=== PATIENT | male | born 1965 | race Caucasian/White ===

== ENCOUNTER 2018-05-15 15:06 | Emergency (ER) | payer MEDICAID, SELFPAY ==
[2018-05-15 15:14] VITALS: BP 115/70; PULSE 68; RESP 16; TEMP 37; O2SAT 99
--- NOTE | 2018-05-15 15:18 | W.ED.GENAD ---
Discharge Plan Disposition Patient Disposition: HOME Condition: Good Discharge Details Chief Complaint: Sorethroat Clinical Impression: Acute sore throat, URI (upper respiratory infection) Primary Care Provider: Jos Nance ED Provider: Christiano Elliott Home Meds and New Rx's Prescriptions: No Action gabapentin 100 mg capsule 100 mg PO BID Qty: 60 RF: 5 ranitidine HCl 150 mg tablet 150 mg PO HS Qty: 90 RF: 3 metformin [Glucophage] 1,000 mg tablet 1,000 mg PO BID Qty: 180 RF: 4 isosorbide mononitrate 30 mg tablet extended release 24 hr 30 mg PO DAILY Qty: 90 RF: 3 aspirin [Aspirin Low-Strength] 81 MG tablet,chewable 81 mg PO DAILY RF: 0 lancets [[employer] AccessTouch Delica Lancets] 1 EACH misc 1 ea Miscellaneous TID Qty: 100 RF: 5 blood-glucose meter [[employer] AccessTouch Ultra2] 1 EACH kit 1 ea Miscellaneous DAILY Qty: 1 RF: 0 blood-glucose meter [[employer] AccessTouch UltraMini] 1 EACH kit 1 ea Miscellaneous QID Qty: 1 RF: 0 pantoprazole 40 MG tablet,delayed release (DR/EC) 40 mg PO DAILY Qty: 90 RF: 4 nitroglycerin [Nitrostat] 0.4 MG tablet, sublingual 0.4 mg Sublingual ONCE PRNQty: 30 RF: 0 rosuvastatin [Crestor] 40 MG tablet 40 mg PO DAILY Qty: 90 RF: 4 Spiriva with HandiHaler 18 MCG capsule, w/inhalation device 1 cap Inhalation DAILY Qty: 30 RF: 5 infoBizzTOUCH ULTRA TEST STRIPS 1 EACH strip 1 ea Miscellaneous QID Qty: 120 RF: 5 metoprolol succinate 100 MG tablet extended release 24 hr 1 tab PO DAILY Qty: 90 RF: 3 ProAir HFA 8.5 GM HFA aerosol inhaler 2 puff Inhalation Q4H PRN Qty: 3 RF: 4 Symbicort 10.2 GM HFA aerosol inhaler 2 puff Inhalation BID Qty: 1 RF: 3 Humulin R U-500 (Conc) Kwikpen 500 unit/mL (3 mL) insulin pen 20 - 50 unit subcut AC Qty: 6 RF: 3 pen needle, diabetic [Pen Needle] 31 gauge x 5/16 needle 1 ea Miscellaneous TID Qty: 100 RF: 11 clopidogrel [Plavix] 75 mg tablet 75 mg PO DAILY Qty: 90 RF: 4 Discharge Instructions Instructions: Upper Respiratory Infection (ED) Additional Instructions: If you notice any worsening of your symptoms, or any new symptoms such as vomiting, diarrhea, fever, chills, shortness of breath, chest pain, numbness, weakness, or fainting , please return immediately to the emergency department for reevaluation. Please follow up with your primary care provider as soon as possible for reassessment and reevaluation. As always, it was a pleasure participating in your medical care today. Referrals: Jos Nance [Primary Care Provider] - Medical Decision Making This is a 53-year-old male who presents with signs and symptoms of a sore throat. Strep is negative. I suspect adenovirus and rhinovirus as to the cause. Symptomatology shows no red flags of meningitis, fever, chills and reassuring vital signs. Patient will be discharged home with recommendations for continued Tylenol, Motrin, salt water gargles, and how to use. He does have follow-up with his family doctor in the next 3 days. I have extensively reviewed the treatment plan and discharge instructions with the patient and their family. I have addressed all patient concerns at this time. The patient and family was made aware of what symptoms to monitor for that would warrant a return to the emergency department. Discussed the plan with the patient and family, they demonstrate verbal understanding and agreement with our assessment and plan at this time. HPI General Date/Time Provider Initiated Documentation: 05/15/18 15:07. HPI Narrative: This is a 53-year-old male with past medical history of coronary artery disease, Plavix use, fibrillator, who presents for sore throat. It is been present for the last 5 days. Is slightly improved with Motrin salt water washes. Comes in today for evaluation of if it is strep. He denies any headache or neck pain. He denies any fever or chills. No other modifying factors. He has no difficulty swallowing or drinking. Related Data Home Medications Medication Instructions Recorded Confirmed aspirin [Aspirin Low-Strength] 81 mg PO DAILY tab-cap 03/27/13 02/11/18 lancets [One Touch Delica] #100 ea 03/26/14 02/11/18 blood-glucose meter [Onetouch #1 kit 01/22/16 02/11/18 Ultra2] blood-glucose meter [Onetouch #1 kit 05/29/16 02/11/18 Ultramini] pantoprazole 40 mg PO DAILY #90 tab-cap 08/10/17 02/11/18 nitroglycerin [Nitrostat] 0.4 mg SUBLINGUAL ONCE PRN #30 11/09/17 02/11/18 tab-cap rosuvastatin [Crestor] 40 mg PO DAILY #90 tab-cap 11/09/17 02/11/18 tiotropium bromide [Spiriva 1 cap INHALATION DAILY #30 tab-cap 11/09/17 02/11/18 Handihaler] albuterol sulfate [Proair Hfa] 2 puff INHALATION Q4H PRN #3 11/15/17 02/11/18 inhaler budesonide-formoterol [Symbicort 2 puff INHALATION BID #1 inhaler 11/15/17 02/11/18 160/4.5 Mcg Inhaler] metoprolol succinate 1 tab PO DAILY #90 tab 11/15/17 02/11/18 gabapentin 100 mg capsule 100 mg PO BID #60 tab-cap 02/11/18 02/11/18 isosorbide mononitrate ER 30 mg 30 mg PO DAILY #90 tab-cap 02/11/18 02/11/18 tablet,extended release 24 hr metformin 1,000 mg tablet 1,000 mg PO BID #180 tab-cap 02/11/18 02/11/18 ranitidine 150 mg tablet 150 mg PO HS #90 tab-cap 02/11/18 02/11/18 insulin regular human U-500 20 - 50 unit SUBCUT AC #6 pen 03/22/18 concentrate 500 unit/mL(3 mL) subcut pen pen needle, diabetic 31 gauge x #100 ea 03/28/1809/15 clopidogrel 75 mg tablet 75 mg PO DAILY #90 tab 05/13/18 Previous Rx's Medication Instructions Recorded pantoprazole 40 mg PO DAILY #90 tab-cap 08/10/17 rosuvastatin [Crestor] 40 mg PO DAILY #90 tab-cap 11/09/17 tiotropium bromide [Spiriva 1 cap INHALATION DAILY #30 tab-cap 11/09/17 Handihaler] albuterol sulfate [Proair Hfa] 2 puff INHALATION Q4H PRN #3 11/15/17 inhaler budesonide-formoterol [Symbicort 2 puff INHALATION BID #1 inhaler 11/15/17 160/4.5 Mcg Inhaler] metoprolol succinate 1 tab PO DAILY #90 tab 11/15/17 gabapentin 100 mg capsule 100 mg PO BID #60 tab-cap 02/11/18 isosorbide mononitrate ER 30 mg 30 mg PO DAILY #90 tab-cap 02/11/18 tablet,extended release 24 hr metformin 1,000 mg tablet 1,000 mg PO BID #180 tab-cap 02/11/18 ranitidine 150 mg tablet 150 mg PO HS #90 tab-cap 02/11/18 insulin regular human U-500 20 - 50 unit SUBCUT AC #6 pen 03/22/18 concentrate 500 unit/mL(3 mL) subcut pen pen needle, diabetic 31 gauge x #100 ea 03/28/1809/15 clopidogrel 75 mg tablet 75 mg PO DAILY #90 tab 05/13/18 Allergies Allergy/AdvReac Type Severity Reaction Status Date / Time No Known Allergies Allergy Unverified 05/15/18 15:20 Review of Systems Review of Systems All systems reviewed & are unremarkable except as noted in HPI and below PFSH Surgical History Stent placement Social History Smoking/Tobacco Use Status: Former Tobacco Use Exam Narrative Exam Narrative: 1.Const: Well-nourished, Well-developed, appearing stated age 2.Eyes: PERRL, no conjunctival injection, and symmetrical lids. 3.ENT: Atraumatic external nose and ears. Moist MM. Neck: Symmetric, trachea midline, No thyromegaly. Patient demonstrates good movement of cervical neck. There is no nuchal rigidity, no nuchal tenderness. Patient is able to flex the neck without any difficulty or significant pain. Negative Kernig's and Brudzinski sign. No significant erythema the posterior oropharynx. No tonsillar exudates 4.CVS: +S1/S2, No murmurs or gallops. Peripheral pulses 2+ and equal in all extremities. Brisk capillary refill in all extremities. 5.RESP: Unlabored respiratory effort. Clear to auscultation bilaterally. No wheezes rales or rhonchi 6.GI: Soft, Nontender/Nondistended, No hepatosplenomegaly. No guarding or rebound. 7.MSK: Normocephalic/Atraumatic, Extremities w/o deformity or ttp No cyanosis or clubbing, Normal movement of all extremities 8.Skin: Warm, Dry. No rashes or lesions. 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 Sensation grossly intact, no focal neurologic deficits. 10.Psych: (AAO) x3. Appropriate mood and affect
--- NOTE | 2018-05-15 15:37 | ED.GENADUL_ITS ---
Discharge Plan Disposition Patient Disposition: HOME Condition: Good Discharge Details Chief Complaint: Sorethroat Clinical Impression: Acute sore throat, URI (upper respiratory infection) Primary Care Provider: Jos Nance ED Provider: Christiano Elliott Home Meds and New Rx's Prescriptions: No Action gabapentin 100 mg capsule 100 mg PO BID Qty: 60 RF: 5 ranitidine HCl 150 mg tablet 150 mg PO HS Qty: 90 RF: 3 metformin [Glucophage] 1,000 mg tablet 1,000 mg PO BID Qty: 180 RF: 4 isosorbide mononitrate 30 mg tablet extended release 24 hr 30 mg PO DAILY Qty: 90 RF: 3 aspirin [Aspirin Low-Strength] 81 MG tablet,chewable 81 mg PO DAILY RF: 0 lancets [[employer]Touch Delica Lancets] 1 EACH misc 1 ea Miscellaneous TID Qty: 100 RF: 5 blood-glucose meter [[employer]Touch Ultra2] 1 EACH kit 1 ea Miscellaneous DAILY Qty: 1 RF: 0 blood-glucose meter [[employer]Touch UltraMini] 1 EACH kit 1 ea Miscellaneous QID Qty: 1 RF: 0 pantoprazole 40 MG tablet,delayed release (DR/EC) 40 mg PO DAILY Qty: 90 RF: 4 nitroglycerin [Nitrostat] 0.4 MG tablet, sublingual 0.4 mg Sublingual ONCE PRNQty: 30 RF: 0 rosuvastatin [Crestor] 40 MG tablet 40 mg PO DAILY Qty: 90 RF: 4 Spiriva with HandiHaler 18 MCG capsule, w/inhalation device 1 cap Inhalation DAILY Qty: 30 RF: 5 TagkastTOUCH ULTRA TEST STRIPS 1 EACH strip 1 ea Miscellaneous QID Qty: 120 RF: 5 metoprolol succinate 100 MG tablet extended release 24 hr 1 tab PO DAILY Qty: 90 RF: 3 ProAir HFA 8.5 GM HFA aerosol inhaler 2 puff Inhalation Q4H PRN Qty: 3 RF: 4 Symbicort 10.2 GM HFA aerosol inhaler 2 puff Inhalation BID Qty: 1 RF: 3 Humulin R U-500 (Conc) Kwikpen 500 unit/mL (3 mL) insulin pen 20 - 50 unit subcut AC Qty: 6 RF: 3 pen needle, diabetic [Pen Needle] 31 gauge x 5/16 needle 1 ea Miscellaneous TID Qty: 100 RF: 11 clopidogrel [Plavix] 75 mg tablet 75 mg PO DAILY Qty: 90 RF: 4 Discharge Instructions Instructions: Upper Respiratory Infection (ED) Additional Instructions: If you notice any worsening of your symptoms, or any new symptoms such as vomiting, diarrhea, fever, chills, shortness of breath, chest pain, numbness, weakness, or fainting , please return immediately to the emergency department for reevaluation. Please follow up with your primary care provider as soon as possible for reassessment and reevaluation. As always, it was a pleasure participating in your medical care today. Referrals: Jos Nance [Primary Care Provider] - Medical Decision Making This is a 53-year-old male who presents with signs and symptoms of a sore throat. Strep is negative. I suspect adenovirus and rhinovirus as to the cause. Symptomatology shows no red flags of meningitis, fever, chills and reassuring vital signs. Patient will be discharged home with recommendations for continued Tylenol, Motrin, salt water gargles, and how to use. He does have follow-up with his family doctor in the next 3 days. I have extensively reviewed the treatment plan and discharge instructions with the patient and the ir family. I have addressed all patient concerns at this time. The patient and family was made aware of what symptoms to monitor for that would warrant a return to the emergency department. Discussed the plan with the patient and family, they demonstrate verbal understanding and agreement with our assessment and plan at this time. HPI General Date/Time Provider Initiated Documentation: 05/15/18 15:07 . HPI Narrative: This is a 53-year-old male with past medical history of coronary artery disease, Plavix use, fibrillator, who presents for sore throat. It is been present for the last 5 days. Is slightly improved with Motrin salt water washes. Comes in today for evaluation of if it is strep. He denies any headache or neck pain. He denies any fever or chills. No other modifying factors. He has no difficulty swallowing or drinking. Related Data Home Medications Medication Instructions Recorded Confirmed aspirin [Aspirin Low-Strength] 81 mg PO DAILY tab-cap 03/27/13 02/11/18 lancets [One Touch Delica] #100 ea 03/26/14 02/11/18 blood-glucose meter [Onetouch #1 kit 01/22/16 02/11/18 Ultra2] blood-glucose meter [Onetouch #1 kit 05/29/16 02/11/18 Ultramini] pantoprazole 40 mg PO DAILY #90 tab-cap 08/10/17 02/11/18 nitroglycerin [Nitrostat] 0.4 mg SUBLINGUAL ONCE PRN #30 11/09/17 02/11/18 tab-cap rosuvastatin [Crestor] 40 mg PO DAILY #90 tab-cap 11/09/17 02/11/18 tiotropium bromide [Spiriva 1 cap INHALATION DAILY #30 tab-cap 11/09/17 02/11/18 Handihaler] albuterol sulfate [Proair Hfa] 2 puff INHALATION Q4H PRN #3 11/15/17 02/11/18 inhaler budesonide-formoterol [Symbicort 2 puff INHALATION BID #1 inhaler 11/15/17 02/11/18 160/4.5 Mcg Inhaler] metoprolol succinate 1 tab PO DAILY #90 tab 11/15/17 02/11/18 gabapentin 100 mg capsule 100 mg PO BID #60 tab-cap 02/11/18 02/11/18 isosorbide mononitrate ER 30 mg 30 mg PO DAILY #90 tab-cap 02/11/18 02/11/18 tablet,extended release 24 hr metformin 1,000 mg tablet 1,000 mg PO BID #180 tab-cap 02/11/18 02/11/18 ranitidine 150 mg tablet 150 mg PO HS #90 tab-cap 02/11/18 02/11/18 insulin regular human U-500 20 - 50 unit SUBCUT AC #6 pen 03/22/18 concentrate 500 unit/mL(3 mL) subcut pen pen needle, diabetic 31 gauge x #100 ea 03/28/1809/15 clopidogrel 75 mg tablet 75 mg PO DAILY #90 tab 05/13/18 Previous Rx's Medication Instructions Recorded pantoprazole 40 mg PO DAILY #90 tab-cap 08/10/17 rosuvastatin [Crestor] 40 mg PO DAILY #90 tab-cap 11/09/17 tiotropium bromide [Spiriva 1 cap INHALATION DAILY #30 tab-cap 11/09/17 Handihaler] albuterol sulfate [Proair Hfa] 2 puff INHALATION Q4H PRN #3 11/15/17 inhaler budesonide-formoterol [Symbicort 2 puff INHALATION BID #1 inhaler 11/15/17 160/4.5 Mcg Inhaler] metoprolol succinate 1 tab PO DAILY #90 tab 11/15/17 gabapentin 100 mg capsule 100 mg PO BID #60 tab-cap 02/11/18 isosorbide mononitrate ER 30 mg 30 mg PO DAILY #90 tab-cap 02/11/18 tablet,extended release 24 hr metformin 1,000 mg tablet 1,000 mg PO BID #180 tab-cap 02/11/18 ranitidine 150 mg tablet 150 mg PO HS #90 tab-cap 02/11/18 insulin regular human U-500 20 - 50 unit SUBCUT AC #6 pen 03/22/18 concentrate 500 unit/mL(3 mL) subcut pen pen needle, diabetic 31 gauge x #100 ea 03/28/1809/15 clopidogrel 75 mg tablet 75 mg PO DAILY #90 tab 05/13/18 Allergies Allergy/AdvReac Type Severity Reaction Status Date / Time No Known Allergies Allergy Unverified 05/15/18 15:20 Review of Systems Review of Systems All systems reviewed & are unremarkable except as noted in HPI and below PFSH Surgical History Stent placement Social History Smoking/Tobacco Use Status: Former Tobacco Use Exam Narrative Exam Narrative: 1.Const: Well-nourished, Well-developed, appearing stated age 2.Eyes: PERRL, no conjunctival injection, and symmetrical lids. 3.ENT: Atraumatic external nose and ears. Moist MM. Neck: Symmetric, trachea midline, No thyromegaly. Patient demonstrates good movement of cervical neck. There is no nuchal rigidity, no nuchal tenderness. Patient is able to flex the neck without any difficulty or significant pain. Negative Kernig's and Brudzinski sign. No significant erythema the posterior oropharynx. No tonsillar exudates 4.CVS: +S1/S2, No murmurs or gallops. Peripheral pulses 2+ and equal in all extremities. Brisk capillary refill in all extremities. 5.RESP: Unlabored respiratory effort. Clear to auscultation bilaterally. No wheezes rales or rhonchi 6.GI: Soft, Nontender/Nondistended, No hepatosplenomegaly. No guarding or rebound. 7.MSK: Normocephalic/Atraumatic, Extremities w/o deformity or ttp No cyanosis or clubbing, Normal movement of all extremities 8.Skin: Warm, Dry. No rashes or lesions. 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 Sensation grossly intact, no focal neurologic deficits. 10.Psych: (AAO) x3. Appropriate mood and affect
== END 2018-05-15 15:43 | disposition home or self-care (01) ==
LOC: ER 15:43
PROVIDERS: Emergency Provider Student in an Organized Health Care Education/Training Program; PCP Family Medicine
DX: J06.9 Acute upper respiratory infection, unspecified (principal)
CPT/HCPCS: 87880; 99282; 87081

== ENCOUNTER 2018-05-26 08:39 | Outpatient (CLI) | payer MEDICAID, SELFPAY ==
[2018-05-26 16:11] LABS: Hemoglobin A1C 8.4 % (4.5-6.2)
== END 2018-05-26 08:59 ==
PROVIDERS: PCP Family Medicine; Visit Provider Family Medicine
DX: E11.65 Type 2 diabetes mellitus with hyperglycemia (principal)
CPT/HCPCS: 36415; 83036

== ENCOUNTER 2018-12-26 14:16 | Outpatient (CLI) | payer MEDICAID, SELFPAY ==
[2018-12-26 16:16] LABS: Hemoglobin A1C 8.2 % (4.5-6.2)
== END 2018-12-26 14:36 ==
PROVIDERS: PCP Family Medicine; Visit Provider Family Medicine
DX: E11.9 Type 2 diabetes mellitus without complications (principal)
CPT/HCPCS: 36415; 83036

== ENCOUNTER 2019-04-04 08:22 | Outpatient (CLI) | payer MEDICAID, SELFPAY ==
[2019-04-04 16:42] LABS: Hemoglobin A1C 7.8 % (4.5-6.2)
== END 2019-04-04 08:42 ==
PROVIDERS: PCP Family Medicine; Visit Provider Family Medicine
DX: E11.9 Type 2 diabetes mellitus without complications (principal)
CPT/HCPCS: 36415; 83036

== ENCOUNTER 2019-06-23 15:50 | Emergency (ER) | payer MEDICAID, SELFPAY ==
[2019-06-23] VITALS (44 sets, daily range): BP systolic 100–116; BP diastolic 50–63; PULSE 55–67; RESP 13–22; TEMP 36.5; O2SAT 91–98
--- NOTE | 2019-06-23 16:00 | DI.RAD_ITS ---
EXAM: XR PORTABLE CHEST AP CLINICAL HISTORY: chest pain TECHNIQUE: COMPARISON: No exams were available for comparison FINDINGS: Two portable views were obtained. There are vascular clips overlying left hilum. There is a transve nous cardiac pacemaker in position. Lungs are clear and well expanded. No pleural effusion on this frontal film. Cardiac size within normal limits. IMPRESSION: No evidence of acute process.
[2019-06-23 16:18] LABS: Abs Immature Grans 0.02 k/cumm (0.0-0.09); Absolute Basophil Count 0.05 k/cumm (0.0-0.2); Absolute Eosinophil Count 0.16 k/cumm (0.0-0.7); Absolute Lymphocyte Count 2.15 k/cumm (1.2-3.4); Absolute Monocyte Count 0.67 k/cumm (0.11-0.7); Absolute Neutrophil Count 4.01 k/cumm (1.2-6.7); Basophils % 0.7; Eosinophils % 2.3; HCT 38.4 % (40.0-50.0); HGB 12.5 g/dL (13.5-17.5); Immature Grans % 0.3 %; Lymphocytes % 30.5; Mean Corp. HGB Concentration 32.6 g/dL (32.0-36.0); Mean Corpuscular Hemoglobin 27.4 pg (27.0-33.0); Mean Platelet Volume 11.7 fL (8.0-11.0); Monocytes % 9.5; Neutrophils % 56.7; Platelet Count 249 x1000/uL (130-400); RBC 4.57 m/cumm (4.50-6.00); RBC Distribution Width 14.6 % (11.8-14.1); White Blood Cell Count 7.06 k/cumm (4.4-10.8)
[2019-06-23] MEDS: Normal Saline Flush 10 ML SYR IVP (16:25)
[2019-06-23] MEDS: Normal Saline 250 ML IV (16:28)
--- NOTE | 2019-06-23 16:36 | DI.VRAD_ITS ---
PROCEDURE INFORMATION: Exam: XR Chest, 1 View Exam date and time: 06/23/2019 4:20 PM Age: 54 years old Clinical indication: Chest pain; Prior surgery TECHNIQUE: Imaging protocol: XR of the chest Views: 1 view. COMPARISON: CR CHEST 2 VIEWS PA,LAT 03/20/2013 12:17 PM FINDINGS: Tubes, catheters and devices: Transvenous pacemaker leads Lungs: Unremarkable. No consolidation. Pleural space: Unremarkable. No pleural effusion. No pneumothorax. Heart/Mediastinum: Stable cardiac silhouette Bones/joints: Median sternotomy IMPRESSION: No acute process Dictated and Authenticated by: Eliana Tipton MD. Ordering:JADEN Ivy MD
[2019-06-23 16:43] LABS: ALT 23 U/L (16-63); AST 13 U/L (15-37); Albumin 3.5 g/dL (3.4-5.0); Alkaline Phosphatase 80 U/L (46-116); Anion Gap 7.6 mmol/L (3-11); BUN 19 mg/dL (7-18); Bilirubin, Total 0.4 mg/dL (0.2-1.0); CO2 31.4 mmol/L (21.0-32.0); Calcium 8.7 mg/dL (8.5-10.1); Chloride 102 mmol/L (98-107); Estimated GFR 53.01 (mL/min/1.73m2); Glucose 142 mg/dL (74-106); Potassium 3.7 mmol/L (3.5-5.1); Sodium 141 mmol/L (136-145); Total Protein 6.9 g/dL (6.4-8.2)
[2019-06-23 16:50] LABS: Troponin I 0.07 ng/Ml (<0.06)
--- NOTE | 2019-06-23 17:21 | W.ED.GENAD ---
Discharge Plan Disposition Patient Disposition: [facility] Condition: Critical Discharge Details Chief Complaint: Chest Pain Clinical Impression: Chest pain, Acute non-ST elevation myocardial infarction (NSTEMI) Primary Care Provider: Jos Nance ED Provider: Biju Youssef Home Meds and New Rx's Prescriptions: No Action Humulin R U-500 (Conc) Kwikpen 500 unit/mL (3 mL) insulin pen 20 - 50 unit subcut AC Qty: 6 RF: 3 nitroglycerin [Nitrostat] 0.4 mg tablet, sublingual 0.4 mg Sublingual Q5-15M MDD 3 tabs PRN (Reason: chest pain) Qty: 25 RF: 0 (DME) pen needle, diabetic [Pen Needle] 31 gauge x 5/16 needle 1 ea Miscellaneous TID Qty: 100 RF: 11 (DME) blood sugar diagnostic [Goodie Goodie App Ultra Blue Test Strip] Strip See Dose Instructions .ROUTE .MEDSUPPLY Qty: 400 RF: 3 budesonide-formoterol [Symbicort] 160-4.5 mcg/actuation HFA aerosol inhaler 2 puff Inhalation BID Qty: 1 RF: 3 Jardiance 25 mg tablet 25 mg PO QAM Qty: 90 RF: 3 fluoxetine 20 mg tablet 20 mg PO DAILY Qty: 90 RF: 3 metformin [Glucophage] 1,000 mg tablet 1,000 mg PO BID Qty: 180 RF: 4 metoprolol succinate 100 mg tablet extended release 24 hr 150 mg PO DAILY Qty: 135 RF: 3 pantoprazole 40 mg tablet,delayed release (DR/EC) 40 mg PO DAILY Qty: 90 RF: 4 rosuvastatin [Crestor] 40 mg tablet 40 mg PO DAILY Qty: 90 RF: 4 famotidine [Pepcid] 20 mg tablet 20 mg PO DAILY Qty: 90 RF: 3 Spiriva Respimat 1.25 mcg/actuation mist 2 puff IH DAILY Qty: 4 RF: 11 albuterol sulfate [ProAir HFA] 90 mcg/actuation HFA aerosol inhaler 2 puff Inhalation Q4H PRN Qty: 3 RF: 4 aspirin [Aspirin Low-Strength] 81 MG tablet,chewable 81 mg PO DAILY RF: 0 (DME) lancets [BioVexTouch Delica Lancets] 1 EACH misc 1 ea Miscellaneous TID Qty: 100 RF: 5 (DME) blood-glucose meter [OneTouch Ultra2 Meter] 1 EACH kit 1 ea Miscellaneous DAILY Qty: 1 RF: 0 (DME) blood-glucose meter [OneTouch UltraMini] 1 EACH kit 1 ea Miscellaneous QID Qty: 1 RF: 0 gabapentin 100 mg capsule 100 mg PO BID Qty: 60 RF: 5 amlodipine 2.5 mg tablet 2.5 mg PO DAILY RF: 0 ranolazine [Ranexa] 500 mg tablet extended release 12 hr 500 mg PO BID RF: 0 isosorbide mononitrate 120 mg tablet extended release 24 hr 240 mg PO DAILY RF: 0 Discharge Data Discharge Date/Time-TO BE ENTERED AT DEPARTURE: 06/23/19 21:00 Medical Decision Making 17:35 -- 54-year-old male with history of COPD, diabetes, hypertension, hyperlipidemia, coronary artery disease status post CABG, here with chest pain, viselike pressure, now resolved after 1 sublingual nitro. He continues to have some mild left shoulder discomfort. Patient with low normal blood pressure. I will give IV fluid bolus 500 mL. Concern for ACS. Screening ECG was reviewed and interpreted by me: Sinus rhythm 82 bpm, normal axis, biphasic T waves are noted V2, V3, V4. In comparison to old ECG from 2016 findings look improved today. Chest x-ray was reviewed and interpreted by radiology: No acute process. Labs reviewed: Troponin in indeterminate range 0.07. I called and spoke with [facility] cardiology and requested transfer. I spoke with sc[place] Dr. Varma who notes Dr. Soni to accept patient in transfer. Currently awaiting bed availability. He agrees with starting a heparin bolus and infusion, Plavix and aspirin. He also recommends starting nitroglycerin drip and monitoring blood pressure closely. If nitroglycerin does not improve left shoulder discomfort or patient's blood pressure decreases he recommends stopping. --On reassessment, patient noted pain in his shoulder completely resolved spontaneously. Nitroglycerin drip was held. --Repeat ECG was reviewed and interpreted by me: Sinus bradycardia 56 bpm, persistent biphasic T waves, no significant change from prior. Repeat troponin elevated and now 0.10. Findings consistent with NSTEMI. Patient reassessed multiple times and remains pain-free. HPI General Mode of arrival: ambulatory. Date/Time Provider Initiated Documentation: 06/23/19 16:05. Limitations to Documentation: no limitations. Information obtained by: patient. HPI Narrative: 54-year-old male with history of COPD, diabetes, hypertension, hyperlipidemia, coronary artery disease status post CABG, here with chief complaint of chest pain. Patient notes pain started around 1230 today. Pain was severe and felt like a vice squeezing his chest. Patient took a sublingual nitro which resolved pain. He notes he has persistent discomfort in his left shoulder which he thinks may be musculoskeletal. No associated diaphoresis or nausea. He does note that prior to onset of chest discomfort today he was experiencing some mild headache and some dizziness. Patient has no headache at this time. Patient denies leg pain, swelling or shortness of breath. No recent long distance travel. Related Data Home Medications Medication Instructions Recorded Confirmed aspirin [Aspirin Low-Strength] 81 mg PO DAILY tab-cap 03/27/13 07/14/19 lancets [One Touch Delica] #100 ea 03/26/14 07/14/19 blood-glucose meter [Onetouch #1 kit 01/22/16 07/14/19 Ultra2] blood-glucose meter [Onetouch #1 kit 05/29/16 07/14/19 Ultramini] insulin regular hum U-500 conc 20 - 50 unit SUBCUT AC #6 pen 12/28/18 07/14/19 nitroglycerin 0.4 mg sublingual 0.4 mg SUBLINGUAL Q5-15M PRN #25 04/05/19 07/14/19 tablet tab-cap MDD 3 tabs blood sugar diagnostic #400 each 04/06/19 07/14/19 pen needle, diabetic 31 gauge x #100 ea 04/06/19 07/14/1909/15 gabapentin 100 mg capsule 100 mg PO BID #60 tab-cap 04/19/19 07/14/19 budesonide-formoterol HFA 160 2 puff INHALATION BID #1 inhaler 07/05/19 07/14/19 mcg-4.5 mcg/actuation aerosol inhaler empagliflozin 25 mg tablet 25 mg PO QAM #90 tab 07/05/19 07/14/19 famotidine 20 mg tablet 20 mg PO DAILY #90 tab 07/05/19 07/14/19 fluoxetine 20 mg tablet 20 mg PO DAILY #90 tab 07/05/19 07/14/19 metformin 1,000 mg tablet 1,000 mg PO BID #180 tab-cap 07/05/19 07/14/19 metoprolol succinate 100 mg 150 mg PO DAILY #135 tab 07/05/19 07/14/19 tablet,extended release 24 hr pantoprazole 40 mg tablet,delayed 40 mg PO DAILY #90 tab-cap 07/05/19 07/14/19 release rosuvastatin 40 mg tablet 40 mg PO DAILY #90 tab-cap 07/05/19 07/14/19 tiotropium bromide 1.25 2 puff IH DAILY #4 gm 07/05/19 07/14/19 mcg/actuation mist for inhalation albuterol sulfate 90 mcg/actuation 2 puff INHALATION Q4H PRN #3 07/14/19 07/14/19 aerosol inhaler inhaler amlodipine 2.5 mg tablet 2.5 mg PO DAILY 07/14/19 07/14/19 isosorbide mononitrate 120 mg 240 mg PO DAILY tab 07/14/19 07/14/19 tablet,extended release 24 hr ranolazine 500 mg tablet,extended 500 mg PO BID 07/14/19 07/14/19 release,12 hr Previous Rx's Medication Instructions Recorded insulin regular hum U-500 conc 20 - 50 unit SUBCUT AC #6 pen 12/28/18 nitroglycerin 0.4 mg sublingual 0.4 mg SUBLINGUAL Q5-15M PRN #25 04/05/19 tablet tab-cap MDD 3 tabs blood sugar diagnostic #400 each 04/06/19 pen needle, diabetic 31 gauge x #100 ea 04/06/1909/15 gabapentin 100 mg capsule 100 mg PO BID #60 tab-cap 04/19/19 budesonide-formoterol HFA 160 2 puff INHALATION BID #1 inhaler 07/05/19 mcg-4.5 mcg/actuation aerosol inhaler empagliflozin 25 mg tablet 25 mg PO QAM #90 tab 07/05/19 famotidine 20 mg tablet 20 mg PO DAILY #90 tab 07/05/19 fluoxetine 20 mg tablet 20 mg PO DAILY #90 tab 07/05/19 metformin 1,000 mg tablet 1,000 mg PO BID #180 tab-cap 07/05/19 metoprolol succinate 100 mg 150 mg PO DAILY #135 tab 07/05/19 tablet,extended release 24 hr pantoprazole 40 mg tablet,delayed 40 mg PO DAILY #90 tab-cap 07/05/19 release rosuvastatin 40 mg tablet 40 mg PO DAILY #90 tab-cap 07/05/19 tiotropium bromide 1.25 2 puff IH DAILY #4 gm 07/05/19 mcg/actuation mist for inhalation albuterol sulfate 90 mcg/actuation 2 puff INHALATION Q4H PRN #3 07/14/19 aerosol inhaler inhaler Allergies Allergy/AdvReac Type Severity Reaction Status Date / Time No Known Allergies Allergy Unverified 07/14/19 09:41 General Stated Complaint: Chest Pain CAMERON: 3 Review of Systems All systems reviewed & are unremarkable except as noted in HPI and below Constitutional Constitutional: Denies fever(s) Cardiovascular Cardiovascular: Reports as per HPI [facility] Social History Smoking/Tobacco Use Status: Former Tobacco Use Alcohol Intake: current Alcohol Intake frequency: holidays/special occasions only Drug use: Never Substance use type: does not use Do you feel safe at home: Yes Do you feel safe in your relationship?: Yes Exam Const General: cooperative and no acute distress HENMT Mouth: moist mucous membranes Eyes Conjunctivae: normal conjunctivae Sclera: normal sclerae Neck Neck: trachea midline and supple Resp Auscultation: clear to auscultation bilaterally, no rales, no rhonchi and no wheezes Cardio Jugular venous pressure: no JVD Rate: regular rate and not tachycardic Rhythm: regular rhythm GI Palpation: soft, not firm, no guarding, no masses, not rigid and nontender Skin General skin exam: no rashes or lesions noted Neuro General: patient alert, patient awake and tone normal Extrem General: no calf tenderness and no edema Psych Appearance: grossly normal Mental Status: mental status grossly normal Course Vital Signs Vital signs: Vital Signs Temperature 36.5 C 06/23/19 15:55 Pulse 66 06/23/19 15:55 Blood Pressure 109/60 06/23/19 15:55 Pulse Oximetry 98 06/23/19 15:55 Temperature 36.5 C 06/23/19 15:55 Temperature Source Temporal Artery Scan 06/23/19 15:55 Pulse 59 L 02/21/20 17:18 Pulse Rhythm Regular 06/23/19 17:18 Pulse Strength Normal 06/23/19 17:18 Pulse 58 L 06/23/19 17:17 Respiratory Rate 18 06/23/19 17:18 Respiratory Effort 06/23/19 17:18 Respiratory Depth Normal 06/23/19 17:18 Respiratory Pattern Normal 06/23/19 17:18 Blood Pressure 102/59 L 06/23/19 17:18 Blood Pressure Mean 73 06/23/19 17:18 Blood Pressure Position Sitting 06/23/19 15:55 Pulse Oximetry 94 L 06/23/19 17:18 Oxygen Delivery Method Room Air 06/23/19 17:18 Oxygen Flow Rate 0 06/23/19 17:18 Pain Level 1 06/23/19 15:55 Lab/Test Results Lab/Test Results: Laboratory Tests Range/Units 06/23/19 06/23/19 16:08 16:08 WBC (4.4-10.8) k/cumm 7.06 RBC (4.50-6.00) m/cumm 4.57 Hgb (13.5-17.5) g/dL 12.5 L Hct (40.0-50.0) % 38.4 L MCV (80-95) fL 84.0 MCH (27.0-33.0) pg 27.4 MCHC (32.0-36.0) g/dL 32.6 RDW (11.8-14.1) % 14.6 H Plt Count (130-400) x1000/uL 249 MPV (8.0-11.0) fL 11.7 H Immature Gran % % 0.3 Neutrophils % 56.7 Lymphocytes % 30.5 Monocytes % 9.5 Eosinophils % 2.3 Basophils % 0.7 Absolute Neutrophils (1.2-6.7) k/cumm 4.01 Absolute Lymphocytes (1.2-3.4) k/cumm 2.15 Absolute Monocytes (0.11-0.7) k/cumm 0.67 Absolute Eosinophils (0.0-0.7) k/cumm 0.16 Absolute Basophils (0.0-0.2) k/cumm 0.05 Sodium (136-145) mmol/L 141 Potassium (3.5-5.1) mmol/L 3.7 Chloride (98-107) mmol/L 102 Carbon Dioxide (21.0-32.0) mmol/L 31.4 Anion Gap (3-11) mmol/L 7.6 BUN (7-18) mg/dL 19 H Creatinine (0.70-1.30) mg/dL 1.40 H Estimated GFR/1.73 m2 (mL/min/1.73m2) 53.01 Glucose (74-106) mg/dL 142 H Calcium (8.5-10.1) mg/dL 8.7 Total Bilirubin (0.2-1.0) mg/dL 0.4 AST (15-37) U/L 13 L ALT (16-63) U/L 23 Alkaline Phosphatase (46-116) U/L 80 Troponin I (<0.06) ng/Ml 0.07 Total Protein (6.4-8.2) g/dL 6.9 Albumin (3.4-5.0) g/dL 3.5 Critical Care Time Critical Care Time Critical Care Time: Yes Total Critical Care Time: 80 Attestation: I spent greater than 80 minutes addressing this patient's immediate life threats and providing critical care
[2019-06-23] MEDS: Clopidogrel 300 MG TAB 600 MG PO (17:40)
[2019-06-23] MEDS: Aspirin 81 MG CHEW 243 MG PO ×2 (17:49→17:50)
== END 2019-06-23 21:00 | disposition short-term general hospital (02) ==
PROVIDERS: Emergency Provider Student in an Organized Health Care Education/Training Program; PCP Family Medicine
DX: I21.4 Non-ST elevation (NSTEMI) myocardial infarction (principal); M25.512 Pain in left shoulder; I25.10 Atherosclerotic heart disease of native coronary artery without angina pectoris; Z95.1 Presence of aortocoronary bypass graft; I10 Essential (primary) hypertension; J44.9 Chronic obstructive pulmonary disease, unspecified; Z87.891 Personal history of nicotine dependence; E11.9 Type 2 diabetes mellitus without complications; Z79.4 Long term (current) use of insulin; Z95.5 Presence of coronary angioplasty implant and graft
CPT/HCPCS: 36415; 36416; 80053; 82962; 93005; 96361; 96365; 96366; 96368; 96376; 99291; 99292; 71045; 84484; 85025; 93010

== ENCOUNTER 2019-07-11 12:06 | Inpatient (IN) | payer MEDICAID, SELFPAY ==
[2019-07-11] VITALS (84 sets, daily range): BP systolic 84–121; BP diastolic 29–86; PULSE 55–72; RESP 9–23; TEMP 36.5–36.6; O2SAT 92–100
--- NOTE | 2019-07-11 12:00 | DI.RAD_ITS ---
EXAM: XR PORTABLE CHEST AP CLINICAL HISTORY: chest pain TECHNIQUE: 2D digital imaging was performed. COMPARISON: XR PORTABLE CHEST AP from 06/23/2019 FINDINGS: MEDIASTINUM: Normal. HEART: Normal. PULMONARY VASCULATURE: Normal. LUNGS: Clear. PLEURAL SPACE: No pleural effusion or pneumothorax. BONE:Degenerative changes are seen in the spine. OTHER FINDINGS:Pacing wires stable in position. Sternal wires are in place. Clips are again seen in the mediastinum. IMPRESSION: No acute pulmonary findings. DATA REPOSITORY: RADIATION DOSE DELIVERED:
--- NOTE | 2019-07-11 12:17 | ED.GENADUL_ITS ---
Discharge Plan Disposition Patient Disposition: [facility] INPATIENT Condition: Stable Discharge Details Chief Complaint: Chest Pain Clinical Impression: Non-ST elevated myocardial infarction (non-STEMI), Chest pain Admit Date/Time: 07/11/19 14:02 Admit Provider: Caleb Maldonado Attending Provider: Caleb Maldonado Primary Care Provider: Jos Nance ED Provider: Christiano Elliott Medical Decision Making Upon my evaluation, this patient had a high probability of imminent or life- threatening deterioration, which required my direct attention, intervention, and personal management. I have personally provided 45 minutes of critical care time exclusive of time spent on separately billable procedures. Time includes review of laboratory data, radiology results, discussion with consultants, and monitoring for potential decompensation. Interventions were performed as documented. This is a 54-year-old male with a past medical history of cardiac disease, double vessel bypass, implanted defibrillator, cardiac stents x5 and restenosis, who presents today for evaluation of chest pain. 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 Took 3 nitroglycerin, this slightly improved his symptoms from an 8 to a 5 out of 10, EMS got there, EKG was unremarkable, they gave 2 additional nitroglycerin, brought his pain down to a 2 which is where he is currently. Pain began at 11 AM, which is 1 hour and 20 minutes ago prior to now. Patient states that this feels identical to previous episodes of cardiac disease that he has had. Of note the patient was recently at [facility] with an elevated troponin and end STEMI discharged 2 weeks ago. At that time he had a repeat cardiac catheterization secondary to his previous 5 stents, bypass and restenosis. At that time of discharge the patient's catheterization showed no acute change from prior study, patient was discharged with an increase of his Imdur, continuation of aspirin. Currently the patient's pain is 2 out of 10, he states it feels identical to previous cardiac episodes. He denies any tearing or ripping sensation. He has no other complaints at this time. He denies any vomiting, diarrhea, syncope, numbness tingling or weakness. No other complaints, no fever or chills. Physical exam demonstrates no significant a bnormalities. EKG shows no evidence of STEMI. Patient's symptoms appear inconsistent with dissection. Will hold off on nitro drip unless his pain does not improve. I feel his symptoms are likely cardiac in nature, especially in conjunction with his known disease. We will reach out to cardiology, monitor closely. 1:35 PM Patient's laboratory work-up has returned, patient demonstrates an elevated troponin at 0.09, patient currently has essentially no chest pain, and is feeling much better. He has had 5 nitroglycerin. EKG shows no evidence of STEMI. proBNP normal. Bedside limited cardiac echo shows no severe wall motion abnormality. I did contact [facility] discussed the case with Jodi the midlevel provider, she does recommend admission to [facility], however no beds are currently available. As the patient is hemodynamically stable, chest pain is resolved, do feel that he is stable at this time. We will keep the patient here admitted until a bed opens up tomorrow expectedly. Jodi does recommend heparinization at this time, but also recommends holding off on Plavix loading currently. We will contact the hospitalist for admission. 3 PM Discussed the case with the hospitalist Dr Maldonado, he agrees with the assessment and plan. Patient will be admitted on heparin for further management until a bed at [facility] opens expectedly tomorrow morning. Patient remains chest pain-free, feels well, and has no other complaints at this time. I have extensively reviewed the treatment plan with the patient. I have addressed all patient concerns at this time. I have also discussed the plan with the admitting physician and they agree with the current assessment and plan and have agreed to assume responsibility for the patient. All parties demonstrate verbal understand ing and agreement with our assessment and plan at this time. At time of transfer to the floor the patient was reassessed and continued to demonstrate current medical stability. No signs of acute respiratory distress requiring intubation, hemodynamic instability requiring pressor support, or rapidly declining mental status. The patient is stable for transport. EKG 12: 09 Rate 61, intervals normal, sinus rhythm, no significant ST elevations or depressions, no evidence of STEMI. No significant changes from 06/23/2019 FINDINGS: MEDIASTINUM: Normal. HEART: Normal. PULMONARY VASCULATURE: Normal. LUNGS: Clear. PLEURAL SPACE: No pleural effusion or pneumothorax. BONE:Degenerative changes are seen in the spine. OTHER FINDINGS:Pacing wires stable in position. Sternal wires are in place. Clips are again seen in the mediastinum. IMPRESSION: No acute pulmonary findings. HPI General Date/Time Provider Initiated Documentation: 07/11/19 12:09 . HPI Narrative: This is a 54-year-old male with a past medical history of cardiac disease, double vessel bypass, implanted defibrillator, cardiac stents x5 and restenosis, who presents today for evaluation of chest pain. 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 Took 3 nitroglycerin, this slightly improved his symptoms from an 8 to a 5 out of 10, EMS got there, EKG was unremarkable, they gave 2 additional nitroglycerin, brought his pain down to a 2 which is where he is currently. Pain began at 11 AM, which is 1 hour and 20 minutes ago prior to now. Patient states that this feels identical to previous episodes of cardiac disease that he has had. Of note the patient was recently at [facility] with an elevated troponin and end STEMI discharged 2 weeks ago. At that time he had a repeat cardiac catheterization secondary to his previous 5 stents, bypass and restenosis. At that time of discharge the patient's catheterization showed no acute change from prior study, patient was discharged with an increase of his Imdur, continuation of aspirin. Currently the patient's pain is 2 out of 10, he states it feels identical to previous cardiac episodes. He denies any tearing or ripping sensation. He has no other complaints at this time. He denies any vomiting, diarrhea, syncope, numbness tingling or weakness. No other complaints, no fever or chills. Related Data Home Medications Medication Instructions Recorded Confirmed aspirin [Aspirin Low-Strength] 81 mg PO DAILY tab-cap 03/27/13 07/11/19 lancets [One Touch Delica] #100 ea 03/26/14 07/05/19 blood-glucose meter [Onetouch #1 kit 01/22/16 07/05/19 Ultra2] blood-glucose meter [Onetouch #1 kit 05/29/16 07/05/19 Ultramini] albuterol sulfate [Proair Hfa] 2 puff INHALATION Q4H PRN #3 11/15/17 07/05/19 inhaler insulin regular hum U-500 conc 20 - 50 unit SUBCUT AC #6 pen 12/28/18 07/05/19 nitroglycerin 0.4 mg sublingual 0.4 mg SUBLINGUAL Q5-15M PRN #25 04/05/19 07/05/19 tablet tab-cap MDD 3 tabs blood sugar diagnostic #400 each 04/06/19 07/05/19 pen needle, diabetic 31 gauge x #100 ea 04/06/19 07/05/1909/15 gabapentin 100 mg capsule 100 mg PO BID #60 tab-cap 04/19/19 07/11/19 budesonide-formoterol HFA 160 2 puff INHALATION BID #1 inhaler 07/05/19 07/05/19 mcg-4.5 mcg/actuation aerosol inhaler empagliflozin 25 mg tablet 25 mg PO QAM #90 tab 07/05/19 07/05/19 famotidine 20 mg tablet 20 mg PO DAILY #90 tab 07/05/19 07/11/19 fluoxetine 20 mg tablet 20 mg PO DAILY #90 tab 07/05/19 07/11/19 isosorbide mononitrate 120 mg 120 mg PO DAILY 07/05/19 07/05/19 tablet,extended release 24 hr metformin 1,000 mg tablet 1,000 mg PO BID #180 tab-cap 07/05/19 07/11/19 metoprolol succinate 100 mg 150 mg PO DAILY #135 tab 07/05/19 07/05/19 tablet,extended release 24 hr pantoprazole 40 mg tablet,delayed 40 mg PO DAILY #90 tab-cap 07/05/19 07/11/19 release rosuvastatin 40 mg tablet 40 mg PO DAILY #90 tab-cap 07/05/19 07/05/19 tiotropium bromide 1.25 2 puff IH DAILY #4 gm 07/05/19 07/05/19 mcg/actuation mist for inhalation Previous Rx's Medication Instructions Recorded albuterol sulfate [Proair Hfa] 2 puff INHALATION Q4H PRN #3 11/15/17 inhaler insulin regular hum U-500 conc 20 - 50 unit SUBCUT AC #6 pen 12/28/18 nitroglycerin 0.4 mg sublingual 0.4 mg SUBLINGUAL Q5-15M PRN #25 04/05/19 tablet tab-cap MDD 3 tabs blood sugar diagnostic #400 each 04/06/19 pen needle, diabetic 31 gauge x #100 ea 04/06/19 5/16 gabapentin 100 mg capsule 100 mg PO BID #60 tab-cap 04/19/19 budesonide-formoterol HFA 160 2 puff INHALATION BID #1 inhaler 07/05/19 mcg-4.5 mcg/actuation aerosol inhaler empagliflozin 25 mg tablet 25 mg PO QAM #90 tab 07/05/19 famotidine 20 mg tablet 20 mg PO DAILY #90 tab 07/05/19 fluoxetine 20 mg tablet 20 mg PO DAILY #90 tab 07/05/19 metformin 1,000 mg tablet 1,000 mg PO BID #180 tab-cap 07/05/19 metoprolol succinate 100 mg 150 mg PO DAILY #135 tab 07/05/19 tablet,extended release 24 hr pantoprazole 40 mg tablet,delayed 40 mg PO DAILY #90 tab-cap 07/05/19 release rosuvastatin 40 mg tablet 40 mg PO DAILY #90 tab-cap 07/05/19 tiotropium bromide 1.25 2 puff IH DAILY #4 gm 07/05/19 mcg/actuation mist for inhalation Allergies Allergy/AdvReac Type Severity Reaction Status Date / Time No Known Allergies Allergy Unverified 07/11/19 12:12 General Stated Complaint: Chest Pain CAMERON: 2 Review of Systems All systems reviewed & are unremarkable except as noted in HPI and below PFSH Medical History (Updated 07/11/19 @ 17:07 by Christiano Elliott DO) COPD (chronic obstructive pulmonary disease) (Chronic) Coronary artery disease involving [employer] [place] [employer] [place] heart with angina pectoris (Acute 02/08/15) Diabetes mellitus (Chronic) better Surgical History Stent placement x 2 Social History Smoking/Tobacco Use Status: Former Tobacco Use Alcohol Intake: current Alcohol Intake frequency: holidays/special occasions only Drug use: Never Substance use type: does not use Do you feel safe at home: Yes Do you feel safe in your relationship?: Yes Exam Narrative Exam Narrative: 1.Const: Well-nourished, Well-developed, appearing stated age 2.Eyes: PERRL, no conjunctival injection, and symmetrical lids. 3.ENT: Atraumatic external nose and ears. Moist MM. Neck: Symmetric, trachea midline, No thyromegaly. 4.CVS: +S1/S2, No murmurs or gallops. Peripheral pulses 2+ and equal in all extremities. Brisk capillary refill in all extremities. Radial pulses +2 bilaterally. 5.RESP: Unlabored respiratory effort. Clear to auscultation bilaterally. No wheezes rales or rhonchi 6.GI: Soft, Nontender/Nondistended, No hepatosplenomegaly. No guarding or rebound. 7.MSK: Normocephalic/Atraumatic, Extremities w/o deformity or ttp No cyanosis or clubbing, Normal movement of all extremities, no pitting edema in the lower extremities. 8.Skin: Warm, Dry. No rashes or lesions. 9.Neuro: [employer] II-XII grossly intact. Sensation grossly intact, no focal neurologic deficits. 10.Psych: (AAO) x3. Appropriate mood and affect Course Vital Signs Vital signs: Vital Signs Temperature 36.5 C 07/11/19 12:03 Pulse 66 07/11/19 12:03 Respiratory Rate 18 07/11/19 12:03 Blood Pressure 110/79 07/11/19 12:03 Temperature 36.5 C 07/11/19 12:03 Temperature Source Temporal Artery Scan 07/11/19 12:03 Pulse 66 07/11/19 12:03 Respiratory Rate 18 07/11/19 12:03 Respiratory Effort Non-Labored 07/11/19 12:10 Blood Pressure 110/79 07/11/19 12:03 Blood Pressure Position Sitting 07/11/19 12:03 Oxygen Delivery Method Room Air 07/11/19 12:03 Oxygen Flow Rate 0 07/11/19 12:03 Pain Level 2 07/11/19 12:03
--- NOTE | 2019-07-11 12:18 | NUR.NOTE ---
Nursing Note: EMS en route initiated IV access, administered 324mg ASA PO, and two SL nitro tablets. Pt reports taking three nitro tablets at home prior to EMS arrival.
[2019-07-11 12:22] LABS: BE (Venous) 3.8 mmol/L (-3-3); HCO3 (Venous) 28 mmol/L (22-28); O2 Sat (Venous) 43 % (70-80); TCO2 (Venous) 26 mmol/L (22-29); pCO2 (Venous) 45 mm/Hg (34-47); pH (Venous) 7.41 (7.35-7.45); pO2 (Venous) 24 mm/Hg (28-44)
[2019-07-11 12:24] LABS: Abs Immature Grans 0.01 k/cumm (0.0-0.09); Absolute Basophil Count 0.05 k/cumm (0.0-0.2); Absolute Eosinophil Count 0.14 k/cumm (0.0-0.7); Absolute Lymphocyte Count 1.93 k/cumm (1.2-3.4); Absolute Neutrophil Count 3.44 k/cumm (1.2-6.7); Basophils % 0.8; Eosinophils % 2.2; HCT 37.6 % (40.0-50.0); Immature Grans % 0.2 %; Lymphocytes % 30.8; Mean Corp. HGB Concentration 31.9 g/dL (32.0-36.0); Mean Corpuscular Hemoglobin 26.7 pg (27.0-33.0); Mean Corpuscular Volume 83.6 fL (80-95); Mean Platelet Volume 11.3 fL (8.0-11.0); Monocytes % 11.2; Neutrophils % 54.8; Platelet Count 278 x1000/uL (130-400); RBC Distribution Width 14.2 % (11.8-14.1); White Blood Cell Count 6.27 k/cumm (4.4-10.8)
[2019-07-11 12:41] LABS: PTT Activated 22.4 sec (21.0-31.4); Prothrombin Time 9.9 sec (9.3-11.0)
[2019-07-11 12:49] LABS: ALT 28 U/L (16-63); AST 18 U/L (15-37); Albumin 3.3 g/dL (3.4-5.0); Alkaline Phosphatase 69 U/L (46-116); Anion Gap 8.7 mmol/L (3-11); BUN 15 mg/dL (7-18); Bilirubin, Total 0.5 mg/dL (0.2-1.0); CO2 28.3 mmol/L (21.0-32.0); CREATININE 1.38 mg/dL (0.70-1.30); Calcium 8.1 mg/dL (8.5-10.1); Chloride 102 mmol/L (98-107); Glucose 165 mg/dL (74-106); Lipase 154 U/L (73-393); NT-proBNP 158 pg/mL (<300); Sodium 139 mmol/L (136-145); Total Protein 6.7 g/dL (6.4-8.2)
[2019-07-11 12:51] LABS: Troponin I 0.09 ng/Ml (<0.06)
--- NOTE | 2019-07-11 13:17 | NUR.NOTE ---
Nursing Note: MD Elliott made aware of hypotension (89 systolic). PT denied symptoms such as dizziness or feeling light headed. Verbal orders recieved to initiate 1,000 ml NS IV bolus.
--- NOTE | 2019-07-11 14:42 | NUR.NOTE ---
Nursing Note: Heparin infusion currently running at 1000 units/HR (10ml/HR).
--- NOTE | 2019-07-11 15:17 | NUR.NOTE ---
Nursing Note: PT care report transferred to ICU at this time. At the time of transfer the PT is alert and oriented, vitals stable. Heparin infusion running at 100 units hour.
[2019-07-11 15:29] LABS: Troponin I 0.07 ng/Ml (<0.06)
--- NOTE | 2019-07-11 16:57 | W.PM.HP.N ---
Date of service: 07/11/19 Time of Service: 16:57 Assessment and Plan Assessment and plan (1) Non-ST elevated myocardial infarction (non-STEMI): Status: Acute Assessment and plan: Patient is currently pain-free will remain on heparin drip. He will remain on aspirin and Crestor. I put him on short acting Lopressor rather than giving him his Toprol-XL. He appears to be adequately beta blocked at present time with heart rates in the 50s and 60s. I did not start a nitroglycerin drip as he is currently pain-free. If he gets further chest pain we will continue monitoring EKGs and troponin levels as well as start him on nitro drip if he gets further pain. If he shows any ST elevation he will be emergently transferred to [facility]. Otherwise as long as he remained stable he will be transferred tomorrow. (2) Diabetes mellitus: Status: Chronic Assessment and plan: I am going to withhold his oral diabetic agents for the present time in anticipation of a cardiac catheterization. 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 His last echocardiogram performed at [facility] dated June 24, 2019 showed moderately dilated left ventricle with mildly reduced global left ventricular systolic function with an ejection fraction of 50%. No thrombus was seen. He has regional wall motion abnormalities. Right ventricular size was normal with normal global RV systolic function. He has mild to moderate aortic valve regurgitation mild mitral regurgitation with a mildly dilated aortic root. Compared to his prior echocardiogram dated 04/09/2016 global LV function has improved Present time patient does not appear to be in any acute CHF. proBNP is normal at 158. I will give the patient gentle IV fluid hydration overnight in preparation for repeat cardiac catheterization. History of Present Illness History of Present Illness Chief Complaint: Chest pain Narrative: 54-year-old male former smoker with history of hypertension, diabetes mellitus type 2 requiring insulin, coronary artery disease status post 3 previous coronary stents and subsequent two-vessel coronary artery bypass grafting in March 2014 who had a recent non-ST elevation myocardial infarction for which he was evaluated at [facility] couple weeks ago and had a cardiac catheterization and was discharged home without any further stents but was being medically managed by increasing his dose of his Imdur. 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 He was not lifting any heavy equipment or doing anything especially strenuous. There was no's associated neck or jaw or arm discomfort. He had a total of 3 sublingual nitroglycerin over the course of about 30 minutes and his chest discomfort subsided by the time he arrived in the emergency department. Work-up in the emergency department included EKG on admission demonstrated sinus rhythm with evidence of an old anteroseptal infarct and low voltage but no acute ST elevation. Initial labs showed a CBC that showed a mild anemia with a hemoglobin of 12 g no leukocytosis. CMP showed elevated creatinine 1.38 and glucose 165 otherwise normal electrolytes and his initial troponin I was 0.09 and has since dropped to 0.07. Chest x-ray showed no acute pulmonary findings. Treatment emergency department included initiation of a heparin drip. Dr. Christiano Elliott, emergency room physician evaluated the patient and spoke with the gusset edger on-call at [facility] about transferring the patient. They indicated that they would accept the patient but had no beds available at the present time. They specifically asked that the patient not be started on Plavix. They did agree with heparinization and aspirin. Patient is now admitted to the intensive care unit for treatment of a non-ST elevation myocardial infarction. He has remained pain-free since then Review of Systems All systems reviewed & are unremarkable except as noted in HPI and below PFSH Medical History COPD (chronic obstructive pulmonary disease) (Chronic) Coronary artery disease involving [place] heart with angina pectoris (Acute 02/08/15) Diabetes mellitus (Chronic) better Surgical History Stent placement x 2 Social History Smoking/Tobacco Use Status: Former Tobacco Use Alcohol Intake: current Alcohol Intake frequency: holidays/special occasions only Drug use: Never Substance use type: does not use Do you feel safe at home: Yes Do you feel safe in your relationship?: Yes Meds Home Medications and Allergies Home Medications Medication Instructions Recorded Confirmed Type aspirin [Aspirin Low-Strength] 81 mg PO DAILY tab-cap 03/27/13 07/11/19 History lancets [One Touch Delica] #100 ea 03/26/14 07/05/19 History blood-glucose meter [Onetouch #1 kit 01/22/16 07/05/19 History Ultra2] blood-glucose meter [Onetouch #1 kit 05/29/16 07/05/19 History Ultramini] albuterol sulfate [Proair Hfa] 2 puff INHALATION Q4H PRN #3 11/15/17 07/05/19 Rx inhaler insulin regular hum U-500 conc 20 - 50 unit SUBCUT AC #6 pen 12/28/18 07/05/19 Rx nitroglycerin 0.4 mg sublingual 0.4 mg SUBLINGUAL Q5-15M PRN #25 04/05/19 07/05/19 Rx tablet tab-cap MDD 3 tabs blood sugar diagnostic #400 each 04/06/19 07/05/19 Rx pen needle, diabetic 31 gauge x #100 ea 04/06/19 07/05/19 Rx 5/16 gabapentin 100 mg capsule 100 mg PO BID #60 tab-cap 04/19/19 07/11/19 Rx budesonide-formoterol HFA 160 2 puff INHALATION BID #1 inhaler 07/05/19 07/05/19 Rx mcg-4.5 mcg/actuation aerosol inhaler empagliflozin 25 mg tablet 25 mg PO QAM #90 tab 07/05/19 07/05/19 Rx famotidine 20 mg tablet 20 mg PO DAILY #90 tab 07/05/19 07/11/19 Rx fluoxetine 20 mg tablet 20 mg PO DAILY #90 tab 07/05/19 07/11/19 Rx isosorbide mononitrate 120 mg 120 mg PO DAILY 07/05/19 07/05/19 History tablet,extended release 24 hr metformin 1,000 mg tablet 1,000 mg PO BID #180 tab-cap 07/05/19 07/11/19 Rx metoprolol succinate 100 mg 150 mg PO DAILY #135 tab 07/05/19 07/05/19 Rx tablet,extended release 24 hr pantoprazole 40 mg tablet,delayed 40 mg PO DAILY #90 tab-cap 07/05/19 07/11/19 Rx release rosuvastatin 40 mg tablet 40 mg PO DAILY #90 tab-cap 07/05/19 07/05/19 Rx tiotropium bromide 1.25 2 puff IH DAILY #4 gm 07/05/19 07/05/19 Rx mcg/actuation mist for inhalation Allergies Allergy/AdvReac Type Severity Reaction Status Date / Time No Known Allergies Allergy Unverified 07/11/19 12:12 Exam Narrative Exam Narrative: Morbidly obese male in no acute distress lying in bed in semi-mora position sitting up talking with his . HEENT unremarkable. Neck supple without JVD normal carotid pulses no bruits no thyromegaly no cervical lymphadenopathy. Lungs are clear to auscultation. Heart is regular rate and rhythm without gallop murmur or rub. Chest wall is nontender. He has a palpable AICD device in the left infraclavicular space. Skin is not indurated and there is no erythema. Abdomen is obese soft and nontender normal active bowel sounds. No bruits. Extremities without peripheral cyanosis or edema. Pedal pulses are normal. Neurologic exam is grossly intact.. Results Labs Result diagrams: 07/11/19 12:10 07/11/19 12:10 Labs: Laboratory Results - last 24 hr 07/11/19 07/11/19 07/11/19 12:10 12:10 12:10 WBC 6.27 RBC 4.50 Hgb 12.0 L Hct 37.6 L MCV 83.6 MCH 26.7 L MCHC 31.9 L RDW 14.2 H Plt Count 278 MPV 11.3 H Immature Gran % 0.2 Neutrophils % 54.8 Lymphocytes % 30.8 Monocytes % 11.2 Eosinophils % 2.2 Basophils % 0.8 Absolute Neutrophils 3.44 Absolute Lymphocytes 1.93 Absolute Monocytes 0.70 Absolute Eosinophils 0.14 Absolute Basophils 0.05 PT INR APTT VBG pH 7.41 VBG pCO2 45 VBG pO2 24 L VBG HCO3 28 VBG Total CO2 26 VBG O2 Saturation 43 L VBG Base Excess 3.8 H Sodium 139 Potassium 4.0 Chloride 102 Carbon Dioxide 28.3 Anion Gap 8.7 BUN 15 Creatinine 1.38 H Estimated GFR/1.73 m2 53.90 Glucose 165 H Calcium 8.1 L Total Bilirubin 0.5 AST 18 ALT 28 Alkaline Phosphatase 69 Troponin I 0.09 H* NT-Pro-B Natriuret Pep 158 Total Protein 6.7 Albumin 3.3 L Lipase 154 07/11/19 07/11/19 12:10 14:59 WBC RBC Hgb Hct MCV MCH MCHC RDW Plt Count MPV Immature Gran % Neutrophils % Lymphocytes % Monocytes % Eosinophils % Basophils % Absolute Neutrophils Absolute Lymphocytes Absolute Monocytes Absolute Eosinophils Absolute Basophils PT 9.9 INR 1.0 APTT 22.4 VBG pH VBG pCO2 VBG pO2 VBG HCO3 VBG Total CO2 VBG O2 Saturation VBG Base Excess Sodium Potassium Chloride Carbon Dioxide Anion Gap BUN Creatinine Estimated GFR/1.73 m2 Glucose Calcium Total Bilirubin AST ALT Alkaline Phosphatase Troponin I 0.07 NT-Pro-B Natriuret Pep Total Protein Albumin Lipase Last Vital Signs Temp 36.6 C 07/11/19 15:55 Pulse 70 07/11/19 16:31 Resp 16 07/11/19 16:31 BP 118/86 07/11/19 16:31 Pulse Ox 98 07/11/19 16:31
[2019-07-11] MEDS: Famotidine 20 MG TAB PO (17:47)
[2019-07-11] MEDS: Normal Saline 1,000 ML 75 ML IV (17:50)
[2019-07-11 17:59] LABS: Troponin I 0.07 ng/Ml (<0.06)
[2019-07-11] MEDS: Insulin Aspart 300 UNITS/3 ML PEN SC (18:19)
[2019-07-11] MEDS: Metoprolol 12.5 MG TAB 37.5 MG PO (18:19)
[2019-07-11] MEDS: Gabapentin 100 MG CAP PO (19:33)
[2019-07-11] MEDS: Budesonide/Formoterol 160/4.5 6 GM 60 PUFF INH IH (19:34)
--- NOTE | 2019-07-11 21:12 | W.PM.DS.N ---
Date of service: 07/11/19 Time of Service: 21:12 DS: Diagnosis Discharge Diagnosis (1) Non-ST elevated myocardial infarction (non-STEMI): Start date: 07/11/19 Status: Acute Asessment and Plan: Patient was pain-free on heparin infusion after nitroglycerin sublingually given in the field and in the hospital. Patient was not loaded with Plavix and will continue aspirin and Crestor and transfer to [facility] for reevaluation and cardiac catheterization having failed medical management of his CAD. His troponins were trending down. (2) Diabetes mellitus: Status: Chronic Asessment and Plan: Continue holding metformin with insulin coverage pending cardiac catheterization. (3) Ischemic cardiomyopathy: Status: Chronic Asessment and Plan: Slight improvement in global LV function with recent echocardiogram. Patient will be followed up at [facility] with cardiology. Revascularization would likely continue to improve function but prognosis is poor with patient having repeated interventions and exacerbation of his CAD. Discharge Plan Disposition Patient Disposition: [facility] Condition: Stable Discharge Details Chief Complaint: Chest Pain Clinical Impression: Non-ST elevated myocardial infarction (non-STEMI), Chest pain Reason For Visit: Non-STEMI Admit Date/Time: 07/11/19 14:02 Admit Provider: Caleb Maldonado Attending Provider: Caleb Maldonado Primary Care Provider: Jos Nance ED Provider: Christiano Elliott Hospital Course Hospital Course: This is a 54-year-old gentleman with significant CAD having failed medical therapy for his disease process. He recently had a hospitalization and transferred to [facility] for non-STEMI with cardiac catheterization resulting in no interventions. He was readmitted this admission for non-STEMI with troponins trending down and is being transferred for reevaluation for intervention. He is medically stable on heparin infusion with aspirin and statin. See H&P for details on admission prior to transfer same day. Home Meds and New Rx's Prescriptions: No Action Humulin R U-500 (Conc) Kwikpen 500 unit/mL (3 mL) insulin pen 20 - 50 unit subcut AC Qty: 6 RF: 3 nitroglycerin [Nitrostat] 0.4 mg tablet, sublingual 0.4 mg Sublingual Q5-15M MDD 3 tabs PRN (Reason: chest pain) Qty: 25 RF: 0 (DME) pen needle, diabetic [Pen Needle] 31 gauge x 5/16 needle 1 ea Miscellaneous TID Qty: 100 RF: 11 (DME) OneTouch Ultra Blue Test Strip Strip See Dose Instructions .ROUTE .MEDSUPPLY Qty: 400 RF: 3 isosorbide mononitrate 120 mg tablet extended release 24 hr 120 mg PO DAILY RF: 0 budesonide-formoterol [Symbicort] 160-4.5 mcg/actuation HFA aerosol inhaler 2 puff Inhalation BID Qty: 1 RF: 3 Jardiance 25 mg tablet 25 mg PO QAM Qty: 90 RF: 3 fluoxetine 20 mg tablet 20 mg PO DAILY Qty: 90 RF: 3 metformin [Glucophage] 1,000 mg tablet 1,000 mg PO BID Qty: 180 RF: 4 metoprolol succinate 100 mg tablet extended release 24 hr 150 mg PO DAILY Qty: 135 RF: 3 pantoprazole 40 mg tablet,delayed release (DR/EC) 40 mg PO DAILY Qty: 90 RF: 4 rosuvastatin [Crestor] 40 mg tablet 40 mg PO DAILY Qty: 90 RF: 4 famotidine [Pepcid] 20 mg tablet 20 mg PO DAILY Qty: 90 RF: 3 Spiriva Respimat 1.25 mcg/actuation mist 2 puff IH DAILY Qty: 4 RF: 11 aspirin [Aspirin Low-Strength] 81 MG tablet,chewable 81 mg PO DAILY RF: 0 (DME) lancets [OneTouch Delica Lancets] 1 EACH misc 1 ea Miscellaneous TID Qty: 100 RF: 5 (DME) blood-glucose meter [OneTouch Ultra2 Meter] 1 EACH kit 1 ea Miscellaneous DAILY Qty: 1 RF: 0 (DME) blood-glucose meter [OneTouch UltraMini] 1 EACH kit 1 ea Miscellaneous QID Qty: 1 RF: 0 albuterol sulfate [ProAir HFA] 8.5 GM HFA aerosol inhaler 2 puff Inhalation Q4H PRN Qty: 3 RF: 4 gabapentin 100 mg capsule 100 mg PO BID Qty: 60 RF: 5 clopidogrel 75 mg Tablet 75 mg PO DAILY RF: 0 Discharge Instructions Activity:: Ambulance transfer Diet:: Ambulance transfer Discharge Orders Discharge Orders: Discharge Order (Routine); Ordered 07/11/19 Ordered By: Steve Sequeira Discharge Data Discharge Date/Time-TO BE ENTERED AT DEPARTURE: 07/11/19 21:49 DS: Summary Status at Discharge Functional status at discharge: independent ambulation Overall status at discharge: patient is progressing back to baseline Mental Status: mental status grossly normal Speech and Movement: speech and movement normal Mood: congruent mood Affect: normal affect Time Spent with Patient providing and/or coordinating discharge services: Greater than 30 minutes Specific discharge activities: Reviewing H&P and data with transfer orders reviewed and signed and patient examined and interviewed. Communication with accepting finger grip machine operator at institution previously performed by admitting physician. Quality: AMI Clinical Trial Participant: No Quality: VTE Deep Vein Thrombosis/Pulmonary Embolism Present on Admission: No Exam Narrative Exam Narrative: General: Obese gentleman who appears older than stated age in no acute distress. He is alert and oriented x3. HEENT: Normocephalic, eyes with pupils equal and reactive to light symmetrically, extra ocular movement intact and sclera anicteric. Oropharynx with moist mucosa and poor dentition. Neck: Supple without JVD. Lungs: Fair aeration and clear to auscultation percussion. Chest: Palpable subcutaneous AICD left upper chest. Heart: 2/6 to 3/6 holosystolic murmur left sternal border with variability with inspiration. Regular rhythm and rate. No gallops. Abdomen: Obese, soft and nontender to palpation with no palpable hepatosplenomegaly. Genitalia/rectal: Exam deferred. Extremities: Without pitting edema, cyanosis or clubbing. Peripheral pulses are intact. Cap refill fair. Skin: Pale, warm and dry. Actinic changes over sun exposed areas. Neuro: Cranial nerves II through XII grossly intact, motor and sensory grossly intact. Psych: Poor insight into disease processes, normal mood and affect with good eye contact and normal variation of affect. No abnormal thought processes. Psych Mental Status: mental status grossly normal Speech and Movement: speech and movement normal Mood: congruent mood Affect: normal affect DS: Data Vitals/I&O Vitals and I&O: Vital Signs Temperature 36.6 C 07/11/19 15:55 Temperature Source Temporal Artery Scan 07/11/19 15:55 Pulse 64 07/11/19 19:31 Pulse 66 07/11/19 19:31 Respiratory Rate 20 07/11/19 19:31 Respiratory Effort 07/11/19 15:55 Respiratory Depth Normal 07/11/19 15:55 Respiratory Pattern Normal 07/11/19 15:55 Blood Pressure 102/51 L 07/11/19 19:31 Blood Pressure Mean 63 07/11/19 19:31 Blood Pressure Position Supine 07/11/19 15:55 Pulse Oximetry 95 07/11/19 19:31 Oxygen Delivery Method Room Air 07/11/19 15:55 Oxygen Flow Rate 0 07/11/19 15:55 Pain Level 0 07/11/19 15:55 Intake & Output 07/10/19 07/11/19 07/11/19 23:59 11:59 23:59 Intake Total 82 / 82 Output Total 1400 / 1400 Balance -1318 / -1318 Weight 111 kg Intake: IV 82 Output: Urine 1400 / 1400 Other: Urine Color Yellow Urine Appearance Clear Voiding Methods Urinal Data Completed and Pending Labs on day of discharge: Labs from last 24 hours 07/11/19 07/11/19 07/11/19 20:00 20:00 17:10 WBC RBC Hgb Hct MCV MCH MCHC RDW Plt Count MPV Immature Gran % Neutrophils % Lymphocytes % Monocytes % Eosinophils % Basophils % Absolute Neutrophils Absolute Lymphocytes Absolute Monocytes Absolute Eosinophils Absolute Basophils PT INR APTT 41.0 H D VBG pH VBG pCO2 VBG pO2 VBG HCO3 VBG Total CO2 VBG O2 Saturation VBG Base Excess Sodium Potassium Chloride Carbon Dioxide Anion Gap BUN Creatinine Estimated GFR/1.73 m2 Glucose Calcium Total Bilirubin AST ALT Alkaline Phosphatase Troponin I Pending 0.07 NT-Pro-B Natriuret Pep Total Protein Albumin Lipase 07/11/19 07/11/19 07/11/19 14:59 12:10 12:10 WBC 6.27 RBC 4.50 Hgb 12.0 L Hct 37.6 L MCV 83.6 MCH 26.7 L MCHC 31.9 L RDW 14.2 H Plt Count 278 MPV 11.3 H Immature Gran % 0.2 Neutrophils % 54.8 Lymphocytes % 30.8 Monocytes % 11.2 Eosinophils % 2.2 Basophils % 0.8 Absolute Neutrophils 3.44 Absolute Lymphocytes 1.93 Absolute Monocytes 0.70 Absolute Eosinophils 0.14 Absolute Basophils 0.05 PT 9.9 INR 1.0 APTT 22.4 VBG pH VBG pCO2 VBG pO2 VBG HCO3 VBG Total CO2 VBG O2 Saturation VBG Base Excess Sodium Potassium Chloride Carbon Dioxide Anion Gap BUN Creatinine Estimated GFR/1.73 m2 Glucose Calcium Total Bilirubin AST ALT Alkaline Phosphatase Troponin I 0.07 NT-Pro-B Natriuret Pep Total Protein Albumin Lipase 07/11/19 07/11/19 12:10 12:10 WBC RBC Hgb Hct MCV MCH MCHC RDW Plt Count MPV Immature Gran % Neutrophils % Lymphocytes % Monocytes % Eosinophils % Basophils % Absolute Neutrophils Absolute Lymphocytes Absolute Monocytes Absolute Eosinophils Absolute Basophils PT INR APTT VBG pH 7.41 VBG pCO2 45 VBG pO2 24 L VBG HCO3 28 VBG Total CO2 26 VBG O2 Saturation 43 L VBG Base Excess 3.8 H Sodium 139 Potassium 4.0 Chloride 102 Carbon Dioxide 28.3 Anion Gap 8.7 BUN 15 Creatinine 1.38 H Estimated GFR/1.73 m2 53.90 Glucose 165 H Calcium 8.1 L Total Bilirubin 0.5 AST 18 ALT 28 Alkaline Phosphatase 69 Troponin I 0.09 H* NT-Pro-B Natriuret Pep 158 Total Protein 6.7 Albumin 3.3 L Lipase 154 Imaging Chest x-ray: Radiologist's impression: a RAD:XR portable chest AP EXAM: XR PORTABLE CHEST AP CLINICAL HISTORY: chest pain TECHNIQUE: 2D digital imaging was performed. COMPARISON: XR PORTABLE CHEST AP from 06/23/2019 FINDINGS: MEDIASTINUM: Normal. HEART: Normal. PULMONARY VASCULATURE: Normal. LUNGS: Clear. PLEURAL SPACE: No pleural effusion or pneumothorax. BONE:Degenerative changes are seen in the spine. OTHER FINDINGS:Pacing wires stable in position. Sternal wires are in place. Clips are again seen in the mediastinum. IMPRESSION: No acute pulmonary findings. PFSH Medical History COPD (chronic obstructive pulmonary disease) (Chronic) Coronary artery disease involving [place] heart with angina pectoris (Acute 02/08/15) Diabetes mellitus (Chronic) better Ischemic cardiomyopathy (Acute) Surgical History Stent placement x 2 Social History Smoking/Tobacco Use Status: Former Tobacco Use Alcohol Intake: current Alcohol Intake frequency: holidays/special occasions only Drug use: Never Substance use type: does not use Do you feel safe at home: Yes Do you feel safe in your relationship?: Yes
[2019-07-11] MEDS: Normal Saline Flush 10 ML SYR IVP ×2 (21:26→21:37)
== END 2019-07-11 21:49 | disposition short-term general hospital (02) | DRG 282 ==
LOC: ER 14:40 → ICU 15:23
PROVIDERS: Admitting Provider Internal Medicine; Emergency Provider Student in an Organized Health Care Education/Training Program; PCP Family Medicine; Visit Provider Internal Medicine
DX: I22.2 Subsequent non-ST elevation (NSTEMI) myocardial infarction (principal); I21.4 Non-ST elevation (NSTEMI) myocardial infarction; Z79.4 Long term (current) use of insulin; E11.29 Type 2 diabetes mellitus with other diabetic kidney complication; R80.9 Proteinuria, unspecified; I25.5 Ischemic cardiomyopathy; I25.119 Atherosclerotic heart disease of native coronary artery with unspecified angina pectoris; Z95.810 Presence of automatic (implantable) cardiac defibrillator; I10 Essential (primary) hypertension; Z95.5 Presence of coronary angioplasty implant and graft; Z95.1 Presence of aortocoronary bypass graft; D64.9 Anemia, unspecified; I25.2 Old myocardial infarction; J44.9 Chronic obstructive pulmonary disease, unspecified; E66.01 Morbid (severe) obesity due to excess calories
CPT/HCPCS: 36415; 80053; 82805; 83690; 93005; 96365; 96366; 96376; 99223; 99239; 99291; 71045; 83880; 84484; 85025; 85610; 85730; 93010; J3490

== ENCOUNTER 2020-02-21 15:41 | Outpatient (CLI) | payer MEDICAID, SELFPAY | END 2020-02-21 16:01 | PROVIDERS: PCP Family Medicine; Visit Provider Internal Medicine Cardiovascular Disease | DX: I25.5 Ischemic cardiomyopathy (principal); R07.89 Other chest pain; R42 Dizziness and giddiness | CPT/HCPCS: 93225 ==

== ENCOUNTER 2020-02-26 10:35 | Outpatient (CLI) | payer MEDICAID, SELFPAY ==
--- NOTE | 2020-02-26 12:40 | W.HOLTRPT ---
Date of service: 02/26/20 Time of Service: 12:41 Holter Monitor Report Referring Provider:: Alberto Raymond MD Indications:: Ischemic cardiomyopathy Holter Monitor Note: This is a 48-hour Holter monitor. Predominant rhythm was sinus. Average heart rate was 66, minimum 55 and maximum 95 There were rare atrial and ventricular ectopic beats There was no ventricular tachycardia There was 1 atrial run that lasted approximately 20 beats in duration, rate 130 There was no atrial fibrillation There were no pauses greater than 3 seconds. There was no high-grade AV block Patient reported symptoms did not correspond to any dysrhythmia
== END 2020-02-26 10:55 ==
PROVIDERS: PCP Family Medicine; Visit Provider Internal Medicine Cardiovascular Disease
DX: I25.5 Ischemic cardiomyopathy (principal); I49.1 Atrial premature depolarization; I49.3 Ventricular premature depolarization
CPT/HCPCS: 93226

== ENCOUNTER 2020-09-03 13:51 | Outpatient (CLI) | payer MEDICAID, SELFPAY ==
--- NOTE | 2020-09-03 09:00 | RT.EKG_ITS ---
APPROVED REPORT Exam: Resting ECG Patient Location: O HR:62 bpm ECG Measurements Heart Rate 62 AXIS NC 151 P 42 QRSd 84 QRS 57 QT 389 T 96 QTc 396 Conclusion Sinus rhythm...normal P axis, V-rate 60- 99 Poor R wave progression
== END 2020-09-03 13:52 | disposition home or self-care (01) ==
LOC: RT 09-04 13:51
PROVIDERS: PCP Family Medicine; Visit Provider Nurse Practitioner
DX: R94.31 Abnormal electrocardiogram [ECG] [EKG] (principal); I25.2 Old myocardial infarction; Z95.5 Presence of coronary angioplasty implant and graft
CPT/HCPCS: 93005; 93010

== ENCOUNTER 2020-10-31 13:04 | Inpatient (IN) | payer MEDICAID, SELFPAY ==
[2020-10-31] VITALS (49 sets, daily range): BP systolic 98–123; BP diastolic 54–80; PULSE 53–73; RESP 10–22; TEMP 36.5–36.7; O2SAT 95–99
--- NOTE | 2020-10-31 13:06 | ED.GENADUL_ITS ---
Discharge Plan Disposition Patient Disposition: [facility] INPATIENT Condition: Stable Discharge Details Clinical Impression: Rectal bleeding Admit Date/Time: 10/31/20 15:39 Admit Provider: Zohra Zuleta Attending Provider: Zohra Zuleta Primary Care Provider: Jos Nance. ED Provider: Lida Briscoe Medical Decision Making 55-year-old male with a history of ischemic cardiomyopathy, NSTEMI, diabetes, COPD presents for rectal bleeding that started after a bowel movement approximately 10 minutes ago. States he thinks it is a bleeding hemorrhoid. Patient does not know his medications. Review of recent medication note that he is on 81 mg aspirin but he is unsure if he is taking any other anticoagulation. He denies any known injury or foreign body. He is hemodynamically stable. He appears comfortable and nontoxic. No obvious external hemorrhoids noted. There appears to be a potential external fissure versus laceration on gross examination. With holding pressure, bleeding seems to be controlled, but with removal of gauze there appears to be continual oozing of blood. Case discussed with Dr. Zuleta who evaluated patient with scope at bedside and there appears to be significant oozing of bright red blood. Recommend obtaining screening labs and consider admission. Hemoglobin 10. Normal coags. Patient has remained hemodynamically stable. He has not gotten up from the stretcher and denies any acute complaints. Discussed with Dr. Zuleta and she would recommend admission overnight for continued observation and likely plan for scope. Patient states he has an appointment with cardiology scheduled tomorrow morning at [facility] which has been a long time coming and does not want to reschedule this. He states it has been for his chronic chest pain. He currently denies any chest pain. Patient is stating he wants to leave the hospital. Risks of and disability including continued or worsening bleeding explained and patient understands but still like to leave. Dr. Zuleta discussed with over the phone in the room and then discussed with [facility] who told that he could and recommended that patient stay for admission and now they are agreeable. Considering patient's history of cardiac disease and coronary stents, call was placed to [facility] transfer center whether patient could be transferred there but there are no beds available. Dr. Kearney agrees to keep patient here if unable to transfer to [facility]. Will discuss with [facility] cardiology if they have any recommendations as patient is on aspirin and plavix. Discussed with [facility] cardiology who noted that patient had a cath in March 2020 with balloon and recommended continued medical management. They had advised that he continue Plavix for 6 months which would mean he should have stopped last month. Cardiology does not see any contraindications for scope as he demonstrates no signs of heart failure and has no complaint of chest pain. Plan is for Dr. Raymond to call patient here in the hospital tomorrow morning at 9 AM for a telephone encounter. They recommend that we can stop Plavix at this time. stated that patient had been continued on the Plavix due to his continued chest pain. Dr. Zuleta was informed of recommendations. She will keep patient here with plan for scope likely in the a.m. Patient and agreeable with plan. Dr. Zuleta requested a CT abdomen and pelvis with IV and oral contrast. Medical Records Medical records reviewed: Yes I reviewed the patient's medical records. Lab Data Lab results reviewed: Yes I reviewed the patient's lab results. Labs: Laboratory Tests Range/Units 10/31/20 10/31/20 10/31/20 13:55 13:55 13:55 WBC (4.4-10.8) 10^3/uL 5.76 RBC (4.36-5.78) 10^6/uL 4.73 Hgb (13.5-17.5) g/dL 10.9 L Hct (40.0-50.0) % 35.1 L MCV (80-95) fL 74.2 L MCH (27.0-33.0) pg 23.0 L MCHC (32.0-36.0) % 31.1 L RDW (11.8-14.1) % 16.8 H Plt Count (130-400) 10^3/uL 272 MPV (8.0-11.0) fL 11.9 H Immature Gran % 0.3 Neutrophils % 58.4 Lymphocytes % 28.1 Monocytes % 10.8 Eosinophils % 1.7 Basophils % 0.7 Nucleated RBC % % 0 Absolute Neutrophils (1.2-6.7) 10^3/uL 3.36 Absolute Lymphocytes (1.2-3.4) 10^3/uL 1.62 Absolute Monocytes (0.1-0.8) 10^3/uL 0.62 Absolute Eosinophils (0.0-0.7) 10^3/uL 0.10 Absolute Basophils (0.0-0.2) 10^3/uL 0.04 RBC Morphology See Below Polychromasia Present Hypochromasia 1+ Poikilocytosis 1+ Anisocytosis 1+ Microcytosis 2+ PT (9.3-11.0) sec 9.8 INR (0.9-1.1) 1.0 APTT (21.0-27.5) sec 21.6 Sodium (136-145) mmol/L 140 Potassium (3.5-5.1) mmol/L 4.0 Chloride (98-107) mmol/L 105 Carbon Dioxide (21.0-32.0) mmol/L 25.5 Anion Gap (3-11) mmol/L 9.5 BUN (7-18) mg/dL 19 H Creatinine (0.70-1.30) mg/dL 1.5 H Estimated GFR/1.73 m2 (mL/min/1.73m2) 48.77 Glucose (74-106) mg/dL 230 H Calcium (8.5-10.1) mg/dL 8.9 Total Bilirubin (0.2-1.0) mg/dL 0.4 AST (15-37) U/L 12 L ALT (16-63) U/L 21 Alkaline Phosphatase (46-116) U/L 73 Total Protein (6.4-8.2) g/dL 6.9 Albumin (3.4-5.0) g/dL 3.5 HPI General Mode of arrival: ambulatory . Date/Time Provider Initiated Documentation: 10/31/20 13:06 . Limitations to Documentation: no limitations . Information obtained by: patient . HPI Narrative: Patient is a 55-year-old male with a history of coronary artery disease, NSTEMI, coronary stents, diabetes, hypertension, hyperlipidemia presents for concern for a bleeding hemorrhoid that started 10 minutes prior to arrival. Patient states he had a bowel movement at work and afterwards noted continued bleeding in his underwear. He states the bleeding eventually soaked through his shorts. He denies any fever, nausea, vomiting, abdominal pain or rectal pain. He denies any injury to his rectum or foreign body placement. Related Data Home Medications Medication Instructions Recorded Confirmed aspirin [Aspirin Low-Strength] 81 mg PO DAILY tab-cap 11/25/13 07/01/21 lancets [One Touch Delica] #100 ea 03/26/14 03/12/20 blood-glucose meter [Onetouch #1 kit 01/22/16 03/12/20 Ultra2] blood-glucose meter [Onetouch #1 kit 05/29/16 03/12/20 Ultramini] budesonide-formoterol HFA 160 2 puff INHALATION BID #1 inhaler 07/05/19 10/31/20 mcg-4.5 mcg/actuation aerosol inhaler albuterol sulfate 90 mcg/actuation 2 puff INHALATION Q4H PRN #3 07/14/19 10/31/20 aerosol inhaler inhaler amlodipine 2.5 mg tablet 2.5 mg PO DAILY 07/14/19 10/31/20 nitroglycerin 0.4 mg sublingual 0.4 mg SUBLINGUAL Q5-15M PRN #25 12/15/19 10/31/20 tablet tab-cap MDD 3 tabs ranolazine 500 mg tablet,extended 500 mg PO BID #60 tab 12/15/19 10/31/20 release,12 hr pen needle, diabetic 31 gauge x #100 ea 04/29/2009/15 isosorbide mononitrate 120 mg 240 mg PO DAILY #180 tab 05/13/20 10/31/20 tablet,extended release 24 hr blood sugar diagnostic #400 each 07/29/20 fluoxetine 20 mg capsule 20 mg PO DAILY #90 cap 07/30/20 10/31/20 gabapentin 100 mg capsule 100 mg PO BID #180 tab-cap 09/10/20 10/31/20 metformin 1,000 mg tablet 1,000 mg PO BID #180 tab-cap 09/10/20 10/31/20 metoprolol succinate 100 mg 150 mg PO DAILY #135 tab 09/10/20 10/31/20 tablet,extended release 24 hr pantoprazole 40 mg tablet,delayed 40 mg PO DAILY #90 tab-cap 09/10/20 10/31/20 release rosuvastatin 40 mg tablet 40 mg PO DAILY #90 tab-cap 09/10/20 10/31/20 tiotropium bromide 1.25 2 puff IH DAILY #12 g 09/10/20 10/31/20 mcg/actuation mist for inhalation empagliflozin [Jardiance] 25 mg PO DAILY 10/31/20 10/31/20 famotidine 20 mg PO HS 10/31/20 10/31/20 insulin regular hum U-500 conc 500 unit SUBCUT TID 10/31/20 10/31/20 [Humulin R U-500 (Conc) Analisapen] ranolazine 500 mg PO BID 10/31/20 10/31/20 Previous Rx's Medication Instructions Recorded budesonide-formoterol HFA 160 2 puff INHALATION BID #1 inhaler 07/05/19 mcg-4.5 mcg/actuation aerosol inhaler albuterol sulfate 90 mcg/actuation 2 puff INHALATION Q4H PRN #3 07/14/19 aerosol inhaler inhaler nitroglycerin 0.4 mg sublingual 0.4 mg SUBLINGUAL Q5-15M PRN #25 12/15/19 tablet tab-cap MDD 3 tabs ranolazine 500 mg tablet,extended 500 mg PO BID #60 tab 12/15/19 release,12 hr pen needle, diabetic 31 gauge x #100 ea 04/29/20 5/16 isosorbide mononitrate 120 mg 240 mg PO DAILY #180 tab 05/13/20 tablet,extended release 24 hr blood sugar diagnostic #400 each 07/29/20 fluoxetine 20 mg capsule 20 mg PO DAILY #90 cap 07/30/20 gabapentin 100 mg capsule 100 mg PO BID #180 tab-cap 09/10/20 metformin 1,000 mg tablet 1,000 mg PO BID #180 tab-cap 09/10/20 metoprolol succinate 100 mg 150 mg PO DAILY #135 tab 09/10/20 tablet,extended release 24 hr pantoprazole 40 mg tablet,delayed 40 mg PO DAILY #90 tab-cap 09/10/20 release rosuvastatin 40 mg tablet 40 mg PO DAILY #90 tab-cap 09/10/20 tiotropium bromide 1.25 2 puff IH DAILY #12 g 09/10/20 mcg/actuation mist for inhalation Allergies Allergy/AdvReac Type Severity Reaction Status Date / Time No Known Allergies Allergy Verified 10/31/20 13:10 General [place]ER[place]: 2 Review of Systems All systems reviewed & are unremarkable except as noted in HPI and below Constitutional Constitutional: Reports as per HPI, Denies chills and Denies fever(s) Eyes Eyes: Denies blurry vision ENT Ears, Nose, Mouth, and Throat: Denies dizziness, Denies sore throat and Denies throat swelling Cardiovascular Cardiovascular: Denies chest pain and Denies dyspnea Respiratory Respiratory: Denies cough and Denies dyspnea Gastrointestinal Gastrointestinal: Denies abdominal pain, Denies diarrhea, Denies vomiting and Reports other (Rectal bleeding) Genitourinary Genitourinary: Denies hematuria and Denies dysuria Musculoskeletal Musculoskeletal: Denies back pain and Denies numbness Integumentary/Breasts Skin/Breast: Denies lesions and Denies rash Neurologic Neurologic: Denies dizziness, Denies localized weakness and Denies numbness Allergic/Immunologic Allergic/Immunologic: Denies throat swelling [facility] Medical History (Updated 10/31/20 @ 16:06 by Lida Briscoe DO) COPD (chronic obstructive pulmonary disease) Coronary artery disease involving [place] heart with angina pectoris (02/08/15) Diabetes mellitus better Ischemic cardiomyopathy Surgical History Stent placement x 2 Social History Smoking/Tobacco Use Status: Former Tobacco Use Smoking risk assessment performed?: Yes Alcohol Intake: current Alcohol Intake frequency: holidays/special occasions o nly Drug use: Never Substance use type: does not use Do you feel safe at home: Yes Do you feel safe in your relationship?: Yes Exam Const General: cooperative and no acute distress HENMT Head: normal to inspection Face and sinus: normal facial exam Eyes General: appearance normal, both eyes and all related structures EOM: EOM intact bilaterally Neck Neck: normal visual inspection and No submandibular swelling Lymphatic: no lymphadenopathy noted Chest Chest: normal inspection of the chest and no tenderness Resp Effort & Inspection: normal respiratory effort and able to speak in complete sentences Auscultation: clear to auscultation bilaterally Cardio Rate: regular rate Rhythm: regular rhythm GI Inspection: normal to inspection Palpation: soft, not firm, not rigid and nontender Auscultation: normal bowel sounds Rectal Exam: No hemorrhoids and visual inspection abnormal laceration (questionable 3mm x 1cm laceration noted at anus. Oozing blood. ) Skin General skin exam: no rashes or lesions noted Neuro General: patient alert, patient awake and patient oriented x3 Cognition: normal cognition Speech: speech normal Motor: muscle tone normal throughout Sensory Exam: no sensory deficits noted Extrem General: normal to inspection, full ROM, capillary refill normal, no calf tenderness bilaterally and no edema Psych Appearance: grossly normal Mental Status: mental status grossly normal Speech and Movement: speech and movement normal Affect: normal affect
[2020-10-31 14:10] LABS: Abs Immature Grans 0.02 10^3/uL (0.0-0.06); Absolute Basophil Count 0.04 10^3/uL (0.0-0.2); Absolute Lymphocyte Count 1.62 10^3/uL (1.2-3.4); Absolute Monocyte Count 0.62 10^3/uL (0.1-0.8); Absolute Neutrophil Count 3.36 10^3/uL (1.2-6.7); Basophils % 0.7; Eosinophils % 1.7; HCT 35.1 % (40.0-50.0); HGB 10.9 g/dL (13.5-17.5); Immature Grans % 0.3; Lymphocytes % 28.1; MCHC 31.1 % (32.0-36.0); MCV 74.2 fL (80-95); MPV 11.9 fL (8.0-11.0); Monocytes % 10.8; Neutrophils % 58.4; Nucleated RBC 0 %; RBC 4.73 10^6/uL (4.36-5.78); RDW 16.8 % (11.8-14.1); RDW-SD 44.7 fL; WBC 5.76 10^3/uL (4.4-10.8)
[2020-10-31 14:19] LABS: ALT 21 U/L (16-63); AST 12 U/L (15-37); Albumin 3.5 g/dL (3.4-5.0); Alkaline Phosphatase 73 U/L (46-116); Anion Gap 9.5 mmol/L (3-11); BUN 19 mg/dL (7-18); Bilirubin, Total 0.4 mg/dL (0.2-1.0); CO2 25.5 mmol/L (21.0-32.0); CREATININE 1.5 mg/dL (0.70-1.30); Calcium 8.9 mg/dL (8.5-10.1); Chloride 105 mmol/L (98-107); Estimated GFR 48.77 (mL/min/1.73m2); Glucose 230 mg/dL (74-106); Sodium 140 mmol/L (136-145); Total Protein 6.9 g/dL (6.4-8.2)
[2020-10-31 14:25] LABS: Anisocytosis 1+; Diff Comment Diff Reviewed; Microcytosis 2+; Polychromasia Present
[2020-10-31 14:26] LABS: Poikilocytes 1+
[2020-10-31 14:27] LABS: Platelet Count 272 10^3/uL (130-400)
[2020-10-31 14:30] LABS: PTT Activated 21.6 sec (21.0-27.5); Prothrombin Time 9.8 sec (9.3-11.0)
[2020-10-31 14:39] LABS: Hypochromasia 1+
--- NOTE | 2020-10-31 15:30 | W.SURGCON ---
Date of service: 10/31/20 Time of Service: 15:30 [facility] Medical History (Updated 09/22/19 @ 17:11 by Jos Nance) COPD (chronic obstructive pulmonary disease) Coronary artery disease involving [place] heart with angina pectoris (02/08/15) Diabetes mellitus better Ischemic cardiomyopathy Surgical History Stent placement x 2 Social History Smoking/Tobacco Use Status: Former Tobacco Use Smoking risk assessment performed?: Yes Alcohol Intake: current Alcohol Intake frequency: holidays/special occasions only Drug use: Never Substance use type: does not use Do you feel safe at home: Yes Do you feel safe in your relationship?: Yes Results Last Vital Signs Temp 36.7 C 10/31/20 13:07 Pulse 73 10/31/20 15:26 Resp 18 10/31/20 13:07 BP 120/80 10/31/20 15:26 Pulse Ox 97 10/31/20 13:07 Labs Result diagrams: 10/31/20 13:55 10/31/20 13:55 Labs: Laboratory Results - last 24 hr 10/31/20 10/31/20 10/31/20 13:55 13:55 13:55 WBC 5.76 RBC 4.73 Hgb 10.9 L Hct 35.1 L MCV 74.2 L MCH 23.0 L MCHC 31.1 L RDW 16.8 H Plt Count 272 MPV 11.9 H Immature Gran % 0.3 Neutrophils % 58.4 Lymphocytes % 28.1 Monocytes % 10.8 Eosinophils % 1.7 Basophils % 0.7 Nucleated RBC % 0 Absolute Neutrophils 3.36 Absolute Lymphocytes 1.62 Absolute Monocytes 0.62 Absolute Eosinophils 0.10 Absolute Basophils 0.04 RBC Morphology See Below Polychromasia Present Hypochromasia 1+ Poikilocytosis 1+ Anisocytosis 1+ Microcytosis 2+ PT 9.8 INR 1.0 APTT 21.6 Sodium 140 Potassium 4.0 Chloride 105 Carbon Dioxide 25.5 Anion Gap 9.5 BUN 19 H Creatinine 1.5 H Estimated GFR/1.73 m2 48.77 Glucose 230 H Calcium 8.9 Total Bilirubin 0.4 AST 12 L ALT 21 Alkaline Phosphatase 73 Total Protein 6.9 Albumin 3.5
--- NOTE | 2020-10-31 16:00 | DI.CT_ITS ---
Exam(s) CT ABDOMEN PELVIS CTA EXAM: CT ABDOMEN PELVIS CTA CLINICAL HISTORY: rectal bleeding, r/o arterial bleeding TECHNIQUE: COMPARISON: CR XR PORTABLE CHEST AP from 07/11/2019 CR XR PORTABLE CHEST AP from 07/11/2019 FINDINGS: CT angiography of the abdomen and pelvis was performed with bolus infusion of 100 cc of Omnipaque 350 . Note is made of a cardiac pacemaker in position. Images obtained through the lung bases are unrem arkable. Liver and spleen appear normal. Gallbladder and bile ducts are CT normal. Pancreas appears intact. Adrenals and kidneys are unremarkable with symmetrical cortical enhancement the kidneys. No hydrone phrosis or nephrolithiasis. No abdominal or pelvic adenopathy. No focal bowel pathology. No eviden ce of acute intraluminal extravasation but arterial phase imaging is not ideal for detection of acute hemorrhage. Abdominal aorta is of normal diameter and major visceral branches appear normal. Adrenals are normal. Urinary bladder is normal and moderately distended. IMPRESSION: Negative CT angiogram abdomen and pelvis. Please note that venous phase imaging would be superior for detecting acute arterial bleeding. RADIATION DOSE DELIVERED: 871.6mGy.cm Total DLP RADIATION OPTIMIZATION: All CT scans at this facility use at least one of these dose optimization te chniques: automated exposure control; mA and/or kV adjustment per patient size (includes targeted exa ms where dose is matched to clinical indication); or iterative reconstruction.
[2020-10-31] MEDS: Breeza Beverage 473 ML BTL PO ×2 (16:16→16:17)
[2020-10-31 16:30] LABS: Source Nasal/Nares
[2020-10-31] MEDS: Normal Saline - Diluent 50 ML VIAL IV (17:29)
[2020-10-31] MEDS: Omnipaque 350 MG/ML 100 ML BTL IJ (17:30)
[2020-10-31 18:09] LABS: COVID-19 PCR Negative (Negative)
--- NOTE | 2020-10-31 18:13 | DI.VRAD_ITS ---
PROCEDURE INFORMATION: Exam: CT Angiography Abdomen and Pelvis With Contrast, GI Bleeding Exam date and time: 10/31/2020 4:10 PM Age: 55 years old Clinical indication: Other: Rectal bleeding, R/O arterial bleeding TECHNIQUE: Imaging protocol: Computed tomographic angiography of the abdomen and pelvis with contrast. 3D rendering (Not supervised by radiologist): MIP and/or 3D reconstructed images were created by the technologist. Contrast material: OMNIPAQUE 350; Contrast volume: 100 ml; Contrast route: INTRAVENOUS (IV); COMPARISON: CR XR PORTABLE CHEST AP 07/11/2019 12:20 PM FINDINGS: Aorta: There is no evidence of dissection or traumatic injury of the abdominal aortic, visceral branches and iliac vessels. Celiac trunk and mesenteric arteries: No occlusion or significant stenosis. Renal arteries: No occlusion or significant stenosis. Right iliac arteries: No occlusion or significant stenosis. Left iliac arteries: No occlusion or significant stenosis. Other arteries: No evidence of active contrast extravasation within the hollow viscus in this arterial phase study. However, sensitivity to detect lower gastrointestinal hemorrhage is decreased due to the lack of a venous phase CT. Liver: No mass. Gallbladder and bile ducts: Unremarkable. No calcified stones. No ductal dilation. Pancreas: Unremarkable. No mass. No ductal dilation. Spleen: Unremarkable. No splenomegaly. Adrenal glands: The adrenal glands are mildly enlarged and somewhat nodular in appearance. Kidneys and ureters: Unremarkable. No solid mass. No hydronephrosis. Stomach and bowel: Unremarkable. Appendix: No evidence of appendicitis. Intraperitoneal space: Unremarkable. No free air. No significant fluid collection. Lymph nodes: Unremarkable. No enlarged lymph nodes. Urinary bladder: The urinary bladder is markedly distended. Reproductive: The prostate is heterogeneous but within normal limits in size. Bones/joints: No acute fracture. No dislocation. Soft tissues: Unremarkable. IMPRESSION: 1. Findings suspicious for bilateral adrenal hyperplasia. 2. Markedly distended urinary bladder raises suspicion for bladder outlet obstruction. 3. No evidence of dissection or arterial injury of the abdominal aorta are, visceral branches and iliac arteries. 4. No evidence of active contrast extravasation within the hollow viscus in this arterial phase study. However, sensitivity to the tech lower gastrointestinal hemorrhage is decreased due to the lack of a delayed venous phase CT. If there is suspicion of lower GI bleed, recommend further evaluation with a tagged red blood cell scan. Dictated and Authenticated by: Terry Milligan MD. Ordering:AFUA Hilton MD
--- NOTE | 2020-10-31 18:15 | RT.EKG_ITS ---
APPROVED REPORT Exam: Resting ECG Reason for Exam: hx of CAD/preOp Patient Location: I HR:55 bpm ECG Measurements Heart Rate 55 AXIS GA 166 P 59 QRSd 92 QRS 52 QT 443 T 72 QTc 423 Conclusion Sinus bradycardia...rate< 60
[2020-10-31 18:39] LABS: HCT 34.4 % (40.0-50.0); HGB 10.6 g/dL (13.5-17.5)
[2020-10-31 19:01] LABS: Anion Gap 7.2 mmol/L (3-11); BUN 19 mg/dL (7-18); CO2 26.8 mmol/L (21.0-32.0); CREATININE 1.2 mg/dL (0.70-1.30); Calcium 8.8 mg/dL (8.5-10.1); Chloride 105 mmol/L (98-107); Glucose 90 mg/dL (74-106); Magnesium 1.9 mg/dL (1.8-2.4); NT-proBNP 237 pg/mL (<300); Potassium 3.4 mmol/L (3.5-5.1); Sodium 139 mmol/L (136-145)
[2020-10-31 19:07] LABS: Troponin I 0.08 ng/mL (<0.06)
[2020-10-31] MEDS: Gabapentin 100 MG CAP PO (19:16)
[2020-10-31] MEDS: Rosuvastatin 10 MG TAB 40 MG PO (19:16)
[2020-10-31] MEDS: Tamsulosin 0.4 MG CAPCR PO (19:18)
[2020-10-31] MEDS: Bisacodyl 5 MG TABEC 10 MG PO (19:18)
[2020-10-31] MEDS: Normal Saline Flush 10 ML SYR IVP ×2 (19:19→21:05)
--- NOTE | 2020-10-31 20:22 | HPE_ITS ---
Date of service: 10/31/20 Time of Service: 12:30 Assessment and Plan Assessment and plan (1) Rectal bleeding: Status: Acute Assessment and plan: -monitor HGB -Dr. Briscoe did discuss the case with cardiology today. They declined admission. Patient does not need to be on any further Plavix from their standpoint the Plavix can be stopped. From cardiology standpoint there were no contraindications for the patient having a colonoscopy.. -Patient did have a SHINGLES ROOFER HELPER in [facility] 03/22/2020. At that time he did have significant narrowing of the LAD. They were able to perform angioplasty. But they could not get a stent in because of the configuration of the vessel. He angioplasty did help improve his chest pain. -Patient did have a low potassium on his lab work today. He is in the middle of doing a bowel prep and this will ameliorate low potassium. -Routine troponin was drawn because of his cardiac history. He is not having any chest pain. It did come back mildly elevated. The hospitalist service is consulted because of this. We dcannot get an echo on Wednesday. -He is placed on IV Protonix -Aspirin and Lovenox are stopped -We will continue to follow his hemoglobins -We will discuss the case with anesthesia in the morning. labs in am 90 minutes is spent in consultation (2) COPD (chronic obstructive pulmonary disease): Status: Chronic (3) Diabetes mellitus: Status: Chronic Qualifiers: Diabetes mellitus complication detail: with microalbuminuria Diabetes mellitus complication status: with kidney complications Diabetes mellitus penitentiary insulin use: with penitentiary use Diabetes mellitus type: type 2 Qualified Code(s): E11.29 - Type 2 diabetes mellitus with other diabetic kidney complication; R80.9 - Proteinuria, unspecified; Z79.4 - intermediate (current) use of insulin (4) Coronary artery disease involving [place] heart with angina pectoris: Status: Acute (5) History of intravascular stent placement: Status: Acute (6) Anxiety: Status: Chronic (7) Type II diabetes mellitus, uncontrolled: Status: Acute (8) Systolic dysfunction: Status: Acute (9) Hyperlipidemia: Status: Acute (10) Coronary artery disease: Status: Acute (11) Hyperlipidemia: Status: Chronic (12) Anemia due to blood loss, acute: Status: Acute (13) Elevated troponin: Status: Acute (14) Ischemic cardiomyopathy: Status: Chronic (15) Cardiac defibrillator in place: Status: Acute History of Present Illness Narrative: pt presented to the ED w/ BRBPR that started today after a BM. Pt denies straining to move his bowels. He has never had anything like this before. He is on olavix adn ASA. He has a significant CAD dx hx. he denies any trauma. He denies any rectal instrumentation. His bowels are regular and he is not having any diarrhea. He has had no fever or chills. No nausea and vomiting. He has no abdominal pain. He has no rectal pain. He is not had any weight loss. He has never had a colonoscopy. He has no upper GI signs and symptoms. He not aware that he has diverticular disease. He was transferred down to [facility] in March 2020. He was having chest pain and had a stress test which is positive was positive. They did a SHINGLES ROOFER HELPER. He did have a lesion in the LAD that they were able to angioplasty but they could not place a stent. Cardiology was contacted today and his chart reviewed. They refused to take as an admission. Cardiology stated that he only needed to be on Plavix for 6 months and he could come off of the Plavix. (He did miss his follow-up appointment). His cardiology notes clearly state he was not a candidate for any further angio plasties or stents. He was not a candidate for CABG. And that any further cardiac problems would be managed medically. He is on ranolazine For chronic chest pain. Prior to the angioplasty in 03/2020 he was having chest pain 10-20 times a day. Now he says his chest pain is random it depends on what he is doing. He may have days with no chest pain or he may have chest pain for 3-4 times a day. Nitrates do not help. He has a defibrillator in place. His last EF was 45%. MPRESSION: 1. Findings suspicious for bilateral adrenal hyperplasia. 2. Markedly distended urinary bladder raises suspicion for bladder outlet obstruction. 3. No evidence of dissection or arterial injury of the abdominal aorta are, visceral branches and iliac arteries. 4. No evidence of active contrast extravasation within the hollow viscus in this arterial phase study. However, sensitivity to the tech lower gastrointestinal hemorrhage is decreased due to the lack of a delayed venous phase CT. If there is suspicion of lower GI bleed, recommend further evaluation with a tagged red blood cell scan. Review of Systems All systems reviewed & are unremarkable except as noted in HPI and below PFSH Medical History COPD (chronic obstructive pulmonary disease) Coronary artery disease involving [place] heart with angina pectoris (02/08/15) Diabetes mellitus better Ischemic cardiomyopathy Surgical History Stent placement x 2 Social History Smoking/Tobacco Use Status: Former Tobacco Use Smoking risk assessment performed?: Yes Alcohol Intake: current Alcohol Intake frequency: holidays/special occasions only Drug use: Never Substance use type: does not use Do you feel safe at home: Yes Do you feel safe in your relationship?: Yes Meds Allergies and Home Medications Allergies Allergy/AdvReac Type Severity Reaction Status Date / Time No Known Allergies Allergy Verified 10/31/20 13:10 Home Medications Medication Instructions Recorded Confirmed Type aspirin [Aspirin Low-Strength] 81 mg PO DAILY tab-cap 03/27/13 10/31/20 History lancets [One Touch Delica] #100 ea 03/26/14 03/12/20 History blood-glucose meter [Onetouch #1 kit 01/22/16 03/12/20 History Ultra2] blood-glucose meter [Onetouch #1 kit 05/29/16 03/12/20 History Ultramini] budesonide-formoterol HFA 160 2 puff INHALATION BID #1 inhaler 07/05/19 10/31/20 Rx mcg-4.5 mcg/actuation aerosol inhaler albuterol sulfate 90 mcg/actuation 2 puff INHALATION Q4H PRN #3 07/14/19 10/31/20 Rx aerosol inhaler inhaler amlodipine 2.5 mg tablet 2.5 mg PO DAILY 07/14/19 10/31/20 History nitroglycerin 0.4 mg sublingual 0.4 mg SUBLINGUAL Q5-15M PRN #25 12/15/19 10/31/20 Rx tablet tab-cap MDD 3 tabs ranolazine 500 mg tablet,extended 500 mg PO BID #60 tab 12/15/19 10/31/20 Rx release,12 hr pen needle, diabetic 31 gauge x #100 ea 04/29/20 Rx 09/15 isosorbide mononitrate 120 mg 240 mg PO DAILY #180 tab 05/13/20 10/31/20 Rx tablet,extended release 24 hr blood sugar diagnostic #400 each 07/29/20 Rx fluoxetine 20 mg capsule 20 mg PO DAILY #90 cap 07/30/20 10/31/20 Rx gabapentin 100 mg capsule 100 mg PO BID #180 tab-cap 09/10/20 10/31/20 Rx metformin 1,000 mg tablet 1,000 mg PO BID #180 tab-cap 09/10/20 10/31/20 Rx metoprolol succinate 100 mg 150 mg PO DAILY #135 tab 09/10/20 10/31/20 Rx tablet,extended release 24 hr pantoprazole 40 mg tablet,delayed 40 mg PO DAILY #90 tab-cap 09/10/20 10/31/20 Rx release rosuvastatin 40 mg tablet 40 mg PO DAILY #90 tab-cap 09/10/20 10/31/20 Rx tiotropium bromide 1.25 2 puff IH DAILY #12 g 09/10/20 10/31/20 Rx mcg/actuation mist for inhalation empagliflozin [Jardiance] 25 mg PO DAILY 10/31/20 10/31/20 History famotidine 20 mg PO HS 10/31/20 10/31/20 History insulin regular hum U-500 conc 500 unit SUBCUT TID 10/31/20 10/31/20 History [Humulin R U-500 (Conc) Kwikpen] ranolazine 500 mg PO BID 10/31/20 10/31/20 History Exam Const General: cooperative and comfortable Orientation: alert, awake and oriented x3 Other: no CP tody. He has been feeling more SOB. Hgb today is 10. Resp Effort & Inspection: normal respiratory effort and able to speak in complete sentences Auscultation: clear to auscultation bilaterally Cardio Rate: regular rate Rhythm: regular rhythm GI Other: abdom is soft adn non tender. rectal exam: excoriation- mild. Speculum exam was done. There was a significant quantity of bright red blood. But it seemed to be coming up from higher than what my speculum could show. He did not have any significant hemorrhoidal disease or a fissure. he did have a significant amount of blood. Results Labs Result diagrams: 10/31/20 18:25 10/31/20 18:25 Labs: Laboratory Results - last 24 hr 10/31/20 10/31/20 10/31/20 13:55 13:55 13:55 WBC 5.76 RBC 4.73 Hgb 10.9 L Hct 35.1 L MCV 74.2 L MCH 23.0 L MCHC 31.1 L RDW 16.8 H Plt Count 272 MPV 11.9 H Immature Gran % 0.3 Neutrophils % 58.4 Lymphocytes % 28.1 Monocytes % 10.8 Eosinophils % 1.7 Basophils % 0.7 Nucleated RBC % 0 Absolute Neutrophils 3.36 Absolute Lymphocytes 1.62 Absolute Monocytes 0.62 Absolute Eosinophils 0.10 Absolute Basophils 0.04 RBC Morphology See Below Polychromasia Present Hypochromasia 1+ Poikilocytosis 1+ Anisocytosis 1+ Microcytosis 2+ PT 9.8 INR 1.0 APTT 21.6 Sodium 140 Potassium 4.0 Chloride 105 Carbon Dioxide 25.5 Anion Gap 9.5 BUN 19 H Creatinine 1.5 H Estimated GFR/1.73 m2 48.77 Glucose 230 H Calcium 8.9 Magnesium Total Bilirubin 0.4 AST 12 L ALT 21 Alkaline Phosphatase 73 Troponin I NT-Pro-B Natriuret Pep Total Protein 6.9 Albumin 3.5 COVID-19 Source SARS-CoV-2 (PCR) Patient ABO/Rh Antibody Screen 10/31/20 10/31/20 10/31/20 16:25 18:25 18:25 WBC RBC Hgb Hct MCV MCH MCHC RDW Plt Count MPV Immature Gran % Neutrophils % Lymphocytes % Monocytes % Eosinophils % Basophils % Nucleated RBC % Absolute Neutrophils Absolute Lymphocytes Absolute Monocytes Absolute Eosinophils Absolute Basophils RBC Morphology Polychromasia Hypochromasia Poikilocytosis Anisocytosis Microcytosis PT INR APTT Sodium 139 Potassium 3.4 L Chloride 105 Carbon Dioxide 26.8 Anion Gap 7.2 BUN 19 H Creatinine 1.2 Estimated GFR/1.73 m2 >= 60.00 Glucose 90 D Calcium 8.8 Magnesium 1.9 Total Bilirubin AST ALT Alkaline Phosphatase Troponin I 0.08 H* NT-Pro-B Natriuret Pep 237 Total Protein Albumin COVID-19 Source Nasal/Nares SARS-CoV-2 (PCR) Negative Patient ABO/Rh A Positive Antibody Screen NEGATIVE 10/31/20 18:25 WBC RBC Hgb 10.6 L Hct 34.4 L MCV MCH MCHC RDW Plt Count MPV Immature Gran % Neutrophils % Lymphocytes % Monocytes % Eosinophils % Basophils % Nucleated RBC % Absolute Neutrophils Absolute Lymphocytes Absolute Monocytes Absolute Eosinophils Absolute Basophils RBC Morphology Polychromasia Hypochromasia Poikilocytosis Anisocytosis Microcytosis PT INR APTT Sodium Potassium Chloride Carbon Dioxide Anion Gap BUN Creatinine Estimated GFR/1.73 m2 Glucose Calcium Magnesium Total Bilirubin AST ALT Alkaline Phosphatase Troponin I NT-Pro-B Natriuret Pep Total Protein Albumin COVID-19 Source SARS-CoV-2 (PCR) Patient ABO/Rh Antibody Screen Last Vital Signs Temp 36.7 C 10/31/20 13:07 Pulse 62 10/31/20 16:30 Resp 16 10/31/20 16:05 BP 117/59 L 10/31/20 16:30 Pulse Ox 96 10/31/20 16:30
[2020-10-31] MEDS: Famotidine 20 MG TAB PO (21:01)
[2020-10-31] MEDS: Budesonide/Formoterol 160/4.5 6 GM 60 PUFF INH IH (21:01)
[2020-10-31] MEDS: Pantoprazole 40 MG VIAL IVP (21:05)
--- NOTE | 2020-10-31 21:52 | MCONE_ITS ---
Date of service: 10/31/20 Time of Service: 21:52 Assessment and Plan Assessment and plan (1) Elevated troponin: Status: Acute Assessment and plan: This does not clearly meet criteria at this point for NSTEMI as he is not having any chest pain or EKG changes. Also, his troponin is within 0.02 of levels he has had for the past year, so there is not dynamic change to troponin that we need to diagnose ACS. Will repeat troponin to try to establish presence of dynamic cardiac process. Even if troponin trending up, this would be type 2 ACS related to blood loss and I would hesitate to re-initiate antiplatelet agents or treat with heparin with his active GI (2) Anemia due to blood loss, acute: Status: Acute Assessment and plan: Hgb was stable after intial 4.5hr repeat, which is good news and suggest lack of ongoing significant blood loss. Continue to monitor. (3) Rectal bleeding: Status: Acute Assessment and plan: Mangement per Dr. Zuleta, patient NPO at [place] for possible colonoscopy tomorrow as likelyu lowe GI bleed. holding DAPT (per cardiology can continue off clopidogrel indefinitely) (4) COPD (chronic obstructive pulmonary disease): Status: Chronic Assessment and plan: STable, continue chronic LAMA. (5) Diabetes mellitus: Status: Chronic Assessment and plan: A1c was adequately controlled in August 2020 at 7.7%. I agree with use of basal/bolus insulin and holding metformin given contrast CT and Jardiance given volume loss. 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 Conitnue to monitor (7) Urinary retention: Status: Acute Assessment and plan: Voiding well but post-voids are elevated. Not severe enough to affect kidney function so will simply monitor for now. (8) DVT prophylaxis: Status: Acute Assessment and plan: TEDS/SCDs given acitve GI bleed. History of Present Illness History of Present Illness Chief Complaint: bloody stools, positive troponin Narrative: 55 yo M with extensive cardiac history including s/p CABG and known LAD s/p angioplasty 03/22 who is currently being medically managed for chronic angina by cardiology at [facility], admitted to the [facility] surgical service with acute BRBPR secondary to a presumed lower GI bleed. Medicine consult requested by Dr. Zuleta from surgery service after positive troponin of 0.08. Bleeding occurred his regular bowel movement on morning of admission (about 12 hour ago) and continued after. Red blood. He has not had GI bleed previously. No abdominal pain or pain with BM. He has not seen other sources of bleeding. The patient has not had chest pain since he has been in the hospital, though he chronically has frequent angina pain for the past year and more. He does not feel lightheaded, tachycardia, or increased shortness of breath. Consults Consult date: 10/31/20 Requesting physician: Zohra Zuleta Review of Systems Constitutional Constitutional: Denies anorexia, Denies chills, Denies fever(s), Denies poor a ppetite and Denies weakness Eyes Eyes: Denies change in vision and Denies irritation ENT Ears, Nose, Mouth, and Throat: Denies dizziness, Denies nasal congestion, Denies nasal discharge and Denies sore throat Cardiovascular Cardiovascular: Denies chest pain, Denies syncope, Denies rapid heart rate, D enies palpitations and Denies orthopnea Respiratory Respiratory: Denies cough, Denies excessive phlegm production and Denies wheezing Comments: using chronic inhalers Gastrointestinal Gastrointestinal: Denies abdominal pain, Denies melena, Denies heartburn, Denies diarrhea and Denies vomiting Genitourinary Genitourinary: Denies hematuria, Denies dysuria and Denies urinary incontinence Musculoskeletal Comments: has chronic joint pain Integumentary/Breasts Skin/Breast: Denies rash and Denies skin ulcer Neurologic Neurologic: Denies dizziness, Denies syncope, Denies sensory deficit and Denies weakness Psychiatric Psychiatric: Denies mood swings and Denies panic attacks Endocrine Endocrine: Denies palpitations Hematologic/Lymphatic Hematologic/Lymphatic: Denies easy bleeding, Denies easy bruising and Denies lymphadenopathy Allergic/Immunologic Allergic/Immunologic: Denies wheezing [facility] Medical History COPD (chronic obstructive pulmonary disease) Coronary artery disease involving [place] heart with angina pectoris (02/08/15) Diabetes mellitus better Ischemic cardiomyopathy Surgical History S/P CABG (coronary artery bypass graft) Stent placement x 2 Social History (Updated 10/31/20 @ 22:54 by Barrett Wylie) Smoking/Tobacco Use Status: Former Tobacco Use Smoking risk assessment performed?: Yes Alcohol Intake: current Alcohol Intake frequency: holidays/special occasions only Drug use: Never Substance use type: does not use Do you feel safe at home: Yes Do you feel safe in your relationship?: Yes Additional Social history: Lives with . Works at [employer] Exam Narrative Exam Narrative: GEN: Alert and oriented, pleasent and cooperative, gives linear history. No acute distress at rest. HEENT: Head atraumatic. Conjunctiva clear, no icterus, not markedly pale. PEERL, EOMI. no rhinorrhea. MMM, OP benign. Neck is supple with no masses or lymphadenopathy, trachea midline LUNGS: CTAB with normal effort CV: RRR with no murmurs, gallops, or rubs. ABD: +BS, soft, NT/ND EXT: no cyanosis, clubbing, or edema MSK: No joint redness or swelling NEURO: CN 2-12 grossly intact. Normal movement of 4 extremities. Normal speech and coordination. no tremor SKIN: No rashs or open wounds. PSYCH: normal mood and affect Results Last Vital Signs Temp 36.7 C 10/31/20 13:07 Pulse 53 L 10/31/20 21:30 Resp 18 10/31/20 21:31 BP 108/61 10/31/20 21:30 Pulse Ox 97 10/31/20 19:20 Labs Result diagrams: 10/31/20 18:25 10/31/20 18:25 Labs: Laboratory Results - last 24 hr 10/31/20 10/31/20 10/31/20 13:55 13:55 13:55 WBC 5.76 RBC 4.73 Hgb 10.9 L Hct 35.1 L MCV 74.2 L MCH 23.0 L MCHC 31.1 L RDW 16.8 H Plt Count 272 MPV 11.9 H Immature Gran % 0.3 Neutrophils % 58.4 Lymphocytes % 28.1 Monocytes % 10.8 Eosinophils % 1.7 Basophils % 0.7 Nucleated RBC % 0 Absolute Neutrophils 3.36 Absolute Lymphocytes 1.62 Absolute Monocytes 0.62 Absolute Eosinophils 0.10 Absolute Basophils 0.04 RBC Morphology See Below Polychromasia Present Hypochromasia 1+ Poikilocytosis 1+ Anisocytosis 1+ Microcytosis 2+ PT 9.8 INR 1.0 APTT 21.6 Sodium 140 Potassium 4.0 Chloride 105 Carbon Dioxide 25.5 Anion Gap 9.5 BUN 19 H Creatinine 1.5 H Estimated GFR/1.73 m2 48.77 Glucose 230 H Calcium 8.9 Magnesium Total Bilirubin 0.4 AST 12 L ALT 21 Alkaline Phosphatase 73 Troponin I NT-Pro-B Natriuret Pep Total Protein 6.9 Albumin 3.5 COVID-19 Source SARS-CoV-2 (PCR) Patient ABO/Rh Antibody Screen 10/31/20 10/31/20 10/31/20 16:25 18:25 18:25 WBC RBC Hgb Hct MCV MCH MCHC RDW Plt Count MPV Immature Gran % Neutrophils % Lymphocytes % Monocytes % Eosinophils % Basophils % Nucleated RBC % Absolute Neutrophils Absolute Lymphocytes Absolute Monocytes Absolute Eosinophils Absolute Basophils RBC Morphology Polychromasia Hypochromasia Poikilocytosis Anisocytosis Microcytosis PT INR APTT Sodium 139 Potassium 3.4 L Chloride 105 Carbon Dioxide 26.8 Anion Gap 7.2 BUN 19 H Creatinine 1.2 Estimated GFR/1.73 m2 >= 60.00 Glucose 90 D Calcium 8.8 Magnesium 1.9 Total Bilirubin AST ALT Alkaline Phosphatase Troponin I 0.08 H* NT-Pro-B Natriuret Pep 237 Total Protein Albumin COVID-19 Source Nasal/Nares SARS-CoV-2 (PCR) Negative Patient ABO/Rh A Positive Antibody Screen NEGATIVE 10/31/20 18:25 WBC RBC Hgb 10.6 L Hct 34.4 L MCV MCH MCHC RDW Plt Count MPV Immature Gran % Neutrophils % Lymphocytes % Monocytes % Eosinophils % Basophils % Nucleated RBC % Absolute Neutrophils Absolute Lymphocytes Absolute Monocytes Absolute Eosinophils Absolute Basophils RBC Morphology Polychromasia Hypochromasia Poikilocytosis Anisocytosis Microcytosis PT INR APTT Sodium Potassium Chloride Carbon Dioxide Anion Gap BUN Creatinine Estimated GFR/1.73 m2 Glucose Calcium Magnesium Total Bilirubin AST ALT Alkaline Phosphatase Troponin I NT-Pro-B Natriuret Pep Total Protein Albumin COVID-19 Source SARS-CoV-2 (PCR) Patient ABO/Rh Antibody Screen Imaging Abdomen CT scan report/results: report reviewed (IMPRESSION: 1. Findings suspicious for bilateral adrenal hyperplasia. 2. Markedly distended urinary bladder raises suspicion for bladder outlet obstruction. 3. No evidence of dissection or arterial injury of the abdominal aorta are, visceral branches and iliac arteries. 4. No evidence of active cont) EKG: report reviewed (Sinus rizwan, no ST-T abnormalities c/w ischemia. Q waves V1-V2) and image reviewed
[2020-10-31 21:56] LABS: Iron 34 ug/dL (65-175); Total Iron Binding Capacity 380 ug/dL (250-450); Transferrin Sat 9 % (20-55)
[2020-10-31 22:10] LABS: Ferritin 6 ng/mL (26-388)
[2020-11-01] VITALS (9 sets, daily range): BP systolic 106–131; BP diastolic 55–67; PULSE 51–64; RESP 17–22; TEMP 36–36.5; TEMPC 36; O2SAT 94–97; BMI 32.8
[2020-11-01] MEDS: Lactated Ringers 1,000 ML 75 ML IV (06:29)
[2020-11-01] MEDS: Insulin Aspart 300 UNITS/3 ML PEN SC ×2 (06:34→11:35)
[2020-11-01 06:41] LABS: HCT 36.4 % (40.0-50.0)
[2020-11-01 06:53] LABS: Magnesium 1.6 mg/dL (1.8-2.4); NT-proBNP 165 pg/mL (<300)
[2020-11-01 07:00] LABS: Troponin I 0.08 ng/mL (<0.06)
[2020-11-01] MEDS: Metoprolol CR 100 MG TABCR 150 MG PO (08:22)
[2020-11-01] MEDS: IRON SUCROSE COMPLEX 200 MG in Normal Saline 100 ML 400 MG IVPB (08:25)
[2020-11-01] MEDS: Budesonide/Formoterol 160/4.5 6 GM 60 PUFF INH IH (08:33)
[2020-11-01] MEDS: Tiotropium Bromide-Respimat 10 PUFF INH 2 PUFF IH (08:34)
--- NOTE | 2020-11-01 09:38 | PDOC.CMIN ---
- If Service Date Differs Date of service: 11/01/20 Time of Service: 09:38 Care Management Initial Assess REASON FOR HOSPITALIZATION:: Rectal bleeding, on blood thinners, CHF&CAD PAST MEDICAL HISTORY/PAST SURGICAL HISTORY:: COPD, CAD involving [place] with angina pectoris, DM, ischemic cardiomyopathy, CABG, stent x2 PREVIOUS FUNCTIONAL STATUS/SOCIAL/FAMILY SUPPORTS:: Resides in [place] with , Madelyn. Sister Tonja resides in [place] and is also supportive. Extensive cardiac hx otherwise, independent at baseline with ADLs, with SOB on exertion. CURRENT FUNCTIONAL STATUS:: Prepared for discharge; no concerns expressed. Has patient been provided with info about the portal/API?: Yes Did the patient sign up for the portal?: Yes (Previously) CODE STATUS:: Full Code INSURANCE COVERAGE / FINANCIAL ISSUES:: [facility] PRIMARY CARE PHYSICIAN:: Jos Nance POTENTIAL DISCHARGE NEEDS:: Follow up appointments. PATIENT/FAMILY EDUCATION NEEDS:: Review discharge instructions, discuss Ask Me Three. ANTICIPATED BARRIERS TO DISCHARGE:: None identified. TRANSPORTATION:: Via private vehicle with family. PLAN:: Rajendra remains in the ICU and is participating in a work up for rectal bleeding. Rajendra will return home with no new services and follow up with his community providers. .
--- NOTE | 2020-11-01 09:59 | ANES.PREOP_ITS ---
General Info Date of Service Date Performed: 11/01/20 Height: 5 ft 10 in Weight: 104 kg Body Mass Index (BMI): 32.8 Surgical Procedure: Operation Date: 11/01/20 11:50 Proposed Procedures Side Surgeon gonzalo Zuleta, Meds Allergies and Home Medications Allergies Allergy/AdvReac Type Severity Reaction Status Date / Time No Known Allergies Allergy Verified 10/31/20 13:10 Home Medication Medication Instructions Recorded aspirin [Aspirin Low-Strength] 81 mg PO DAILY tab-cap 03/27/13 lancets [One Touch Delica] #100 ea 03/26/14 blood-glucose meter [Onetouch #1 kit 01/22/16 Ultra2] blood-glucose meter [Onetouch #1 kit 05/29/16 Ultramini] budesonide-formoterol HFA 160 2 puff INHALATION BID #1 inhaler 07/05/19 mcg-4.5 mcg/actuation aerosol inhaler albuterol sulfate 90 mcg/actuation 2 puff INHALATION Q4H PRN #3 07/14/19 aerosol inhaler inhaler amlodipine 2.5 mg tablet 2.5 mg PO DAILY 07/14/19 nitroglycerin 0.4 mg sublingual 0.4 mg SUBLINGUAL Q5-15M PRN #25 12/15/19 tablet tab-cap MDD 3 tabs ranolazine 500 mg tablet,extended 500 mg PO BID #60 tab 12/15/19 release,12 hr pen needle, diabetic 31 gauge x #100 ea 04/29/20 5/16 isosorbide mononitrate 120 mg 240 mg PO DAILY #180 tab 05/13/20 tablet,extended release 24 hr blood sugar diagnostic #400 each 07/29/20 fluoxetine 20 mg capsule 20 mg PO DAILY #90 cap 07/30/20 gabapentin 100 mg capsule 100 mg PO BID #180 tab-cap 09/10/20 metformin 1,000 mg tablet 1,000 mg PO BID #180 tab-cap 09/10/20 metoprolol succinate 100 mg 150 mg PO DAILY #135 tab 09/10/20 tablet,extended release 24 hr pantoprazole 40 mg tablet,delayed 40 mg PO DAILY #90 tab-cap 09/10/20 release rosuvastatin 40 mg tablet 40 mg PO DAILY #90 tab-cap 09/10/20 tiotropium bromide 1.25 2 puff IH DAILY #12 g 09/10/20 mcg/actuation mist for inhalation empagliflozin [Jardiance] 25 mg PO DAILY 10/31/20 famotidine 20 mg PO HS 10/31/20 insulin regular hum U-500 conc 500 unit SUBCUT TID 10/31/20 [Humulin R U-500 (Conc) Abigailikpen] ranolazine 500 mg PO BID 10/31/20 Current Visit Medications: Current Medications Generic Name Dose Route Start Last Admin Trade Name Freq PRN Reason Stop Dose Admin Albuterol Sulfate 2 puff 10/31/20 18:30 Albuterol Hfa 8 Gm 60 Puff Inh IH Q4H PRN FERNANDO Amlodipine Besylate 2.5 mg 11/01/20 08:30 Amlodipine 2.5 Mg Tab PO DAILY FERNANDO Budesonide/Formoterol Fumarate 2 puff 10/31/20 20:00 11/01/20 08:33 Budesonide/Formoterol 160/4.5 6 Gm 60 Puff Inh IH 2 puff BID FERNANDO Administration Dextrose 0 gm 10/31/20 18:26 Glucose 40% Oral Solution 15 Gm/37.5 Gm Tube PO DIRECTED PRN Dextrose/Water 0 gm 10/31/20 18:26 Dextrose 50%-Water 25 Gm/50 Ml Syr IVP DIRECTED PRN Famotidine 20 mg 10/31/20 22:00 10/31/20 21:01 Famotidine 20 Mg Tab PO 20 mg HS FERNANDO Administration Fluoxetine HCl 20 mg 11/01/20 08:30 Fluoxetine 20 Mg Cap PO DAILY FERNANDO Gabapentin 100 mg 10/31/20 20:00 10/31/20 19:16 Gabapentin 100 Mg Cap PO 100 mg BID FERNANDO Administration Sodium Chloride 500 mls @ 0 mls/hr 10/31/20 15:38 Saline 500ml Bag IV PRN PRN As Directed Ringer's Solution 1,000 mls @ 75 mls/hr 10/31/20 15:45 11/01/20 08:46 IV 75 mls/hr INFUSION FERNANDO Infusion Iron Sucrose 200 mg/ Sodium 110 mls @ 400 mls/hr 11/01/20 08:00 11/01/20 08:46 Chloride IVPB Infused TODAY@0800 FERNANDO Infusion IV Miscellaneous Supplies 1 each 10/31/20 15:45 Iv Access IV DIRECTED [facility] Insulin Aspart 0 units 11/01/20 06:00 11/01/20 06:34 Insulin Aspart 300 Units/3 Ml Pen SC 1 unit Q6H [facility] Administration Protocol Isosorbide Mononitrate 240 mg 11/01/20 08:30 Isosorbide Mononitrate 60 Mg Tabcr PO DAILY [facility] Metoprolol Succinate 150 mg 11/01/20 08:30 11/01/20 08:22 Metoprolol Cr 100 Mg Tabcr PO 150 mg DAILY [facility] Administration Nitroglycerin 0.4 mg 10/31/20 18:27 Nitroglycerin 0.4 Mg Tab SL Q5 MIN PRN X3 PRN chest pain Pantoprazole Sodium 40 mg 11/01/20 20:00 Pantoprazole 40 Mg Vial IVP Q24H [facility] Pt's Own Ranolazine 1 each 11/01/20 08:30 Er 500mg (Ranexa Er) PO BID [facility] Rosuvastatin Calcium 40 mg 11/01/20 20:00 Rosuvastatin 20 Mg Tab PO QPM [facility] Sodium Chloride 0 ml 10/31/20 15:38 Normal Saline Flush 10 Ml Syr IVP PRN PRN Sodium Cl/Sod Bicarb/Potass Cl/PEG 4,000 ml 10/31/20 19:00 Golytely 4000 Ml Btl PO DIRECTED [facility] Tamsulosin HCl 0.4 mg 11/01/20 08:30 Tamsulosin 0.4 Mg Capcr PO DAILY [facility] Tiotropium [place] 2 puff 11/01/20 08:30 11/01/20 08:34 Tiotropium [place]-Respimat 10 Puff Inh IH 2 puff DAILY [facility] Administration PFSH Active Problems Active Problems: Problem Status Onset Code DVT prophylaxis Z29.9 Urinary retention R33.[address] Z95.810 Elevated troponin R77.8 Anemia due to blood loss, acute D62 Rectal bleeding K62.5 Ischemic cardiomyopathy I25.5 Non-ST elevated myocardial infarction (non-STEMI) I21.4 Chest pain R07.9 Chest pain R07.9 Acute non-ST elevation myocardial infarction (NSTEMI) I21.4 COPD (chronic obstructive pulmonary disease) J44.9 Diabetes mellitus E11.9 Coronary artery disease involving [place] heart with angina pectoris 02/08/15 I25.119 Acute bilateral low back pain with right-sided sciatica M54.41 Sinus headache R51 Low blood sugar E16.2 History of intravascular stent placement Z95.828 Anxiety F41.9 Type II diabetes mellitus, uncontrolled E11.65 Systolic dysfunction 04/09/16 I51.9 Panlobular emphysema 06/19/15 J43.1 Old myocardial infarction I25.2 Hyperlipidemia 07/12/12 E78.5 History of tobacco use Z87.891 Chest pain 03/20/13 R07.9 Unstable angina 03/20/13 I20.0 Coronary artery disease 03/20/13 I25.10 Hyperlipidemia E78.5 Medical History Medical History COPD (chronic obstructive pulmonary disease) Coronary artery disease involving [place] heart with angina pectoris (02/08/15) Diabetes mellitus better Ischemic cardiomyopathy Medical History Comments:: 10/31/20 (1) Elevated troponin: Status: Acute Assessment and plan: This does not clearly meet criteria at this point for NSTEMI as he is not having any chest pain or EKG changes. Also, his troponin is within 0.02 of levels he has had for the past year, so there is not dynamic change to troponin that we need to diagnose ACS. Will repeat troponin to try to establish presence of dynamic cardiac process. Even if troponin trending up, this would be type 2 ACS related to blood loss and I would hesitate to re-initiate antiplatelet agents or treat with heparin with his active GI (2) Anemia due to blood loss, acute: Status: Acute Assessment and plan: Hgb was stable after intial 4.5hr repeat, which is good news and suggest lack of ongoing significant blood loss. Continue to monitor. (3) Rectal bleeding: Status: Acute Assessment and plan: Mangement per Dr. Zuleta, patient NPO at [place] for possible colonoscopy tomorrow as likelyu lowe GI bleed. holding DAPT (per cardiology can continue off clopidogrel indefinitely) (4) COPD (chronic obstructive pulmonary disease): Status: Chronic Assessment and plan: STable, continue chronic LAMA. (5) Diabetes mellitus: Status: Chronic Assessment and plan: A1c was adequately controlled in August 2020 at 7.7%. I agree with use of basal/bolus insulin and holding metformin given contrast CT and Jardiance given volume loss. SEE [facility] Cardiology note 08/09/20 Surgical History Surgical History S/P CABG (coronary artery bypass graft) Stent placement x 2 Tobacco Smoking/Tobacco Use Status: Former Tobacco Use Alcohol Alcohol Intake: current Alcohol intake frequency: holidays/special occasions on ly Substance Use Substance use: Never Substance use type: does not use Vital Signs and Lab Results Vital Signs Most Recent Vital Signs in EMR: Most Recent Vital Signs Temp Pulse Resp BP Pulse Ox 36.5 C 61 17 106/55 L 97 11/01/20 00:06 11/01/20 07:00 11/01/20 02:00 11/01/20 00:06 11/01/20 00:06 Point of Care Results Point of Care Results: Finger Stick Blood Glucose 148 11/01/20 08:15 Lab Results Result Diagrams: 11/01/20 06:10 10/31/20 18:25 Blood Type / Crossmatch: Patient ABO/Rh A Positive 10/31/20 18:25 10/31/20 Antibody Screen NEGATIVE 10/31/20 18:25 10/31/20 Complete Blood Count: White Blood Count 5.76 10^3/uL (4.4-10.8) 10/31/20 13:55 10/31/20 Red Blood Count 4.73 10^6/uL (4.36-5.78) 10/31/20 13:55 10/31/20 Hemoglobin 11.0 g/dL (13.5-17.5) L 11/01/20 06:10 11/01/20 Hematocrit 36.4 % (40.0-50.0) L 11/01/20 06:10 11/01/20 Platelet Count 272 10^3/uL (130-400) 10/31/20 13:55 10/31/20 Complete Metabolic Panel: Sodium Level 139 mmol/L (136-145) 10/31/20 18:25 10/31/20 Potassium Level 3.4 mmol/L (3.5-5.1) L 10/31/20 18:25 10/31/20 Chloride Level 105 mmol/L (98-107) 10/31/20 18:25 10/31/20 Carbon Dioxide Level 26.8 mmol/L (21.0-32.0) 10/31/20 18:25 10/31/20 Blood Urea Nitrogen 19 mg/dL (7-18) H 10/31/20 18:25 10/31/20 Creatinine 1.2 mg/dL (0.70-1.30) 10/31/20 18:25 10/31/20 Estimated GFR/1.73 m2 >= 60.00 (mL/min/1.73m2) 10/31/20 18:25 10/31/20 Magnesium Level 1.6 mg/dL (1.8-2.4) L 11/01/20 06:10 11/01/20 Calcium Level 8.8 mg/dL (8.5-10.1) 10/31/20 18:25 10/31/20 Albumin 3.5 g/dL (3.4-5.0) 10/31/20 13:55 10/31/20 Glucose Level 90 mg/dL (74-106) 10/31/20 18:25 10/31/20 Liver Function Panel: Alanine Aminotransferase (ALT/SGPT) 21 U/L (16-63) 10/31/20 13:55 10/31/20 Aspartate Amino Transf (AST/SGOT) 12 U/L (15-37) L 10/31/20 13:55 10/31/20 Coagulation Panel: INR International Normalized Ratio 1.0 (0.9-1.1) 10/31/20 13:55 10/31/20 Prothrombin Time 9.8 sec (9.3-11.0) 10/31/20 13:55 10/31/20 Activated Partial Thromboplast Time 21.6 sec (21.0-27.5) 10/31/20 13:55 10/31/20 Cardiac Panel: Troponin I 0.08 ng/mL (<0.06) H* 11/01/20 06:10 11/01/20 [id number] Natriuretic Peptide 165 pg/mL (<300) 11/01/20 06:10 11/01/20 Arterial Blood Gas: No Data to Display Venous Blood Gas: No Data to Display Pancreas Panel: No Data to Display Thyroid Panel: No Data to Display Infectious Disease: Coronavirus (COVID-19)(PCR) Negative (Negative) 10/31/20 16:25 10/31/20 Coronavirus 2019 Source Nasal/Nares 10/31/20 16:25 10/31/20 Blood Cultures: No Data to Display Toxicology Panel: No Data to Display Imaging and Studies Imaging and Studies EKG Summary: 09/03/20 Conclusion Sinus rhythm...normal P axis, V-rate 60- 99 Poor R wave progression Anesthesia Assessment and Plan Anesthesia History Personal History: No History of Anesthesia Complications Family History: No Family History of Anesthesia Complications Exercise Tolerance Exercise Tolerance: Metabolic Equivalents>4 Pertinent Negatives Pertinent Negatives: No Symptoms of GERD (Well controlled) and Other (HX stents 4 different events, CABG X 2, ) Cardiac & Pulmonary Exam Cardiac Exam: Normal S1/S2 Heart Sounds Pulmonary Exam: Clear Bilateral Breath Sounds Airway Exam Known Difficult Airway: No Mallampati Class: 2 Mouth Opening: Normal (> 3cm) Thyromental Distance: Greater than 3 cm Neck Range of Motion: Full ROM Neck Circumference: Thick Teeth Condition: Normal Dentition (All teeth are either rotted per pt or mi ssing) ASA Classification ASA Score: ASA 3 Emergency Case?: No NPO Status NPO Status: NPO Clears >2 hours, Solids >8 hours Anesthesia Plan Resuscitation Status: Full Code Anesthesia Technique: General Anesthesia Airway Planned: Natural Airway Monitors Used: Standard Monitors
[2020-11-01] MEDS: Normal Saline 1,000 ML 50 ML IV ×2 (10:25→11:39)
--- NOTE | 2020-11-01 10:33 | BOWEL_PTH ---
PATIENT: Rajendra Richardson LOC: ICU U#:[id number] AGE/SX: 55/M ROOM: ICU.219 RE10/31/[address]: Zohra Zuleta : 1965 BED: A DIS: 11/01/2020 SPEC #: [id number] RECD: 11/01/20 13:11 STATUS: CHOCO REQ #: [id number] WAN: 11/01/20 10:[address]: Zohra Zuleta DEPT: Surgical Specimen RECD BY: Mami Wilkes ENTERED: 11/01/20 13:12 SP TYPE: Bowel OTHR DR: Jos Nance MD Tissues: 1 - BIOPSY BOWEL Procedures: GROSS AND MICRO LEVEL 4 Comments: [id number]
--- NOTE | 2020-11-01 11:08 | PHA.REVIEW ---
Pharmacy Admission Review - Admission Clinical Review (Last Reviewed 10/31/20 @ 22:54 by Barrett Wylie) DVT prophylaxis (Acute) Urinary retention (Acute) Cardiac defibrillator in place (Acute) Elevated troponin (Acute) Anemia due to blood loss, acute (Acute) Rectal bleeding (Acute) Coronary artery disease involving [place] heart with angina pectoris (Acute 02/08/15) History of intravascular stent placement (Acute) Type II diabetes mellitus, uncontrolled (Acute) Systolic dysfunction (Acute 04/09/16) Hyperlipidemia (Acute 07/12/12) Coronary artery disease (Acute 03/20/13) No Known Allergies Allergy (Verified 10/31/20 13:10) Resuscitation Status Full Code Height 5 ft 10 in Weight 104 kg - Renal Dosing Renal Dosing: BUN 19 mg/dL (7-18) H 10/31/20 18:25 Creatinine 1.2 mg/dL (0.70-1.30) 10/31/20 18:25 Medications needing adjustments: Reviewed List of meds needing interventions: eCrCl 72 ml/min - all order ok - Anticoagulation Anticoagulation: Hgb 11.0 g/dL (13.5-17.5) L 11/01/20 06:10 Hct 36.4 % (40.0-50.0) L 11/01/20 06:10 Plt Count 272 10^3/uL (130-400) 10/31/20 13:55 INR 1.0 (0.9-1.1) 10/31/20 13:55 Creatinine 1.2 mg/dL (0.70-1.30) 10/31/20 18:25 DVT Prophylaxis: N/A Therapeutic Anticoagulation: N/A - Opiate Usage Evaluate Pain Scale/Pains Meds: N/A - Relevant Labs Sodium 139 mmol/L (136-145) 10/31/20 18:25 Potassium 3.4 mmol/L (3.5-5.1) L 10/31/20 18:25 Chloride 105 mmol/L (98-107) 10/31/20 18:25 Magnesium 1.6 mg/dL (1.8-2.4) L 11/01/20 06:10 Electrolytes, C-Reactive P, ESR: Reviewed (will notify about low mag) - DM Control DM Control: Glucose 90 mg/dL (74-106) D 10/31/20 18:25 Finger Stick Blood Glucose 148 Finger Stick Blood Glucose 148 Finger Stick Blood Glucose 152 Finger Stick Blood Glucose 152 Finger Stick Blood Glucose 152 Insulin Dosing: Reviewed (aspart per SS ordered - sensitive scale; note: uses U500 TID at home so likely fairly resistant to insulin) - Heart Failure/NE Heart Failure/NE: Troponin I 0.08 ng/mL (<0.06) H* 11/01/20 06:10 NT-Pro-B Natriuret Pep 165 pg/mL (<300) 11/01/20 06:10 EF%, JUAN CARLOS's, B-Blockers, Diuretics: Reviewed - BP Control BP Control: Blood Pressure 106/55 Blood Pressure 106/55 If elevated: Reviewed - Home Meds Home Med List reviewed: Intervened Relevent Home Meds Not ordered & why?: jardiance, metformin, u500 insulin (SS aspart ordered) - Current meds Current Medication Order Review: Reviewed (Iron Sucrose 200mg x1 this am, scope today; clopidogrel stopped per [facility] as length of therapy was only 6 mo which has lapsed)
--- NOTE | 2020-11-01 11:11 | W.COLOREPORT ---
Date of service: 11/01/20 Time of Service: 11:11 Colonoscopy Report Date of procedure: 11/01/20 Pre-op diagnosis general: BRBPR Post-op diagnosis procedure note: other (polyps) Surgeon: Zohra Zuleta Anesthesia Type: General:No Airway Estimated blood loss (mL): 0 Pathology: other Complications: None Disposition: same day Prep: Miralax/Dulcolax Retraction Time: 12 Procedure Description: After informed consent was obtained the patient was taken to the procedure room and placed in a left decubitous position. Monitors were applied and a time out was done. The patients name, date of , procedure, allergies to medications and metal in their body was reviewed. The patient was then sedated. Once sedated and comfortable a rectal exam was done. External exam was normal. Internal exam revealed a normal sphincter tone and no palpable masses. The scope was then introduced and retrofelexed. No internal hemorrhoids were identified. No fissures. There is some mild excoriation- but I think this is from the enemas. There are no signs of the rectal bleeding that was present yesterday. The scope was then advanced to the cecum w/ difficulty. There is a small polyp at 15 cm. This is removed with a cold biopsy forcep. There are no diverticula or AVMs noted. He does have a incomplete prep so lesions less than 5 mm may be overlooked. But there are no large masses. the TI and appendiceal orifice were identified. The prep was good. The scope was then slowly retracted over 12 minutes back into the rectum. The scope was removed and the patient was woken up and taken back to Same day surgery in stable condition. The patient tolerated the procedure well and there were no immediate complications. Follow up: The patient should follow up in 5 years unless they develop changes in bowel habits or other new gastrointestinal complaints.
--- NOTE | 2020-11-01 11:15 | W.PM.DS.N ---
Date of service: 11/01/20 Time of Service: 11:16 DS: Diagnosis Discharge Diagnosis (1) Elevated troponin: Status: Acute (2) Anemia due to blood loss, acute: Status: Acute (3) Rectal bleeding: Status: Acute (4) COPD (chronic obstructive pulmonary disease): Status: Chronic (5) Diabetes mellitus: Status: Chronic (6) Ischemic cardiomyopathy: Status: Chronic (7) Urinary retention: Status: Acute (8) DVT prophylaxis: Status: Acute (9) Adenomatous colon polyp: Status: Acute Discharge Plan Disposition Patient Disposition: HOME Condition: Stable Discharge Details Reason For Visit: Rectal Bleeding,on blood thinners,CHF,CAD Admit Date/Time: 10/31/20 15:39 Admit Provider: Zohra Zuleta Attending Provider: Zohra Zuleta Primary Care Provider: Jos Nance Home Meds and New Rx's Prescriptions: Continued ranolazine [Ranexa] 500 mg tablet extended release 12 hr 500 mg PO BID Qty: 60 RF: 11 nitroglycerin [Nitrostat] 0.4 mg tablet, sublingual 0.4 mg Sublingual Q5-15M MDD 3 tabs PRN (Reason: chest pain) Qty: 25 RF: 0 gabapentin 100 mg capsule 100 mg PO BID Qty: 180 RF: 3 pantoprazole 40 mg tablet,delayed release (DR/EC) 40 mg PO DAILY Qty: 90 RF: 4 metformin [Glucophage] 1,000 mg tablet 1,000 mg PO BID Qty: 180 RF: 4 metoprolol succinate 100 mg tablet extended release 24 hr 150 mg PO DAILY Qty: 135 RF: 3 rosuvastatin [Crestor] 40 mg tablet 40 mg PO DAILY Qty: 90 RF: 4 Spiriva Respimat 1.25 mcg/actuation mist 2 puff IH DAILY Qty: 12 RF: 3 budesonide-formoterol [Symbicort] 160-4.5 mcg/actuation HFA aerosol inhaler 2 puff Inhalation BID Qty: 1 RF: 3 albuterol sulfate [ProAir HFA] 90 mcg/actuation HFA aerosol inhaler 2 puff Inhalation Q4H PRN Qty: 3 RF: 4 aspirin [Aspirin Low-Strength] 81 MG tablet,chewable 81 mg PO DAILY RF: 0 (DME) lancets [OneTouch Delica Lancets] 1 EACH misc 1 ea Miscellaneous TID Qty: 100 RF: 5 (DME) blood-glucose meter [OneTouch Ultra2 Meter] 1 EACH kit 1 ea Miscellaneous DAILY Qty: 1 RF: 0 (DME) blood-glucose meter [OneTouch UltraMini] 1 EACH kit 1 ea Miscellaneous QID Qty: 1 RF: 0 amlodipine 2.5 mg tablet 2.5 mg PO DAILY RF: 0 (DME) pen needle, diabetic [Pen Needle] 31 gauge x 5/16 needle 1 ea Miscellaneous TID Qty: 100 RF: 11 isosorbide mononitrate 120 mg tablet extended release 24 hr 240 mg PO DAILY Qty: 180 RF: 4 (DME) OneTouch Ultra Blue Test Strip Strip See Dose Instructions .ROUTE .MEDSUPPLY Qty: 400 RF: 3 fluoxetine 20 mg capsule 20 mg PO DAILY Qty: 90 RF: 3 famotidine 20 mg tablet 20 mg PO HS RF: 0 ranolazine 500 mg tablet extended release 12 hr 500 mg PO BID RF: 0 Jardiance 25 mg tablet 25 mg PO DAILY RF: 0 Humulin R U-500 (Conc) Kwikpen 500 unit/mL (3 mL) insulin pen 500 unit SUBCUT TID RF: 0 Discharge Instructions Additional Instructions: DSU Colonoscopy Post-Op Instructions Instructions for Everyone who is given Anesthesia: For your safety, please do the following for the next twenty-four (24) hours: *Do Not operate a motor vehicle (car, truck, motorcycle, etc.) *Do Not drink alcoholic beverages or use any recreational drugs for the first 24 hours or while taking pain medications. The medications in your body may have a reaction that can be dangerous. *Do Not make any important decisions or sign any important papers. Findings: No signs of bleeding. So polyp noted adn removed stop Plavix No ASA for 3 days No NSAID;s lifelong Follow up: We will send a letter w/ the results of the polyp and when to repeat the scope- most likely 5yrs time. 1. No lifting over 20 pounds or strenuous activity for the first 24 hours after your procedure. After 24 hours there are no restrictions on your activity but you may feel fatigued for a few days. 2. After you arrive home you may have a light meal and return to your normal diet as you can tolerate it without feeling sick to your stomach. 3. You may have a bloated, gaseous feeling in your belly (abdomen) after a colonoscopy. Passing gas and belching will help. Walking or lying down on your left side with your knees flexed may relieve the discomfort. Call the office at [phone] (Office) or [phone] (Hospital) right away if you notice any of the following: a.Vomiting of blood or ?coffee ground stools?. b.Rectal bleeding 1Tbsp, blood clots or continuous bleeding. c.Severe belly (abdominal) pain. d.A hard distended belly (abdomen) and an inability to pass gas. 4. Please don?t expect to have a normal BM (bowel movement) for 2-3 days after your procedure. 5. If there are questions regarding the findings of your procedure, please contact your doctor 6. If you are unable to contact your doctor with a problem, contact the hospital at [phone]. 7. Continue all your regular medications unless directed otherwise. I understand the above instructions and have no questions. Signature of Patient or Adult Escort Name of Responsible Adult Escort Signature of Nurse Date/Time Activity:: see above Equipment/Supplies:: No Equipment Needed Diet:: Low Sodium DS: Summary Time Spent with Patient providing and/or coordinating discharge services: Less than 30 minutes Status at Discharge Functional status at discharge: independent ambulation Overall status at discharge: patient is progressing back to baseline Mental Status: mental status grossly normal Speech and Movement: speech and movement normal Mood: congruent mood Affect: normal affect Exam Psych Mental Status: mental status grossly normal Speech and Movement: speech and movement normal Mood: congruent mood Affect: normal affect DS: Data Vitals/I&O Vitals and I&O: Vital Signs Temperature 36.5 C 11/01/20 00:06 Temperature Source Temporal Artery Scan 11/01/20 00:06 Pulse 61 11/01/20 07:00 Pulse Rhythm Regular 11/01/20 08:48 Pulse 60 11/01/20 02:00 Respiratory Rate 17 11/01/20 02:00 Respiratory Effort 11/01/20 08:48 Respiratory Depth Shallow 11/01/20 08:48 Respiratory Pattern Normal 11/01/20 08:48 Blood Pressure 106/55 L 11/01/20 00:06 Blood Pressure Mean 68 11/01/20 00:00 Blood Pressure Position Supine 10/31/20 17:35 Pulse Oximetry 97 11/01/20 00:06 Oxygen Delivery Method Room Air 11/01/20 00:06 Oxygen Flow Rate 0 11/01/20 00:06 Pain Level 0 11/01/20 00:06 Intake & Output 10/31/20 10/31/20 11/01/20 11:59 23:59 11:59 Intake Total 1385 / 1385 707.5 / 707.5 Output Total 3100 / 3100 1959 Balance -1715 / -1715 -1252.5 / -1252.5 Weight 105.8 kg 104 kg Intake: IV 40 / 40 707.5 / 707.5 Oral 1345 / 1345 Output: Urine 3100 / 3100 1959 Other: Urine Color Pale Yellow Yellow Urine Appearance Clear Clear Urine Odor Normal None Comment 4 SCANS RANGING 175-385 OBTAINED Stool Characteristics Liquid Emesis Description None Voiding Methods Urinal Data Completed and Pending Labs on day of discharge: Labs from last 24 hours 11/01/20 11/01/20 10/31/20 06:10 06:10 18:25 WBC RBC Hgb 11.0 L 10.6 L Hct 36.4 L 34.4 L MCV MCH MCHC RDW Plt Count MPV Immature Gran % Neutrophils % Lymphocytes % Monocytes % Eosinophils % Basophils % Nucleated RBC % Absolute Neutrophils Absolute Lymphocytes Absolute Monocytes Absolute Eosinophils Absolute Basophils RBC Morphology Polychromasia Hypochromasia Poikilocytosis Anisocytosis Microcytosis PT INR APTT Sodium Potassium Chloride Carbon Dioxide Anion Gap BUN Creatinine Estimated GFR/1.73 m2 Glucose Calcium Magnesium 1.6 L Iron TIBC Transferrin % Sat Ferritin Total Bilirubin AST ALT Alkaline Phosphatase Troponin I 0.08 H* NT-Pro-B Natriuret Pep 165 Total Protein Albumin COVID-19 Source SARS-CoV-2 (PCR) Path Cons Comment Patient ABO/Rh Antibody Screen 10/31/20 10/31/20 10/31/20 18:25 18:25 16:25 WBC RBC Hgb Hct MCV MCH MCHC RDW Plt Count MPV Immature Gran % Neutrophils % Lymphocytes % Monocytes % Eosinophils % Basophils % Nucleated RBC % Absolute Neutrophils Absolute Lymphocytes Absolute Monocytes Absolute Eosinophils Absolute Basophils RBC Morphology Polychromasia Hypochromasia Poikilocytosis Anisocytosis Microcytosis PT INR APTT Sodium 139 Potassium 3.4 L Chloride 105 Carbon Dioxide 26.8 Anion Gap 7.2 BUN 19 H Creatinine 1.2 Estimated GFR/1.73 m2 >= 60.00 Glucose 90 D Calcium 8.8 Magnesium 1.9 Iron TIBC Transferrin % Sat Ferritin Total Bilirubin AST ALT Alkaline Phosphatase Troponin I 0.08 H* NT-Pro-B Natriuret Pep 237 Total Protein Albumin COVID-19 Source Nasal/Nares SARS-CoV-2 (PCR) Negative Path Cons Comment Patient ABO/Rh A Positive Antibody Screen NEGATIVE 10/31/20 10/31/20 10/31/20 13:55 13:55 13:55 WBC RBC Hgb Hct MCV MCH MCHC RDW Plt Count MPV Immature Gran % Neutrophils % Lymphocytes % Monocytes % Eosinophils % Basophils % Nucleated RBC % Absolute Neutrophils Absolute Lymphocytes Absolute Monocytes Absolute Eosinophils Absolute Basophils RBC Morphology Polychromasia Hypochromasia Poikilocytosis Anisocytosis Microcytosis PT 9.8 INR 1.0 APTT 21.6 Sodium Potassium Chloride Carbon Dioxide Anion Gap BUN Creatinine Estimated GFR/1.73 m2 Glucose Calcium Magnesium Iron 34 L TIBC 380 Transferrin % Sat 9 L Ferritin 6 L Total Bilirubin AST ALT Alkaline Phosphatase Troponin I NT-Pro-B Natriuret Pep Total Protein Albumin COVID-19 Source SARS-CoV-2 (PCR) Path Cons Comment Patient ABO/Rh Antibody Screen 10/31/20 10/31/20 13:55 13:55 WBC 5.76 RBC 4.73 Hgb 10.9 L Hct 35.1 L MCV 74.2 L MCH 23.0 L MCHC 31.1 L RDW 16.8 H Plt Count 272 MPV 11.9 H Immature Gran % 0.3 Neutrophils % 58.4 Lymphocytes % 28.1 Monocytes % 10.8 Eosinophils % 1.7 Basophils % 0.7 Nucleated RBC % 0 Absolute Neutrophils 3.36 Absolute Lymphocytes 1.62 Absolute Monocytes 0.62 Absolute Eosinophils 0.10 Absolute Basophils 0.04 RBC Morphology See Below Polychromasia Present Hypochromasia 1+ Poikilocytosis 1+ Anisocytosis 1+ Microcytosis 2+ PT INR APTT Sodium 140 Potassium 4.0 Chloride 105 Carbon Dioxide 25.5 Anion Gap 9.5 BUN 19 H Creatinine 1.5 H Estimated GFR/1.73 m2 48.77 Glucose 230 H Calcium 8.9 Magnesium Iron TIBC Transferrin % Sat Ferritin Total Bilirubin 0.4 AST 12 L ALT 21 Alkaline Phosphatase 73 Troponin I NT-Pro-B Natriuret Pep Total Protein 6.9 Albumin 3.5 COVID-19 Source SARS-CoV-2 (PCR) Path Cons Comment Pending Patient ABO/Rh Antibody Screen PFSH Medical History COPD (chronic obstructive pulmonary disease) 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 Works at [employer]
[2020-11-01] MEDS: amLODIPine 2.5 MG TAB PO (11:25)
[2020-11-01] MEDS: Tamsulosin 0.4 MG CAPCR PO (11:25)
[2020-11-01] MEDS: Gabapentin 100 MG CAP PO (11:25)
[2020-11-01] MEDS: FLUoxetine 20 MG CAP PO (11:25)
[2020-11-01] MEDS: Isosorbide Mononitrate 60 MG TABCR 240 MG PO (11:25)
--- NOTE | 2020-11-01 11:35 | W.ANESPOSTOP ---
Postoperative Evaluation Date, Time and Location Date Performed: 11/01/20 Time Performed: 11:35 Patient Location: Med/Surg Vital Signs Most Recent Imported Vital Signs: Most Recent Vital Signs Temp Pulse Resp BP Pulse Ox 36.5 C 61 17 106/55 L 97 11/01/20 00:06 11/01/20 07:00 11/01/20 02:00 11/01/20 00:06 11/01/20 00:06 Most Recent Manually Entered Vital Signs: Adult Blood Pressure: 110/63 Heart Rate: 51 Respirations: 18 Oxygen Saturation (%): 94 Temperature (C): 36 C Pain Score (0-10 Scale): 0 Pain Score Most Recent Pain Score: Most Recent Pain Score Pain Level 0 11/01/20 00:06 Assessment Mental Status: Awake (Alert & Oriented to Patient Baseline) Airway and Respiratory Function: Patent airway with normal (patient baseline) respiratory exam Cardiovascular Function: Hemodynamically Stable and Receiving care as an inpatient Hydration Status: Adequately Hydrated Nausea & Vomiting: No Nausea or Vomiting Pain: Pt. Denies Any Pain Peripheral Nerve Block: Patient did not receive a nerve block
== END 2020-11-01 13:52 | disposition home or self-care (01) | DRG 378 ==
LOC: ER 16:19 → ICU 17:23
PROVIDERS: Admitting Provider Surgery; Emergency Provider Physician Assistant; PCP Family Medicine; Visit Provider Surgery
PROC: 0DJD8ZZ Inspection of Lower Intestinal Tract, Via Natural or Artificial Opening Endoscopic (ICD-10-PCS; CPT 45378; principal; 2020-11-01 11:45)
DX: K62.5 Hemorrhage of anus and rectum (principal); D62 Acute posthemorrhagic anemia; D12.5 Benign neoplasm of sigmoid colon; J44.9 Chronic obstructive pulmonary disease, unspecified; Z79.4 Long term (current) use of insulin; I25.119 Atherosclerotic heart disease of native coronary artery with unspecified angina pectoris; F41.9 Anxiety disorder, unspecified; E87.6 Hypokalemia; E11.29 Type 2 diabetes mellitus with other diabetic kidney complication; R80.9 Proteinuria, unspecified; E11.65 Type 2 diabetes mellitus with hyperglycemia; E78.5 Hyperlipidemia, unspecified; I25.5 Ischemic cardiomyopathy; Z95.810 Presence of automatic (implantable) cardiac defibrillator; Z87.891 Personal history of nicotine dependence; R74.8 Abnormal levels of other serum enzymes; R33.9 Retention of urine, unspecified; Z95.5 Presence of coronary angioplasty implant and graft; Z95.1 Presence of aortocoronary bypass graft; Z20.822 Contact with and (suspected) exposure to COVID-19
CPT/HCPCS: 45380; 36415; 80048; 80053; 86850; 86900; 86901; 87635; 88305; 94640; 99285; 74174; 82728; 83540; 83550; 83735; 83880; 84484; 85014; 85018; 85025; 85610; 85730; 93005; 93010; J1756; J3490

== ENCOUNTER 2021-01-21 00:31 | Outpatient (CLI) | payer MEDICAID, SELFPAY ==
--- OUTSIDE RECORDS SUMMARY | 2021-01-21 00:35 | XMS_ITS ---
:1965 Author Care Team Providers Name Role Phone MAXIMINO PAUL MD Primary Care Provider [phone] Allergies Code Code System Name Reaction Severity Status Onset NKDA ? Medications Name Status Start Date Stop Date ? ? albuterol sulf 90 mcg/actuation breath activated powder inhaler, sensor Active ? Not available Inhale 2 puffs every 4 hours by inhalation route. amlodipine 2.5 mg tablet Active ? Not kenroy ilable Take 1 tablet every day by oral route. budesonide 180 mcg/actuation breath activated powder inhaler Act reji ? Not available Inhale 1 puff twice a day by inhalation route. empagliflozin 25 mg tablet Active ? Not a vailable Take 1 tablet every day by oral route. famotidine 20 mg tablet Active ? Not avai lable Take 1 tablet twice a day by oral route. fluoxetine 20 mg capsule Active ? Not kenroy ilable Take 1 capsule every day by oral route. gabapentin 100 mg capsule Active ? Not av ailable Take 1 capsule twice a day by oral route. Isosorbide Mononitrate CR 120 mg tablet,extended release Active ? Not available Take 2 tablets every day by oral route. Low Dose Aspirin 81 mg tablet,delayed release Active ? Not available Take 1 tablet every day by oral route. metformin 1,000 mg tablet Active ? Not av ailable Take 1 tablet twice a day by oral route. metformin 500 mg tablet Active ? Not avai lable Take 1 tablet twice a day by oral route. metoprolol succinate ER 100 mg capsule sprinkle, ext. release 24 hr Active ? Not available Take 1 capsule every day by oral route. nitroglycerin 0.4 mg sublingual tablet Active ? Not available Place 1 tablet by sublingual route. pantoprazole 40 mg tablet,delayed release Active ? Not available Take 1 tablet every day by oral route. ranolazine ER 500 mg tablet,extended release,12 hr Active ? Not available Take 1 tablet twice a day by oral route. rosuvastatin 20 mg tablet Active ? Not av ailable Take 1 tablet every day by oral route. Spiriva Respimat 2.5 mcg/actuation solution for inhalation Activ e ? Not available Inhale 2 puffs every day by inhalation route. tiotropium bromide 1.25 mcg/actuation mist for inhalation Active ? Not available Inhale 2 puffs every day by inhalation route. Problems Name Status Onset Date Source ? Diabetes Mellitus Active 07/19/2019 ? Hyperlipidemia Active 07/19/2019 ? Anxiety Active 07/19/2019 ? Tobacco User Active 07/19/2019 ? Myocardial Infarction Active 07/19/2019 ? Angina Pectoris Active 07/19/2019 ? Coronary Arteriosclerosis Active 07/19/2019 ? Generalized Ischemic Myocardial Dysfunction Unknown 07/01 ? Systolic Dysfunction Active 07/19/2019 ? 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 Chronic Obstructive Lung Disease Active 07/19/2019 ? Low Back Pain Active 07/19/2019 ? Headache Active 07/19/2019 ? Chest Pain Active 07/19/2019 ? Procedures None recorded. Results Lab Results None recorded. Past Encounters None recorded. Social History Tobacco Smoking Status Former Smoker (3 or more packs Note s: quit 2005 per a day) Vaccine List Vaccine Type influenza, injectable, quadrivalent 03/16/2019 pneumococcal polysaccharide PPV23 07/31/2016 Tdap 01/28/2012 Plan of Care Reminders Provider Appointments None ? ? recorded. Lab None ? ? recorded. Referral None ? ? recorded. Procedures None ? ? recorded. Surgeries None ? ? recorded. Imaging None ? ? recorded. Vitals Height Weight BMI Blood Pressure 177.8 cm 109.85 kg 34.7 kg/m2 104/67 mm[Hg]
--- NOTE | 2021-01-21 14:05 | DI.US_ITS ---
APPROVED REPORT EXAM: Comprehensive 2D, Doppler, and color-flow Echocardiogram Patient Location: Out-Patient Neurocritical Care Physician: Ena Bernal RDCS (AE) Indications: Chest pain due to myocardial ischemia Other Information Study Quality: Adequate Conclusion The left ventricle is mildly dilated. Wall thickness is normal. Estimated ejection fraction is 50%. There are segmental wall motion abnormalities noted Right ventricle is not well visualized. Device lead is noted in the right ventricle Normal left atrial size. Probably normal right atrial size, device lead noted The aortic valve is sclerotic. Number of leaflets could not be reliably determined. There is no sig nificant aortic stenosis There is moderate aortic regurgitation Mild mitral annular calcification. Mild mitral regurgitation Normal tricuspid valve with mild regurgitation Normal pulmonic valve with trace to mild regurgitation Dilated ascending aorta measuring 3.93 cm Wall motion Left Ventricle Left ventricle is mildly dilated. Left ventricular systolic function is mildly decreased. There is no rmal left ventricular wall thickness. Regional wall motion abnormalities are noted. There is no ventr icular septal defect visualized. LVEF is 50%. Right Ventricle Right ventricle is not well visualized. Right ventricular systolic function could not be assessed. Th e RVSP is 26.4 mmHg. Device lead is present in the right ventricle. Atria The left atrium size is normal. The right atrium size is normal. The interatrial septum is intact wit h no evidence for an atrial septal defect. Aortic Valve Moderate aortic valve sclerosis. Number of aortic valve leaflets could not be assessed. The aortic va lve is not well visualized. Aortic valve is calcified. The Aortic valve is sclerotic. Aortic valve is thickened but has adequate excursion. There is no aortic valvular stenosis. Moderate aortic regurgit ation. Mitral Valve Mild mitral annular calcification. No evidence of mitral valve stenosis. Mild mitral regurgitation. Tricuspid Valve The tricuspid valve is normal in structure. There is no tricuspid valve stenosis. Mild tricuspid regu rgitation. Pulmonic Valve The pulmonary valve is normal in structure. There is no pulmonic valvular stenosis. Trace to mild pul yo regurgitation. Great Vessels The aortic root is normal in size. The ascending aorta is moderately dilated.3.93 cm Aortic arch is n ormal in caliber. IVC is normal in size and collapses >50% with inspiration. Pericardium There is no pericardial effusion. 2D Dimensions IVSD d PLAX 0.83 cm M: 0.6-1.2 LV Vol A2C d MOD 174.4 mL LVPW d PLAX 0.89 cm M: 0.6 - 1.2 LV Vol A4C d MOD 197.4 mL LVID d PLAX 6.05 cm M: 4.2 - 5.8 LA vol/ BSA A2C s A-L 28.8 mL/m2 LVDs 4.35 cm M: 2.5 - 4.0 LA vol/ BSA A4C s A-L 33.2 mL/m2 Ao Root d 3.48 cm M: 3.1 - 3.7 LA Vol/ BSA Biplane s A-L 32.5 mL/m2 RA Area A4C 15.73 cm2 LA Area A4C s MOD 22.19 cm2 RA Vol/ BSA A4C s A-L 20.8 mL/m2 LA Area A2C s MOD 19.63 cm2 Ao Asc Diam d 3.93 cm M: 2.6 - 3.4 LV EF A4C MOD 50.1 % LV EF Teichholz 52.8 % LV EF A2C MOD 49.6 % LVEF (Peñaloza's) 48.21 % M: 52 - 72 LV EF Biplane MOD 48.2 % LV Volume 134.38 mL M: 62 - 150 SV 89.47 mL LV Volume Index 60.26 mL/m2 M: 34 - 74 SV Index 40.10 mL/m2 LV Vol Biplane MOD 185.6 mL FS 27.65 % M-Mode TAPSE 1.70 cm (M/F) >1.7 LV Diastology MV E' medial 0.068 (>0.07 m/s) E/A Ratio 1.0 LV E/e MED 9.30 (<14) MV E Vmax 0.64 (0.4-1.3 m/s) MV E' lateral 0.132 (>0.1 m/s) MV A Vmax 0.65 (0.4-1.3 m/s) LV E/e LAT 4.80 (<14) MV E/A Ratio 0.98 MV E/E' medial 9.31 MV E/E' lateral 4.83 Aortic Valve LVOT Area 3.37 cm2 AoV Area Vmax 2.13 cm2 LVOT Vmax 1.12 m/s AoV Area/ BSA (Vmax) 0.96 cm2/m2 LVOT Mean Anup. 0.87 m/s EFRAÍN Mean Anup. 2.18 cm2 LVOT Peak Grad 5.0 mmHg EFRAÍN Mean Anup. Index 0.98 cm2/m2 LVOT Mean Grad 3.2 mmHg AR DT 1912 msec LVOT VTI 0.266 m AR PHT 554 msec LVOT Diam s 2.05 cm AoV Vmax 1.77 m/s Velocity Ratio 0.63 AoV Mean Anup. 1.34 m/s AoV Peak Grad 12.5 mmHg LVOT SV 89.60 mL AoV Mean Grad 7.8 mmHg AoV VTI 0.403 m AoV Area VTI 2.22 cm2 AoV Area/ BSA (VTI) 1.00 cm/m2 Mitral Valve MV DT 244 (160-240 msec) MR Vmax 4.72 m/s MV PHT 71 msec MR VTI 1.494 m MV Area PHT 3.10 cm2 MR Peak Grad 89.0 mmHg MV VTI 0.202 m MR Mean Grad 64.9 mmHg MV Area VTI 4.44 (4.0-6.0 cm2) Pulmonary Valve PV Vmax 1.07 (0.5-1.5 m/s) RVOT Peak Gr. 1.81 mmHg PV Peak Grad 4.6 mmHg RVOT Mean Gr. 0.85 mmHg PV Mean Grad 2.3 mmHg RVOT VTI 0.148 m PV VTI 0.230 m RVOT Vmax 0.67 m/s Tricuspid Valve TR Peak Grad 23.4 mmHg TR Vmax 2.42 m/s RA Pressure 3.00 mmHg RVSP (TR) 26.4 mmHg
== END 2021-01-21 00:51 ==
PROVIDERS: PCP Family Medicine; Visit Provider Internal Medicine Cardiovascular Disease
DX: R07.9 Chest pain, unspecified (principal); I25.9 Chronic ischemic heart disease, unspecified; Z95.0 Presence of cardiac pacemaker; I08.3 Combined rheumatic disorders of mitral, aortic and tricuspid valves; I37.1 Nonrheumatic pulmonary valve insufficiency
CPT/HCPCS: 93306

== ENCOUNTER 2021-01-24 07:38 | Outpatient (CLI) | payer MEDICAID, SELFPAY ==
--- NOTE | 2021-01-24 15:45 | RT.EKG_ITS ---
APPROVED REPORT Exam: Resting ECG Reason for Exam: SVT Patient Location: O HR:71 bpm ECG Measurements Heart Rate 71 AXIS FL 164 P 48 QRSd 90 QRS 63 QT 384 T 85 QTc 417 Conclusion Sinus rhythm...normal P axis, V-rate 60- 99 Anterior infarct, old...Q >40mS, abnormal ST-T, V2-V5
== END 2021-01-24 07:39 | disposition home or self-care (01) ==
LOC: RT 07:41
PROVIDERS: PCP Family Medicine; Visit Provider Internal Medicine Cardiovascular Disease
DX: I47.1 Supraventricular tachycardia (principal)
CPT/HCPCS: 93005; 93010

== ENCOUNTER 2021-04-01 03:13 | Outpatient (CLI) | payer MEDICAID, SELFPAY ==
[2021-04-01 15:36] LABS: Abs Immature Grans 0.02 10^3/uL (0.0-0.06); Absolute Basophil Count 0.05 10^3/uL (0.0-0.2); Absolute Eosinophil Count 0.03 10^3/uL (0.0-0.7); Absolute Lymphocyte Count 1.23 10^3/uL (1.2-3.4); Absolute Neutrophil Count 7.49 10^3/uL (1.2-6.7); Basophils % 0.5; Eosinophils % 0.3; HCT 40.4 % (40.0-50.0); HGB 12.8 g/dL (13.5-17.5); Immature Grans % 0.2; Lymphocytes % 12.5; MCH 24.9 pg (27.0-33.0); MCHC 31.7 % (32.0-36.0); MCV 78.4 fL (80-95); MPV 11.6 fL (8.0-11.0); Monocytes % 10.2; Neutrophils % 76.3; Nucleated RBC 0 %; Platelet Count 269 10^3/uL (130-400); RBC 5.15 10^6/uL (4.36-5.78); RDW 15.7 % (11.8-14.1); RDW-SD 44.6 fL; WBC 9.82 10^3/uL (4.4-10.8)
[2021-04-01 15:55] LABS: PTT Activated 22.3 sec (21.0-27.5); Prothrombin Time 9.9 sec (9.3-11.0)
[2021-04-01 16:15] LABS: Anion Gap 9.9 mmol/L (3-11); BUN 16 mg/dL (7-18); CO2 27.1 mmol/L (21.0-32.0); CREATININE 1.3 mg/dL (0.70-1.30); Chloride 102 mmol/L (98-107); Estimated GFR 57.31 (mL/min/1.73m2); Glucose 182 mg/dL (74-106); Potassium 4.1 mmol/L (3.5-5.1); Sodium 139 mmol/L (136-145)
== END 2021-04-01 03:14 | disposition home or self-care (01) ==
PROVIDERS: PCP Family Medicine; Visit Provider Internal Medicine Cardiovascular Disease
DX: I25.9 Chronic ischemic heart disease, unspecified (principal); R07.89 Other chest pain; R94.39 Abnormal result of other cardiovascular function study; I25.5 Ischemic cardiomyopathy
CPT/HCPCS: 36415; 80048; 85025; 85610; 85730

== ENCOUNTER 2021-04-30 16:40 | Outpatient (REF) | payer MEDICAID, SELFPAY ==
[2021-05-02 10:17] LABS: COVID-19 RT-PCR UVMMC Result Negative (Negative)
== END 2021-04-30 16:41 | disposition home or self-care (01) ==
LOC: NCHCN 16:40
PROVIDERS: PCP Family Medicine; Visit Provider Family Medicine
DX: Z20.822 Contact with and (suspected) exposure to COVID-19 (principal)
CPT/HCPCS: U0003

== ENCOUNTER 2021-05-13 19:14 | Outpatient (CLI) | payer OTHER, SELFPAY ==
--- NOTE | 2021-05-13 14:45 | DI.RAD_ITS ---
Exam(s) XR RIBS RT W PA LAT CHEST EXAM: XR RIBS RT W PA LAT CHEST CLINICAL HISTORY: Blunt trauma right chest wall, acute chest wall pain, R07.89 TECHNIQUE: COMPARISON: CR XR PORTABLE CHEST AP from 07/11/2019 FINDINGS: PA and lateral chest and 4 additional views of the right ribs were obtained. There is a transvenous cardiac pacemaker in position. There is evidence of prior CABG surgery. The lungs are clear. There is no evidence of pleural effusion or pneumothorax. There is a fracture of the right 10th rib anteriorly. No additional rib fracture seen. IMPRESSION: Right 10th rib fracture. No additional findings. RADIATION DOSE DELIVERED: Total DLP
== END 2021-05-13 19:34 ==
PROVIDERS: PCP Family Medicine; Visit Provider Nurse Practitioner Family
DX: R07.89 Other chest pain (principal); S22.31XA Fracture of one rib, right side, initial encounter for closed fracture
CPT/HCPCS: 71046; 71100

== ENCOUNTER 2021-12-18 09:20 | Emergency (ER) | payer MEDICAID, SELFPAY ==
[2021-12-18] VITALS (58 sets, daily range): BP systolic 74–115; BP diastolic 45–78; PULSE 69–83; RESP 13–25; TEMP 36.3; O2SAT 88–98
--- NOTE | 2021-12-18 09:15 | RT.EKG_ITS ---
APPROVED REPORT Exam: Resting ECG Reason for Exam: CHEST PAIN Patient Location: E HR:78 bpm ECG Measurements Heart Rate 78 AXIS MO 143 P 31 QRSd 83 QRS 56 QT 374 T 84 QTc 426 Conclusion Sinus rhythm. No ST elevation
[2021-12-18 09:52] LABS: Abs Immature Grans 0.02 10^3/uL (0.0-0.06); Absolute Basophil Count 0.05 10^3/uL (0.0-0.2); Absolute Eosinophil Count 0.06 10^3/uL (0.0-0.7); Absolute Lymphocyte Count 1.53 10^3/uL (1.2-3.4); Absolute Monocyte Count 0.74 10^3/uL (0.1-0.8); Absolute Neutrophil Count 4.54 10^3/uL (1.2-6.7); Basophils % 0.7; Eosinophils % 0.9; HGB 13.1 g/dL (13.5-17.5); Immature Grans % 0.3; MCV 78 fL (80-95); MPV 11.5 fL (8.0-11.0); Monocytes % 10.7; Neutrophils % 65.4; Platelet Count 301 10^3/uL (130-400); RBC 5.23 10^6/uL (4.36-5.78); RDW 15.6 % (11.8-14.1); RDW-SD 43.9 fL; WBC 6.94 10^3/uL (4.4-10.8)
[2021-12-18 10:18] LABS: ALT 31 U/L (16-63); AST 19 U/L (15-37); Albumin 3.9 g/dL (3.4-5.0); Alkaline Phosphatase 70 U/L (46-116); Anion Gap 9.2 mmol/L (3-11); BUN 19 mg/dL (7-18); Bilirubin, Total 0.6 mg/dL (0.2-1.0); CO2 26.8 mmol/L (21.0-32.0); CREATININE 1.4 mg/dL (0.70-1.30); Calcium 8.8 mg/dL (8.5-10.1); Chloride 103 mmol/L (98-107); Estimated GFR 52.62 (mL/min/1.73m2); Glucose 183 mg/dL (74-106); Magnesium 1.4 mg/dL (1.8-2.4); NT-proBNP 140 pg/mL (<300); Potassium 4.2 mmol/L (3.5-5.1); Sodium 139 mmol/L (136-145); Total Protein 7.4 g/dL (6.4-8.2)
[2021-12-18] MEDS: Normal Saline 500 ML IV ×2 (10:20→13:01)
[2021-12-18 10:22] LABS: Troponin I 61 ng/L (<or=60)
[2021-12-18] MEDS: Magnesium Oxide 400 MG TAB PO (10:31)
--- NOTE | 2021-12-18 10:51 | W.ED.GENAD ---
Discharge Plan Disposition Patient Disposition: HOME Condition: Improving Discharge Details Clinical Impression: Hypotension due to drugs Primary Care Provider: Jos Nance ED Provider: Bob Chirinos Home Meds and New Rx's Prescriptions: Continued budesonide-formoterol [Symbicort] 160-4.5 mcg/actuation HFA aerosol inhaler 2 puff Inhalation BID Qty: 1 3RF fluoxetine 40 mg capsule 40 mg PO DAILY Qty: 90 3RF nitroglycerin [Nitrostat] 0.4 mg tablet, sublingual 0.4 mg Sublingual Q5-15M MDD 3 tabs PRN (Reason: chest pain) Qty: 25 0RF fluticasone propionate 50 mcg/actuation spray,suspension 2 spray intranasal DAILY Qty: 9.9 5RF Rx Instructions: administer into each nostril (DME) pen needle, diabetic [Pen Needle] 31 gauge x 5/16 needle 1 ea Miscellaneous TID Qty: 100 11RF Rx Instructions: inject TID amlodipine 10 mg tablet 10 mg PO DAILY Qty: 90 3RF Jardiance 25 mg tablet 25 mg PO DAILY Qty: 90 3RF gabapentin 100 mg capsule 100 mg PO BID Qty: 180 3RF metformin 1,000 mg tablet 1,000 mg PO BID Qty: 180 4RF pantoprazole 40 mg tablet,delayed release (DR/EC) 40 mg PO DAILY Qty: 90 4RF rosuvastatin [Crestor] 40 mg tablet 40 mg PO DAILY Qty: 90 4RF Spiriva Respimat 1.25 mcg/actuation mist 2 puff IH DAILY Qty: 12 3RF albuterol sulfate [ProAir HFA] 90 mcg/actuation HFA aerosol inhaler 2 puff Inhalation Q4H PRN Qty: 3 4RF metoprolol succinate 25 mg tablet extended release 24 hr 25 mg PO DAILY Qty: 90 3RF Rx Instructions: total 125 mg/day (taken with a 100 mg tab) Rybelsus 14 mg tablet 14 mg PO DAILY Qty: 90 3RF (DME) FreeStyle Carlos 14 Day Sensor Kit See Rx Instructions .ROUTE .MEDSUPPLY Qty: 2 11RF Rx Instructions: As directed aspirin [Aspirin Low-Strength] 81 MG tablet,chewable 81 mg PO DAILY (DME) lancets [OneTouch Delica Lancets] 1 EACH misc 1 ea Miscellaneous TID Qty: 100 Rx Instructions: diabetes 250.00 (DME) blood-glucose meter [OneTouch Ultra2 Meter] 1 EACH kit 1 ea Miscellaneous DAILY Qty: 1 (DME) blood-glucose meter [OneTouch UltraMini] 1 EACH kit 1 ea Miscellaneous QID Qty: 1 ranolazine [Ranexa] 500 mg tablet extended release 12 hr 500 mg PO BID Qty: 60 11RF (DME) FreeStyle Carlos 14 Day [place]et Misc See Rx Instructions .ROUTE .MEDSUPPLY Qty: 1 0RF Rx Instructions: As directed famotidine 20 mg tablet 20 mg PO HS Qty: 90 3RF Humulin R U-500 (Conc) Kwikpen 500 unit/mL (3 mL) insulin pen 25 - 50 unit SUBCUT TID Qty: 27 3RF metoprolol succinate 100 mg tablet extended release 24 hr 100 mg PO DAILY Qty: 90 4RF (DME) blood sugar diagnostic Strip See Dose Instructions .ROUTE .MEDSUPPLY Qty: 400 3RF Dose Instruction: test daily Rx Instructions: test 4x/day ranolazine 500 mg tablet extended release 12 hr 500 mg PO BID Label Comments: TAKE ONE TABLET BY MOUTH TWICE A DAY Held tadalafil 20 mg tablet 20 mg PO DAILY PRN (Reason: sexual activity) Qty: 30 3RF Hold Instructions: Please hold this medication until you discuss this medication with your primary care provider Rx Instructions: administer approximately 30min before sexual activity; do not use more than 1 dose per 24hrs isosorbide mononitrate 120 mg tablet extended release 24 hr 240 mg PO DAILY Qty: 180 4RF Hold Instructions: Resume on 12/20/21. Rx Instructions: hold if going to use sildenafil Discharge Instructions Instructions: Hypotension (ED) Additional Instructions: Please follow-up with Dr. Michaels to further discuss your medication as I feel your symptoms today have been caused by medication reaction. Cardiology also recommended that you contact their office for discussion of any further symptoms that you are having. As discussed please hold your isosorbide tomorrow morning and monitor your blood pressure. If you have any new or worsening symptoms please return immediately to the emergency Stand Alone Forms: Work Release Referrals: Jos Nance MD [Primary Care Provider] - Discharge Data Discharge Date/Time-TO BE ENTERED AT DEPARTURE: 12/18/21 14:39 Medical Decision Making Patient presenting to the emergency department for chief complaint of chest pain, shortness of breath, and near syncope. Patient reports while at work this morning when bending over and standing up he became dizzy and lightheaded almost to the point of passing out but did not pass out. Patient has significant cardiac history of cardiomyopathy, NSTEMI, defibrillator, COPD, diabetes, CAD. Patient does state that he is scheduled for both a stress test and a pulmonary function test at [place] within the next couple weeks. Patient states chest pain that has been long and ongoing with multiple work-ups that have been negative. Patient denies any sensation of his pacemaker firing. Physical exam is unremarkable for any acute findings. We will plan on standard cardiac work-up including chest CTA due to shortness of breath and near syncope along with chest pain, plan will give patient fluid bolus due to slight hypotension noted on initial presentation and exam. We will give patient 500 mL bolus of normal saline Please see physician interpretation for full interpretation of EKG but patient is in sinus rhythm with a rate of 78 and no acute STEMI findings are noted. Labs were reviewed and CBC showed a slightly low hemoglobin at 13.1 but is at patient's baseline, BUN is 19 creatinine 1.4 with GFR 52 which is near patient's baseline, glucose is 183 and magnesium 1.4. Will give oral repletion of mag. Patient's initial troponin was 61 and BNP of 140. We will plan on repeating patient's troponin and EKG. Interrogation of defibrillator shows no events. Patient remained slightly hypotensive and will give additional 500 mL. Patient reassessed and stated full resolution of chest pain and shortness of breath Repeat EKG shows sinus rhythm with a rate of 72 and no acute STEMI. Please see physician interpretation for full interpretation of the EKG. second troponin shows Trop. level of 51 which I feel is reassuring. Paged cardiology to discuss patient's hypertension and potentially some medication changes. Pending speaking with cardiology patient did state that he took 2 Viagra yesterday evening. I feel this is a significant contributor to patient's symptoms. Did speak with [facility] cardiology who recommended holding patient's Indur tomorrow morning and following up with primary care provider. They also agreed to have patient's stop Viagra or to at least hold Indur for 24 hours after Viagra. Discussed all this with patient along with discharge instructions and close monitoring of symptoms. 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 After discussion of diagnosis and plan of care patient has no further needs, questions, or concerns and states clear understanding to return to the emergency department for any worsening symptoms. This documentation was generated using UAV Navigationation system, please disregard any oddities of phrase or misspellings. Imaging Data Radiologic Study: Attestation: I personally reviewed and interpreted this imaging study as follows: Imaging: CT Scan Radiologist's impression: FINDINGS: Pulmonary Arteries: No evidence of filling defect to suggest pulmonary emboli. Tracheobronchial tree: Patent where visualized. Mediastinum and Kate: No dominant adenopathy or fluid collection. Pulmonary parenchyma: Dependent changes. No consolidation or dominant measurable mass. Pleura: No effusion or pneumothorax. Heart: The heart is not dilated. Pacemaker. Coronary artery stents. Prior CABG. Aorta: Thoracic aorta non-dilated. No aneurysm. No dissection. Upper abdomen: Unremarkable. Bones: Unremarkable for age.Sternal wires IMPRESSION: No evidence of pulmonary embolism or other acute abnormality. HPI General Mode of arrival: ambulatory. Date/Time Provider Initiated Documentation: 12/18/21 09:27. Limitations to Documentation: no limitations. Information obtained by: patient, family and RN notes reviewed. History of Present Illness 56 year old M presents to the emergency department with the chief complaint of Near syncope, chest pain, short, described as mild, with intensity rated at 2. Quality is described as other (Substernal), and is localized to the chest. Patient reports no radiation. Patient started experiencing this month(s) and it has been intermittent. Other factors that worsen symptoms (Positioned) . Patient notes shortness of breath; denies diaphoresis, fever/chills, headaches and weakness. Patient did receive the following treatments prior to arrival, none Related Data Home Medications Medication Instructions Recorded Confirmed aspirin 81 mg chewable tablet 81 mg PO DAILY 03/27/13 12/18/21 (Aspirin Low-Strength) lancets 33 gauge (OneTouch Delica #100 ea 03/26/14 12/18/21 Lancets) blood-glucose meter ([employer] ##1 01/22/16 12/18/21 Ultra2 Meter kit) blood-glucose meter (OneTouch ##1 05/29/16 12/18/21 UltraMini kit) budesonide-formoterol HFA 160 2 puff inhalation BID ##1 07/05/19 12/18/21 mcg-4.5 mcg/actuation aerosol inhaler (Symbicort) ranolazine 500 mg tablet,extended 500 mg PO BID 10/31/20 12/18/21 release,12 hr isosorbide mononitrate 120 mg 240 mg PO DAILY #180 tabs 11/13/20 12/18/21 tablet,extended release 24 hr ranolazine 500 mg tablet,extended 500 mg PO BID #60 tabs 01/16/21 12/18/21 release,12 hr (Ranexa) flash glucose scanning reader #1 ea 01/27/21 12/18/21 ([employer] Carlos 14 Day Olivet) famotidine 20 mg tablet 20 mg PO HS #90 tabs 03/18/21 12/18/21 insulin regular hum U-500 conc 500 25 - 50 unit (0.05 - 0.1 mL) 04/29/21 12/18/21 unit/mL(3 mL) subcut pen (Humulin subcut TID #27 mL R U-500 (Conc) Insulin Kwikpen) fluoxetine 40 mg capsule 40 mg PO DAILY #90 caps 04/30/21 12/18/21 fluticasone propionate 50 2 spray intranasal DAILY #9.9 grams 04/30/21 12/18/21 mcg/actuation nasal spray,suspension nitroglycerin 0.4 mg sublingual 0.4 mg sublingual Q5-15M PRN chest 04/30/21 12/18/21 tablet (Nitrostat) pain #25 tab-caps pen needle, diabetic 31 gauge x #100 ea 04/30/21 12/18/2109/15 (Pen Needle) albuterol sulfate 90 mcg/actuation 2 puff inhalation Q4H PRN ##3 08/06/21 12/18/21 aerosol inhaler (ProAir HFA) amlodipine 10 mg tablet 10 mg PO DAILY #90 tabs 08/06/21 12/18/21 empagliflozin 25 mg tablet 25 mg PO DAILY #90 tabs 08/06/21 12/18/21 (Jardiance) gabapentin 100 mg capsule 100 mg PO BID #180 tab-caps 08/06/21 12/18/21 metformin 1,000 mg tablet 1,000 mg PO BID #180 tab-caps 08/06/21 12/18/21 pantoprazole 40 mg tablet,delayed 40 mg PO DAILY #90 tab-caps 08/06/21 12/18/21 release rosuvastatin 40 mg tablet (Crestor) 40 mg PO DAILY #90 tab-caps 08/06/21 12/18/21 tiotropium bromide 1.25 2 puff inhalation DAILY #12 grams 08/06/21 12/18/21 mcg/actuation mist for inhalation (Spiriva Respimat) metoprolol succinate 100 mg 100 mg PO DAILY #90 tabs 09/09/21 12/18/21 tablet,extended release 24 hr blood sugar diagnostic #400 ea 09/30/21 12/18/21 flash glucose sensor (Penumbrayle #2 ea 11/12/21 12/18/21 Carlos 14 Day Sensor kit) metoprolol succinate 25 mg 25 mg PO DAILY #90 tabs 11/12/21 12/18/21 tablet,extended release 24 hr semaglutide 14 mg tablet (Rybelsus) 14 mg PO DAILY #90 tabs 11/12/21 12/18/21 tadalafil 20 mg tablet 20 mg PO DAILY PRN sexual activity 11/12/21 12/18/21 #30 tabs Previous Rx's Medication Instructions Recorded budesonide-formoterol HFA 160 2 puff inhalation BID ##1 07/05/19 mcg-4.5 mcg/actuation aerosol inhaler (Symbicort) isosorbide mononitrate 120 mg 240 mg PO DAILY #180 tabs 11/13/20 tablet,extended release 24 hr ranolazine 500 mg tablet,extended 500 mg PO BID #60 tabs 01/16/21 release,12 hr (Ranexa) flash glucose scanning reader #1 ea 01/27/21 (Penumbr[employer] Carlos 14 Day Olivet) famotidine 20 mg tablet 20 mg PO HS #90 tabs 03/18/21 insulin regular hum U-500 conc 500 25 - 50 unit (0.05 - 0.1 mL) 04/29/21 unit/mL(3 mL) subcut pen (Humulin subcut TID #27 mL R U-500 (Conc) Insulin Kwikpen) fluoxetine 40 mg capsule 40 mg PO DAILY #90 caps 04/30/21 fluticasone propionate 50 2 spray intranasal DAILY #9.9 grams 04/30/21 mcg/actuation nasal spray,suspension nitroglycerin 0.4 mg sublingual 0.4 mg sublingual Q5-15M PRN chest 04/30/21 tablet (Nitrostat) pain #25 tab-caps pen needle, diabetic 31 gauge x #100 ea 04/30/21 5/16 (Pen Needle) albuterol sulfate 90 mcg/actuation 2 puff inhalation Q4H PRN ##3 08/06/21 aerosol inhaler (ProAir HFA) amlodipine 10 mg tablet 10 mg PO DAILY #90 tabs 08/06/21 empagliflozin 25 mg tablet 25 mg PO DAILY #90 tabs 08/06/21 (Jardiance) gabapentin 100 mg capsule 100 mg PO BID #180 tab-caps 08/06/21 metformin 1,000 mg tablet 1,000 mg PO BID #180 tab-caps 08/06/21 pantoprazole 40 mg tablet,delayed 40 mg PO DAILY #90 tab-caps 08/06/21 release rosuvastatin 40 mg tablet (Crestor) 40 mg PO DAILY #90 tab-caps 08/06/21 tiotropium bromide 1.25 2 puff inhalation DAILY #12 grams 08/06/21 mcg/actuation mist for inhalation (Spiriva Respimat) metoprolol succinate 100 mg 100 mg PO DAILY #90 tabs 09/09/21 tablet,extended release 24 hr blood sugar diagnostic #400 ea 09/30/21 flash glucose sensor (FreeStyle #2 ea 11/12/21 Carlos 14 Day Sensor kit) metoprolol succinate 25 mg 25 mg PO DAILY #90 tabs 11/12/21 tablet,extended release 24 hr semaglutide 14 mg tablet (Rybelsus) 14 mg PO DAILY #90 tabs 11/12/21 tadalafil 20 mg tablet 20 mg PO DAILY PRN sexual activity 11/12/21 #30 tabs Allergies Allergy/AdvReac Type Severity Reaction Status Date / Time semaglutide [From Rybelsus] AdvReac Intermediate Diarrhea Verified 12/18/21 09:30 General Stated Complaint: Chest Pain CAMERON: 2 Review of Systems Constitutional Constitutional: Denies chills, Denies fever(s) and Denies malaise Eyes Eyes: Denies change in vision ENT Ears, Nose, Mouth, and Throat: Reports dizziness (With position) Cardiovascular Cardiovascular: Reports as per HPI, Reports chest pain, Denies chest pain with activity, Denies syncope, Denies irregular heart rhythm, Denies leg edema, Reports lightheadedness, Denies palpitations, Reports dyspnea and Reports dyspnea on exertion Respiratory Respiratory: Denies cough, Denies hemoptysis, Reports dyspnea and Reports dyspnea on exertion Gastrointestinal Gastrointestinal: Denies abdominal pain, Denies hematochezia, Denies diarrhea, Denies nausea, Denies vomiting and Denies hematemesis Genitourinary Genitourinary: Denies urinary frequency Musculoskeletal Musculoskeletal: Denies joint swelling Neurologic Neurologic: Reports dizziness (With position) and Denies syncope Psychiatric Psychiatric: Denies anxiety Endocrine Endocrine: Denies cold intolerance, Denies heat intolerance and Denies palpitations PFSH All Active Problems (Updated 12/18/21 @ 14:20 by Bob Chirinos NP) Hypotension due to drugs (Acute) Right rib fracture (Acute) Acute chest wall pain (Acute) Allergic sinusitis (Acute) Tubular adenoma (Acute ~10/2020) DVT prophylaxis (Acute) Urinary retention (Acute) Cardiac defibrillator in place (Acute) Elevated troponin (Acute) Anemia due to blood loss, acute (Acute) Rectal bleeding (Acute) Ischemic cardiomyopathy (Chronic) Non-ST elevated myocardial infarction (non-STEMI) (Acute) Chest pain (Acute) Chest pain (Acute) Acute non-ST elevation myocardial infarction (NSTEMI) (Acute) COPD (chronic obstructive pulmonary disease) (Chronic) Diabetes mellitus (Chronic) better Coronary artery 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 (Acute 02/08/15) Acute bilateral low back pain with right-sided sciatica (Acute) Sinus headache (Acute) Low blood sugar (Acute) he will continue to dose reduce insulin to avoid low sugars History of intravascular stent placement (Acute) Anxiety (Chronic) seems c/p may be somatic; better w/ SSRI Type II diabetes mellitus, uncontrolled (Acute) add a bedtime dose of U-500--start at 10 units and increase by 1 unit each night until sugars in the morning are around 130-140 continue other dosing as is for now Systolic dysfunction (Acute 04/09/16) Panlobular emphysema (Acute 06/19/15) Old myocardial infarction (Acute) Hyperlipidemia (Acute 07/12/12) History of tobacco use (Acute) Chest pain (Acute 03/20/13) Unstable angina (Acute 03/20/13) Coronary artery disease (Acute 03/20/13) Hyperlipidemia (Chronic) Surgical History History of colonoscopy (~10/2020) S/P CABG (coronary artery bypass graft) Stent placement x 2 Social History Smoking/Tobacco Use Status: Former Tobacco Use Smoking risk assessment performed?: Yes Alcohol Intake: current Alcohol Intake frequency: holidays/special occasions only Drug use: Never Substance use type: does not use Do you feel safe at home: Yes Do you feel safe in your relationship?: Yes Additional Social history: Lives with . Works at [employer] Exam Const General: cooperative, healthy appearing, comfortable, no acute distress, not diaphoretic and not ill appearing Nutritional Appearance: average body habitus Orientation: alert, awake and oriented x3 Limitations: mental status not altered Neck Neck: normal visual inspection, full ROM, trachea midline, supple and no anterior neck swelling Thyroid: thyroid normal Carotids: normal carotid upstroke and no bruits Chest Chest: normal inspection of the chest Resp Effort & Inspection: normal respiratory effort and able to speak in complete sentences Auscultation: clear to auscultation bilaterally Cardio Jugular venous pressure: no JVD Palpation: normal PMI Rate: regular rate Rhythm: regular rhythm Heart Sounds: S1 normal, S2 normal, no click, no gallops, no murmurs and no rubs Bruits: no abdominal aortic bruits and no carotid bruits Pulses: radial pulses present bilaterally 2+ GI Inspection: normal to inspection Palpation: soft, no aortic enlargement, no pulsatile masses and nontender Auscultation: normal bowel sounds Skin General skin exam: no rashes or lesions noted Neuro General: patient alert, patient awake, patient oriented x3, tone normal and moves all extremities Course Vital Signs Vital signs: Vital Signs Temperature 36.3 C L 12/18/21 09:25 Pulse 76 12/18/21 09:25 Respiratory Rate 18 12/18/21 09:25 Blood Pressure 102/78 12/18/21 09:25 Pulse Oximetry 98 12/18/21 09:25 Temperature 36.3 C L 12/18/21 09:25 Temperature Source Temporal Artery Scan 12/18/21 09:25 Pulse 75 12/18/21 10:01 Pulse 74 12/18/21 10:10 Respiratory Rate 18 12/18/21 10:10 Respiratory Effort 12/18/21 09:51 Respiratory Depth Normal 12/18/21 09:51 Respiratory Pattern Normal 12/18/21 09:51 Blood Pressure 98/60 L 12/18/21 10:01 Blood Pressure Mean 68 12/18/21 10:01 Blood Pressure Position Sitting 12/18/21 09:25 Pulse Oximetry 92 12/18/21 10:10 Oxygen Delivery Method Room Air 12/18/21 09:25 Oxygen Flow Rate 0 12/18/21 09:25 Pain Level 1 12/18/21 09:44 Lab/Test Results Lab/Test Results: Laboratory Tests Range/Units 12/18/21 12/18/21 12/18/21 09:30 09:45 09:45 WBC (4.4-10.8) 10^3/uL 6.94 RBC (4.36-5.78) 10^6/uL 5.23 Hgb (13.5-17.5) g/dL 13.1 L Hct (40.0-50.0) % 41.0 MCV (80-95) fL 78 L MCH (27.0-33.0) pg 25.0 L MCHC (32.0-36.0) % 32.0 RDW (11.8-14.1) % 15.6 H Plt Count (130-400) 10^3/uL 301 MPV (8.0-11.0) fL 11.5 H Immature Gran % 0.3 Neutrophils % 65.4 Lymphocytes % 22.0 Monocytes % 10.7 Eosinophils % 0.9 Basophils % 0.7 Nucleated RBC % (0.0-0.3) % 0.0 Absolute Neutrophils (1.2-6.7) 10^3/uL 4.54 Absolute Lymphocytes (1.2-3.4) 10^3/uL 1.53 Absolute Monocytes (0.1-0.8) 10^3/uL 0.74 Absolute Eosinophils (0.0-0.7) 10^3/uL 0.06 Absolute Basophils (0.0-0.2) 10^3/uL 0.05 D-Dimer Cancelled Sodium (136-145) mmol/L 139 Potassium (3.5-5.1) mmol/L 4.2 Chloride (98-107) mmol/L 103 Carbon Dioxide (21.0-32.0) mmol/L 26.8 Anion Gap (3-11) mmol/L 9.2 BUN (7-18) mg/dL 19 H Creatinine (0.70-1.30) mg/dL 1.4 H Estimated GFR/1.73 m2 (mL/min/1.73m2) 52.62 Glucose (74-106) mg/dL 183 H Calcium (8.5-10.1) mg/dL 8.8 Magnesium (1.8-2.4) mg/dL 1.4 L Total Bilirubin (0.2-1.0) mg/dL 0.6 AST (15-37) U/L 19 ALT (16-63) U/L 31 Alkaline Phosphatase (46-116) U/L 70 Troponin I (<or=60) ng/L 61 H NT-Pro-B Natriuret Pep (<300) pg/mL 140 Total Protein (6.4-8.2) g/dL 7.4 Albumin (3.4-5.0) g/dL 3.9 PAWSS Have you Been Recently Intoxicated or Drunk Within the Last 30 days?: No Have you Ever Experienced Previous Episodes of Alcohol Withdrawal?: No Have you ever Experienced Withdrawal Seizures?: No Have you ever Experienced Delirium Tremens(DT)s?: No Have you ever undergone Alcohol Rehabilitation Treatment (i.e, inpt ot outpatient treatment programs)?: No Have you ever Experienced Blackouts?: No Have you ever Combined Alcohol with other Downers within the last 90 days?: No Have you ever Combined Alcohol with any other Substance of Abuse during the last 90 days?: No Positive Blood Alcohol level on Presentation? [PCS.BAL]: No Evidence of Increased Autonomic Activity (i.e. HR>120, tremor, sweating, agitation, nausea)?: No Result: 0
--- NOTE | 2021-12-18 11:25 | DI.CT_ITS ---
Exam(s) CT CHEST PE CTA EXAM: CT CHEST PE CTA CLINICAL HISTORY: Shortness of breath, chest pain, near syncope. TECHNIQUE: Imaging Protocol: Axial CT angiography was performed with multi-slice acquisition and mu lti-planar reconstructions as well as axial, coronal and sagittal MIP reconstructions. CONTRAST MATERIAL: Intravenous: Omnipaque 350 Contrast volume:82 ml COMPARISON: CT CT ABDOMEN PELVIS CTA from 10/31/2020 CR XR RIBS RT W PA LAT CHEST from 05/13/2021 FINDINGS: Pulmonary Arteries: No evidence of filling defect to suggest pulmonary emboli. Tracheobronchial tree: Patent where visualized. Mediastinum and Kate: No dominant adenopathy or fluid collection. Pulmonary parenchyma: Dependent changes. No consolidation or dominant measurable mass. Pleura: No effusion or pneumothorax. Heart: The heart is not dilated. Pacemaker. Coronary artery stents. Prior CABG. Aorta: Thoracic aorta non-dilated. No aneurysm. No dissection. Upper abdomen: Unremarkable. Bones: Unremarkable for age.Sternal wires IMPRESSION: No evidence of pulmonary embolism or other acute abnormality. RADIATION DOSE DELIVERED: 464.82mGy.cm Total DLP DATA REPOSITORY: All CT scans at this facility are submitted to the National Radiology Data Registry (NRDR) Dose Index Registry (DIR) with the [employer] (ACR). RADIATION OPTIMIZATION: All CT scans at this facility use at least one of these dose optimization te chniques: automated exposure control; mA and/or kV adjustment per patient size (includes targeted exa ms where dose is matched to clinical indication); or iterative reconstruction.
--- NOTE | 2021-12-18 12:30 | RT.EKG_ITS ---
APPROVED REPORT Exam: Resting ECG Reason for Exam: chest pain Patient Location: E HR:72 bpm ECG Measurements Heart Rate 72 AXIS MO 151 P 26 QRSd 85 QRS 18 QT 402 T 84 QTc 439 Conclusion Sinus rhythm...normal P axis AnteriorQ >40mS, abnormal ST-T, V2-V5
[2021-12-18] MEDS: Omnipaque 350 MG/ML 100 ML BTL IJ (12:46)
[2021-12-18 13:12] LABS: Troponin I 51 ng/L (<or=60)
--- NOTE | 2021-12-19 11:06 | CMACTNOTE_ITS ---
- If Service Date Differs Date of service: 12/19/21 Time of Service: 11:06 Care Management Activity Note Rajendra is seen in the ED for hypotension and chest pain. At the request of ED provider, JEROD coordinates a referral to Dr. Michaels, [facility], to assist Rajendra in obtaining a follow up appointment. He has Medicaid for insurance.
== END 2021-12-18 14:39 | disposition home or self-care (01) ==
PROVIDERS: Emergency Provider Nurse Practitioner Family; PCP Family Medicine
DX: I95.2 Hypotension due to drugs (principal); T46.7X5A Adverse effect of peripheral vasodilators, initial encounter; J44.9 Chronic obstructive pulmonary disease, unspecified; E11.9 Type 2 diabetes mellitus without complications; Z87.891 Personal history of nicotine dependence
CPT/HCPCS: 71275; 80053; 93005; 96360; 96361; 99285; 83735; 83880; 84484; 85025; 85379; 93010; 99284; J3490

== ENCOUNTER 2022-05-26 13:23 | Outpatient (REF) | payer MEDICAID, SELFPAY ==
[2022-05-26 21:53] LABS: COMMENT (LAB VIEW ONLY) 54.32 mg/dL; Microalb ug/mg Crea 10.1 ug/mg Cr
== END 2022-05-26 13:24 | disposition home or self-care (01) ==
LOC: LBN 13:23
PROVIDERS: PCP Family Medicine; Visit Provider Family Medicine
DX: E11.9 Type 2 diabetes mellitus without complications (principal)
CPT/HCPCS: 82043; 82570

== ENCOUNTER 2022-07-15 14:48 | Outpatient (CLI) | payer MEDICAID, SELFPAY ==
--- NOTE | 2022-07-15 14:45 | RT.EKG_ITS ---
APPROVED REPORT Exam: Resting ECG Reason for Exam: SOB Patient Location: O HR:68 bpm ECG Measurements Heart Rate 68 AXIS SD 150 P 61 QRSd 94 QRS 71 QT 423 T 82 QTc 450 Conclusion Sinus rhythm...normal P axis, V-rate 50- 99 Borderline low voltage, extremity leads...all extremity leads <0.6mV Anteroseptal infarct, old...Q >40mS, V1-V2
== END 2022-07-15 14:49 | disposition home or self-care (01) ==
LOC: DI.CM 14:50
PROVIDERS: PCP Family Medicine; Visit Provider Family Medicine
DX: R06.02 Shortness of breath (principal); R07.9 Chest pain, unspecified; R94.31 Abnormal electrocardiogram [ECG] [EKG]; I25.2 Old myocardial infarction
CPT/HCPCS: 93010

== ENCOUNTER 2022-08-25 07:35 | Emergency (ER) | payer MEDICAID, SELFPAY ==
[2022-08-25] VITALS (51 sets, daily range): BP systolic 90–111; BP diastolic 55–77; PULSE 59–82; RESP 10–23; TEMP 36.6; O2SAT 94–99
--- NOTE | 2022-08-25 07:30 | RT.EKG_ITS ---
APPROVED REPORT Exam: Resting ECG Reason for Exam: chest pain Patient Location: E HR:67 bpm ECG Measurements Heart Rate 67 AXIS AL 154 P 32 QRSd 84 QRS 40 QT 383 T 82 QTc 405 Conclusion Sinus rhythm...normal P axis, V-rate 60- 99 Physician: minimal anterior elevation, but unchanged from prior ekg. no stemi
--- NOTE | 2022-08-25 08:08 | ED.GENADUL_ITS ---
Discharge Plan Disposition Patient Disposition: Home Condition: Improving Discharge Details Clinical Impression: Chest pain, Acute chest wall pain Primary Care Provider: Jos Nance ED Provider: Sesar Rust Home Meds and New Rx's Prescriptions: New naproxen [EC-Naproxen] 375 mg tablet,delayed release (DR/EC) 375 mg PO BID Qty: 20 0RF Continued amlodipine 10 mg tablet 10 mg PO DAILY Qty: 90 3RF Jardiance 25 mg tablet 25 mg PO DAILY Qty: 90 3RF metformin 1,000 mg tablet 1,000 mg PO BID Qty: 180 4RF metoprolol succinate 100 mg tablet extended release 24 hr 100 mg PO DAILY Qty: 90 4RF nitroglycerin [Nitrostat] 0.4 mg tablet, sublingual 0.4 mg Sublingual Q5-15M MDD 3 tabs PRN (Reason: chest pain) Qty: 25 0RF metoprolol succinate 25 mg tablet extended release 24 hr 50 mg PO DAILY Qty: 90 3RF Rx Instructions: total 150 mg/day (taken with a 100 mg tab) budesonide-formoterol [Symbicort] 160-4.5 mcg/actuation HFA aerosol inhaler 2 puff Inhalation BID Qty: 1 3RF fluticasone propionate 50 mcg/actuation spray,suspension 2 spray intranasal DAILY Qty: 9.9 5RF Rx Instructions: administer into each nostril pantoprazole 40 mg tablet,delayed release (DR/EC) 40 mg PO DAILY Qty: 90 4RF rosuvastatin [Crestor] 40 mg tablet 40 mg PO DAILY Qty: 90 4RF Spiriva Respimat 1.25 mcg/actuation mist 2 puff IH DAILY Qty: 12 3RF tadalafil 20 mg tablet 20 mg PO DAILY PRN (Reason: sexual activity) Qty: 30 3RF Hold Instructions: Please hold this medication until you discuss this medication with your primary care provider Rx Instructions: administer approximately 30min before sexual activity; do not use more than 1 dose per 24hrs fluoxetine 40 mg capsule 40 mg PO DAILY Qty: 90 3RF famotidine 20 mg tablet 20 mg PO HS Qty: 90 3RF aspirin [Aspirin Low-Strength] 81 MG tablet,chewable 81 mg PO DAILY (DME) lancets [OneTouch Delica Lancets] 1 EACH misc 1 ea Miscellaneous TID Qty: 100 Rx Instructions: diabetes 250.00 (DME) blood-glucose meter [OneTouch Ultra2 Meter] 1 EACH kit 1 ea Miscellaneous DAILY Qty: 1 (DME) blood-glucose meter [OneTouch UltraMini] 1 EACH kit 1 ea Miscellaneous QID Qty: 1 (DME) FreeStyle Carlos 14 Day [place] Misc See Rx Instructions .ROUTE .MEDSUPPLY Qty: 1 0RF Rx Instructions: As directed (DME) blood sugar diagnostic Strip See Dose Instructions .ROUTE .MEDSUPPLY Qty: 400 3RF Dose Instruction: test daily Rx Instructions: test 4x/day ranolazine [Ranexa] 500 mg tablet extended release 12 hr 500 mg PO BID Qty: 60 11RF sildenafil 100 mg tablet 100 mg PO DAILY PRN (Reason: sexual activity) Qty: 90 3RF Rx Instructions: administer 30 minutes to 4 hours before activity albuterol sulfate [ProAir HFA] 90 mcg/actuation HFA aerosol inhaler 2 puff Inhalation Q4H PRN Qty: 3 4RF Humulin R U-500 (Conc) Kwikpen 500 unit/mL (3 mL) insulin pen 25 - 50 unit SUBCUT TID Qty: 27 3RF (DME) pen needle, diabetic [Pen Needle] 31 gauge x 5/16 needle 1 ea Miscellaneous TID Qty: 100 11RF Rx Instructions: inject TID Rybelsus 14 mg tablet 14 mg PO DAILY Qty: 90 3RF gabapentin 100 mg capsule 100 mg PO BID Qty: 180 3RF (DME) FreeStyle Carlos 14 Day Sensor Kit See Rx Instructions .ROUTE .MEDSUPPLY Qty: 2 11RF Rx Instructions: As directed ranolazine 500 mg tablet extended release 12 hr 500 mg PO BID Patient Comments: TAKE ONE TABLET BY MOUTH TWICE A DAY Discharge Instructions Instructions: Chest Pain (ED), Chest Wall Pain (ED) Stand Alone Forms: Work Release Referrals: Fer Michaels [ NON-[facility] STAFF PHYSICIAN] - Discharge Data Discharge Physician: Sesar Rust Medical Decision Making Suumary: Patient presented to the emergency department with left substernal chest pain earlier today relieved by nitroglycerin and lasted a few minutes. In the emergency department he had an EKG 2 serial troponins 3 hours apart Labs and a chest x-ray. labs showed mild elevation of the troponin initially but then normal the second troponin. X-ray of the chest was negative and EKG does not show any acute abnormality and is unchanged from the previous EKG that he had done. Consultations: Patient who had a CABG years ago and who is followed by Dr. Garcia cardiology in [place] who I spoke who gave me information about the patient. The patient had a false positive echo done 2 years ago which found him to have a cardiac catheterization which showed that his grafts are patent. This patient had 2 grafts JARAMILLO to the LAD and KIA to the LAD which according to catheterization done 2 years ago are completely patent with very mild disease on the circumflex and diagonal which was prompted medical therapy. Furthermore the charcoal kiln burner said that this patient has had chest pain and similar to what he had today all along since he had his CABG but at this time they feel that this is not coronary in origin but most costochondral. The reason the charcoal kiln burner scheduled a CT coronary angiography next week was to completely rule out any disease and to get the patient to find another source of pain and take anti-in flammatories for this type of chest pain and not nitroglycerin. Shared decision making: I have reviewed all the data and analyze it and shared with the patient who understands and have reassured him this time there is no evidence of he has acute coronary syndrome he will continue to follow as planned on September 03, [address] coronary angiography as prescribed by his charcoal kiln burner and will follow with his charcoal kiln burner as well. At this time the patient will take Motrin 400 mg if needed for atypical chest pain Differential Diagnosis Differential Diagnosis: 1. Acute coronary syndrome 2. Atypical chest pain 3. Costochondritis Medical Records Medical records reviewed: Yes I reviewed the patient's medical records. Imaging Data Radiologic Study: Attestation: I personally reviewed and interpreted this imaging study as follows: Imaging: X-Ray My impression: X-ray does not show any acute abnormality Radiologist's impression: Radiologist interpretation agrees that there is no acute abnormality in this patient's chest x-ray Lab Data Lab results reviewed: Yes I reviewed the patient's lab results. Labs: RUN DATE: 08/25/22 [facility] PAGE 1 RUN TIME: [id number] RUN USER: [place] [address] Danni Coburn MD PATIENT REPORT PATIENT: Rajendra Richardson LOC: ER U #: [id number] /SX: 1965 M ROOM: RE08/25/[address]: Sesar Rust M.D. STATUS: REG ER BED: DIS: SPEC #: [id number] WAN: 08/25/22 STATUS: COMP REQ #: [id number] RECD: 08/25/[address] [facility] [address]: Sesar Rust M.D. ENTERED: 08/25/[address] [facility] [address]: HUMBERTO HUIZAR, JOS FAX #: ORDERED: CBC/Diff Test Result Flag Reference Verified WBC 6.86 4.4-10.8 10^3/uL 08/25/22 RBC 5.05 4.36-5.78 10^6/uL 08/25/22 HGB 13.8 13.5-17.5 g/dL 08/25/22 HCT 41.6 40.0-50.0 % 08/25/22 MCV 82 80-95 fL 08/25/22 MCH 27.3 27.0-33.0 pg 08/25/22 MCHC 33.2 32.0-36.0 % 08/25/22 RDW 13.6 11.8-14.1 % 08/25/22 Platelet Count 306 130-400 10^3/uL 08/25/22 MPV 11.5 H 8.0-11.0 fL 08/25/22 Neutrophils % 62.3 08/25/22 Lymphocytes % 20.8 08/25/22 Monocytes % 14.3 08/25/22 Eosinophils % 1.3 08/25/22 Basophils % 1.0 08/25/22 Immature Grans % 0.3 08/25/22 Nucleated RBC 0.0 0.0-0.3 % 08/25/22 Absolute Neutrophil Count 4.27 1.2-6.7 10^3/uL 08/25/22 Absolute Lymphocyte Count 1.43 1.2-3.4 10^3/uL 08/25/22 Absolute Monocyte Count 0.98 H 0.1-0.8 10^3/uL 08/25/22 Absolute Eosinophil Count 0.09 0.0-0.7 10^3/uL 08/25/22 Absolute Basophil Count 0.07 0.0-0.2 10^3/uL 08/25/22 Patient: Rajendra Richardson LABORATORY Acct#[id number] Unit#[id number] Rajendra Richardson??57??M??1965 ? Allergy/Adv: No Known Allergies Back Sodium Level (Complete) 08/25/22 Sodium Level (Complete) 12/18/21 Sodium Level (Complete) 04/01/21 Sodium Level (Complete) 10/31/20 Sodium Level (Complete) 10/31/20 Sodium Level (Complete) 07/11/19 Sodium Level (Complete) 06/23/19 Sodium Level (Complete) 04/30/16 Sodium Level (Complete) 03/09/16 Sodium Level (Complete) 12/07/15 Sodium Level (Complete) 06/16/14 Sodium Level (Complete) 05/15/14 Sodium Level (Complete) 03/20/13 RUN DATE: 08/25/22 [facility] PAGE 1 RUN TIME: [id number] RUN USER: [place] [address] Dnani Coburn MD PATIENT REPORT PATIENT: Rajendra Richardson LOC: ER U #: [id number] /SX: 1965 M ROOM: RE08/25/[address]: Sesar Rust M.D. STATUS: REG ER BED: DIS: SPEC #: [id number] WAN: 08/25/22 STATUS: COMP REQ #: [id number] RECD: 08/25/[address]: Sesar Rust M.D. ENTERED: 08/25/[address] [facility] [address]: JOS NANCE MD FAX #: ORDERED: CMP, MG, Troponin I, NT-proBNP Test Result Flag Reference Verified Calcium 9.0 8.5-10.1 mg/dL 08/25/22 Glucose 153 H 74-106 mg/dL 08/25/22 BUN 16 7-18 mg/dL 08/25/22 Creatinine 1.3 0.70-1.30 mg/dL 08/25/22 Estimated GFR 64.47 mL/min/1.73m2 08/25/22 The eGFR is calculated from a serum creatinine using the CKD-EPI 202 equation. Other variables required for the equation are gender and age; this equation does not include a race coefficient. This equation has similar overall performance to previous equations except values may differ, in particular, in patients with higher values of eGFR and younger-aged adults. Total Protein 7.2 6.4-8.2 g/dL 08/25/22 Albumin 3.5 3.4-5.0 g/dL 08/25/22 Bilirubin, Total 0.5 0.2-1.0 mg/dL 08/25/22 Alk Phos 77 46-116 U/L 0 08/25/22 Sodium 139 136-145 mmol/L 08/25/22 Potassium 4.0 3.5-5.1 mmol/L 08/25/22 Chloride 102 98-107 mmol/L 08/25/22 CO2 30.2 21.0-32.0 mmol/L 08/25/22 Anion Gap 6.8 3-11 mmol/L 08/25/22 AST 16 15-37 U/L 08/25/22 ALT 30 16-63 U/L 08/25/22 Magnesium 1.5 L 1.8-2.4 mg/dL 08/25/22 Cardiac Troponin I 64 *H <or=60 ng/L 08/25/22 Critical value reported to and readback from Dr.Michael Chaparro at 0900 08/25/22 by LAB.[email or web address] An elevated/abnormal troponin value above 60ng/L (which is the 99th percentile cutoff of a normal, healthy reference population) must be interpreted in the context of the clinical presentation. Clinical and laboratory correlation is required to evaluate for an acute myocardial infarction. The results of this assay can be falsely lowered due to the consumption of Biotin (Vitamin B7). NT-proBNP 94 <300 pg/mL 08/25/22 NT-proBNP values <300 pg/mL have a 98% negative predictive value for excluding acute congestive heart failure(CHF). NOTE: Supra-physiologic doses of Biotin(B7)may cause false negative results. Patient: Rajendra Richardson LABORATORY Acct#[id number] Unit#[id number] Back Troponin I (Complete) 08/25/22 Troponin I (Complete) 08/25/22 Troponin I (Complete) 12/18/21 Troponin I (Complete) 12/18/21 Troponin I (Complete) 11/01/20 Troponin I (Complete) 10/31/20 Troponin I (Cancelled) 07/11/19 Troponin I (Complete) 07/11/19 Troponin I (Complete) 07/11/19 Troponin I (Complete) 07/11/19 Troponin I (Cancelled) 06/23/19 Troponin I (Complete) 06/23/19 Troponin I (Complete) 06/23/19 Troponin I (Complete) 03/09/16 Troponin I (Complete) 03/20/13 Troponin I (Complete) 03/20/13 Troponin I (Complete) 03/20/13 RUN DATE: 08/25/22 [facility] PAGE 1 RUN TIME: [id number] RUN USER: [place] [address] Danni Coburn MD PATIENT REPORT PATIENT: Rajendra Richardson LOC: ER U #: [id number] /SX: 1965 M ROOM: RE08/25/[address]: Sesar Rust M.D. STATUS: REG ER BED: DIS: SPEC #: [id number] WAN: 08/25/22 STATUS: COMP REQ #: [id number] RECD: 08/25/[address]: Sesar Rust M.D. ENTERED: 08/25/[address] [facility] [address]: JOS NANCE MD FAX #: ORDERED: Troponin I Test Result Flag Reference Verified Cardiac Troponin I 60 <or=60 ng/L 08/25/22-1149 Patient: Rajendra Richardson LABORATORY Acct#[id number] Unit#[id number] ECG Data Attestation: I personally reviewed and interpreted this ECG (s) as follows: Prior ECG tracings: available for review Interpretation: Normal sinus rhythm heart rate 68 old probably anteroseptal infarct with Q waves in V1 V2 unchanged from the previous EKG HPI General Date/Time Provider Initiated Documentation: 08/25/22 07:59 . HPI Narrative: Patient presents emergency department complaining of 2 episodes of left substernal chest pain that she rates about a pressure in the last few minutes associated with shortness of breath and diaphoresis. Patient states that he had a CABG and stents 4 years ago but has continued to have chest pain ever since coming to the ED being ruled out. Saw his charcoal kiln burner 1 week ago who decided that he needs a CT coronary angiography or a catheterization that is scheduled for September 03. States that he took sublingual nitroglycerin once which made the pain subside denies any cough states the pain was about a 6/10 and now is 0 Related Data Home Medications Medication Instructions Recorded Confirmed aspirin 81 mg chewable tablet 81 mg PO DAILY 03/27/13 08/25/22 (Aspirin Low-Strength) lancets 33 gauge (OneTouch Delica #100 ea 03/26/14 08/25/22 Lancets) blood-glucose meter (OneTouch ##1 01/22/16 08/25/22 Ultra2 Meter kit) blood-glucose meter (OneTouch ##1 05/29/16 08/25/22 UltraMini kit) budesonide-formoterol HFA 160 2 puff inhalation BID ##1 07/05/19 08/25/22 mcg-4.5 mcg/actuation aerosol inhaler (Symbicort) ranolazine 500 mg tablet,extended 500 mg PO BID 10/31/20 08/25/22 release,12 hr flash glucose scanning reader #1 ea 01/27/21 08/25/22 (FreeStyle Carlos 14 Day [place]) fluticasone propionate 50 2 spray intranasal DAILY #9.9 grams 04/30/21 08/25/22 mcg/actuation nasal spray,suspension pantoprazole 40 mg tablet,delayed 40 mg PO DAILY #90 tab-caps 08/06/21 08/25/22 release rosuvastatin 40 mg tablet (Crestor) 40 mg PO DAILY #90 tab-caps 08/06/21 08/25/22 tiotropium bromide 1.25 2 puff inhalation DAILY #12 grams 08/06/21 08/25/22 mcg/actuation mist for inhalation (Spiriva Respimat) blood sugar diagnostic #400 ea 09/30/21 08/25/22 tadalafil 20 mg tablet 20 mg PO DAILY PRN sexual activity 11/12/21 08/25/22 #30 tabs ranolazine 500 mg tablet,extended 500 mg PO BID #60 tabs 02/12/22 08/25/22 release,12 hr (Ranexa) famotidine 20 mg tablet 20 mg PO HS #90 tabs 02/17/22 08/25/22 fluoxetine 40 mg capsule 40 mg PO DAILY #90 caps 02/17/22 08/25/22 sildenafil 100 mg tablet 100 mg PO DAILY PRN sexual 04/30/22 08/25/22 activity #90 tabs amlodipine 10 mg tablet 10 mg PO DAILY #90 tabs 05/26/22 08/25/22 empagliflozin 25 mg tablet 25 mg PO DAILY #90 tabs 05/26/22 08/25/22 (Jardiance) metformin 1,000 mg tablet 1,000 mg PO BID #180 tab-caps 05/26/22 08/25/22 metoprolol succinate 100 mg 100 mg PO DAILY #90 tabs 05/26/22 08/25/22 tablet,extended release 24 hr albuterol sulfate 90 mcg/actuation 2 puff inhalation Q4H PRN ##3 06/03/22 08/25/22 aerosol inhaler (ProAir HFA) insulin regular hum U-500 conc 500 25 - 50 unit (0.05 - 0.1 mL) 06/03/22 08/25/22 unit/mL(3 mL) subcut pen (Humulin subcut TID #27 mL R U-500 (Conc) Insulin Kwikpen) pen needle, diabetic 31 gauge x #100 ea 06/04/22 08/25/22 5/16 (Pen Needle) semaglutide 14 mg tablet (Rybelsus) 14 mg PO DAILY #90 tabs 06/22/22 08/25/22 metoprolol succinate 25 mg 50 mg PO DAILY #90 tabs 07/15/22 08/25/22 tablet,extended release 24 hr nitroglycerin 0.4 mg sublingual 0.4 mg sublingual Q5-15M PRN chest 07/15/22 08/25/22 tablet (Nitrostat) pain #25 tab-caps gabapentin 100 mg capsule 100 mg PO BID #180 tab-caps 07/27/22 08/25/22 flash glucose sensor ([email or web address] #2 ea 07/28/22 08/25/22 Carlos 14 Day Sensor kit) naproxen 375 mg tablet,delayed 375 mg PO BID #20 tabs 08/25/22 release (EC-Naproxen) Previous Rx's Medication Instructions Recorded budesonide-formoterol HFA 160 2 puff inhalation BID ##1 07/05/19 mcg-4.5 mcg/actuation aerosol inhaler (Symbicort) flash glucose scanning reader #1 ea 01/27/21 (FreeStyle Carlos 14 Day [place]) fluticasone propionate 50 2 spray intranasal DAILY #9.9 grams 04/30/21 mcg/actuation nasal spray,suspension pantoprazole 40 mg tablet,delayed 40 mg PO DAILY #90 tab-caps 08/06/21 release rosuvastatin 40 mg tablet (Crestor) 40 mg PO DAILY #90 tab-caps 08/06/21 tiotropium bromide 1.25 2 puff inhalation DAILY #12 grams 08/06/21 mcg/actuation mist for inhalation (Spiriva Respimat) blood sugar diagnostic #400 ea 09/30/21 tadalafil 20 mg tablet 20 mg PO DAILY PRN sexual activity 11/12/21 #30 tabs ranolazine 500 mg tablet,extended 500 mg PO BID #60 tabs 02/12/22 release,12 hr (Ranexa) famotidine 20 mg tablet 20 mg PO HS #90 tabs 02/17/22 fluoxetine 40 mg capsule 40 mg PO DAILY #90 caps 02/17/22 sildenafil 100 mg tablet 100 mg PO DAILY PRN sexual 04/30/22 activity #90 tabs amlodipine 10 mg tablet 10 mg PO DAILY #90 tabs 05/26/22 empagliflozin 25 mg tablet 25 mg PO DAILY #90 tabs 05/26/22 (Jardiance) metformin 1,000 mg tablet 1,000 mg PO BID #180 tab-caps 05/26/22 metoprolol succinate 100 mg 100 mg PO DAILY #90 tabs 05/26/22 tablet,extended release 24 hr albuterol sulfate 90 mcg/actuation 2 puff inhalation Q4H PRN ##3 06/03/22 aerosol inhaler (ProAir HFA) insulin regular hum U-500 conc 500 25 - 50 unit (0.05 - 0.1 mL) 06/03/22 unit/mL(3 mL) subcut pen (Humulin subcut TID #27 mL R U-500 (Conc) Insulin Kwikpen) pen needle, diabetic 31 gauge x #100 ea 06/04/2209/15 (Pen Needle) semaglutide 14 mg tablet (Rybelsus) 14 mg PO DAILY #90 tabs 06/22/22 metoprolol succinate 25 mg 50 mg PO DAILY #90 tabs 07/15/22 tablet,extended release 24 hr nitroglycerin 0.4 mg sublingual 0.4 mg sublingual Q5-15M PRN chest 07/15/22 tablet (Nitrostat) pain #25 tab-caps gabapentin 100 mg capsule 100 mg PO BID #180 tab-caps 07/27/22 flash glucose sensor (FreeStyle #2 ea 07/28/22 Carlos 14 Day Sensor kit) naproxen 375 mg tablet,delayed 375 mg PO BID #20 tabs 08/25/22 release (EC-Naproxen) Allergies Allergy/AdvReac Type Severity Reaction Status Date / Time No Known Allergies Allergy Verified 08/25/22 07:51 General Stated Complaint: Chest Pain CAMERON: 3 Review of Systems All systems reviewed & are unremarkable except as noted in HPI and below PFSH All Active Problems (Updated 08/25/22 @ 12:38 by Sesar Rust MD) Erectile dysfunction (Acute) Right rib fracture (Acute) Acute chest wall pain (Acute) Allergic sinusitis (Acute) Tubular adenoma (Acute ~10/2020) DVT prophylaxis (Acute) Urinary retention (Acute) Cardiac defibrillator in place (Acute) Elevated troponin (Acute) Anemia due to blood loss, acute (Acute) Rectal bleeding (Acute) Ischemic cardiomyopathy (Chronic) Non-ST elevated myocardial infarction (non-STEMI) (Acute) Chest pain (Acute) Chest pain (Acute) Acute non-ST elevation myocardial infarction (NSTEMI) (Acute) COPD (chronic obstructive pulmonary disease) (Chronic) Diabetes mellitus (Chronic) better Coronary artery disease involving [place] heart with angina pectoris (Acute 02/08/15) Acute bilateral low back pain with right-sided sciatica (Acute) Sinus headache (Acute) Low blood sugar (Acute) he will continue to dose reduce insulin to avoid low sugars History of intravascular stent placement (Acute) Anxiety (Chronic) seems c/p may be somatic; better w/ SSRI Type II diabetes mellitus, uncontrolled (Acute) add a bedtime dose of U-500--start at 10 units and increase by 1 unit each night until sugars in the morning are around 130-140 continue other dosing as is for now Systolic dysfunction (Acute 04/09/16) Panlobular emphysema (Acute 06/19/15) Old myocardial infarction (Acute) Hyperlipidemia (Acute 07/12/12) History of tobacco use (Acute) Chest pain (Acute 03/20/13) Unstable angina (Acute 03/20/13) Coronary artery disease (Acute 03/20/13) Hyperlipidemia (Chronic) Surgical History History of colonoscopy (~10/2020) S/P CABG (coronary artery bypass graft) Stent placement x 2 Social History Smoking/Tobacco Use Status: Former Tobacco Use Smoking risk assessment performed?: Yes Alcohol Intake: current Alcohol Intake frequency: holidays/special occasions only Drug use: Never Substance use type: does not use Do you feel safe at home: Yes Do you feel safe in your relationship?: Yes Additional Social history: Lives with . Works at [employer] Ex[employer] Const General: cooperative, healthy appearing, comfortable, no acute distress and well developed [facility] Head: normal to inspection, normocephalic and atraumatic Ears: hearing grossly normal bilaterally Eyes General: appearance normal, both eyes and all related structures Neck Neck: normal visual inspection, full ROM, no lymphadenopathy and trachea midline Chest Chest: normal inspection of the chest and normal palpation of entire chest wall Resp Effort & Inspection: normal respiratory effort and able to speak in complete sentences Cardio Jugular venous pressure: no JVD Palpation: normal PMI Rate: regular rate Rhythm: regular rhythm Heart Sounds: S1 normal and S2 normal GI Inspection: normal to inspection Back/Spine/Pelvis Back: no CVA tenderness Thoracic/Lumbar Spine: thoracic and lumbar spine normal to inspection Skin General skin exam: no rashes or lesions noted Neuro General: patient alert, patient awake and patient oriented x3 Extrem General: normal to inspection and no pedal edema Course Reevaluation(s) Initial Evaluation: Patient has had no chest pain throughout the stay in the emergency department not requiring any analgesics Labs are back and the 2 troponins the second 1 is negative spoke with cardiology about the patient Time: 12:28 Consultations Consultation #1: Dr Michaels cardiology in [facility] [place] Time: 12:15 Vital Signs Vital signs: Vital Signs Temperature 36.6 C 08/25/22 07:45 Pulse 69 08/25/22 07:45 Respiratory Rate 18 08/25/22 07:45 Blood Pressure 102/77 08/25/22 07:45 Pulse Oximetry 98 08/25/22 07:45 Temperature 36.6 C 08/25/22 07:45 Temperature Source Oral 08/25/22 07:45 Pulse 69 08/25/22 07:45 Respiratory Rate 18 08/25/22 07:45 Blood Pressure 102/77 08/25/22 07:45 Blood Pressure Position Supine 08/25/22 07:45 Pulse Oximetry 98 08/25/22 07:45 Oxygen Delivery Method Room Air 08/25/22 07:45 Oxygen Flow Rate 0 08/25/22 07:45 Pain Level 0 08/25/22 07:45
[2022-08-25 08:37] LABS: Abs Immature Grans 0.02 10^3/uL (0.0-0.06); Absolute Basophil Count 0.07 10^3/uL (0.0-0.2); Absolute Eosinophil Count 0.09 10^3/uL (0.0-0.7); Absolute Lymphocyte Count 1.43 10^3/uL (1.2-3.4); Absolute Monocyte Count 0.98 10^3/uL (0.1-0.8); Absolute Neutrophil Count 4.27 10^3/uL (1.2-6.7); Eosinophils % 1.3; HCT 41.6 % (40.0-50.0); HGB 13.8 g/dL (13.5-17.5); Immature Grans % 0.3; Lymphocytes % 20.8; MCH 27.3 pg (27.0-33.0); MCHC 33.2 % (32.0-36.0); MCV 82 fL (80-95); MPV 11.5 fL (8.0-11.0); Monocytes % 14.3; Neutrophils % 62.3; Platelet Count 306 10^3/uL (130-400); RBC 5.05 10^6/uL (4.36-5.78); RDW 13.6 % (11.8-14.1); RDW-SD 40.9 fL; WBC 6.86 10^3/uL (4.4-10.8)
--- NOTE | 2022-08-25 08:42 | DI.RAD_ITS ---
Exam(s) XR PORTABLE CHEST AP EXAM: XR PORTABLE CHEST AP CLINICAL HISTORY: chest pain TECHNIQUE: 2D digital imaging was performed of the chest. Two images were obtained. AP views were obtained. COMPARISON: CR XR PORTABLE CHEST AP from 07/11/2019 CR XR RIBS RT W PA LAT CHEST from 05/13/2021 FINDINGS: MEDIASTINUM: Normal. HEART: Normal. Status post CABG. PULMONARY VASCULATURE: Normal. LUNGS: Clear. PLEURAL SPACE: No pleural effusion or pneumothorax. BONE:Within normal limits for the patient's age. OTHER FINDINGS:There is a left-sided cardiac pacing device. IMPRESSION: No acute pulmonary findings. DATA REPOSITORY: RADIATION DOSE DELIVERED:
[2022-08-25 08:58] LABS: ALT 30 U/L (16-63); AST 16 U/L (15-37); Albumin 3.5 g/dL (3.4-5.0); Alkaline Phosphatase 77 U/L (46-116); Anion Gap 6.8 mmol/L (3-11); BUN 16 mg/dL (7-18); Bilirubin, Total 0.5 mg/dL (0.2-1.0); CO2 30.2 mmol/L (21.0-32.0); CREATININE 1.3 mg/dL (0.70-1.30); Chloride 102 mmol/L (98-107); Estimated GFR 64.47 (mL/min/1.73m2); Glucose 153 mg/dL (74-106); Magnesium 1.5 mg/dL (1.8-2.4); NT-proBNP 94 pg/mL (<300); Sodium 139 mmol/L (136-145); Total Protein 7.2 g/dL (6.4-8.2)
[2022-08-25 09:03] LABS: Troponin I 64 ng/L (<or=60)
[2022-08-25 11:48] LABS: Troponin I 60 ng/L (<or=60)
== END 2022-08-25 12:52 | disposition home or self-care (01) ==
PROVIDERS: Emergency Provider Emergency Medicine Emergency Medical Services; PCP Family Medicine
DX: R07.2 Precordial pain (principal); R77.8 Other specified abnormalities of plasma proteins; Z95.1 Presence of aortocoronary bypass graft; Z79.82 Long term (current) use of aspirin
CPT/HCPCS: 36415; 80053; 93005; 99283; 71045; 83735; 83880; 84484; 85025; 93010

== ENCOUNTER 2022-10-15 01:37 | Outpatient (CLI) | payer MEDICAID, SELFPAY ==
[2022-10-15] MEDS: Albuterol HFA 18 GM 200 PUFF INH IH (09:33)
[2022-10-15] MEDS: Inhaler, Assist Device 1 EACH MC (09:33)
--- NOTE | 2022-10-16 12:40 | W.PFT ---
Date of service: 10/15/22 Time of Service: 07:59 Pulmonary Function Test Result Indications: COPD Interpretation Spirometry: There is no airflow limitation. There is no bronchodilator response. Lung Volumes: There is some hyperinflation and air trapping. Diffusion Capacity: Normal diffusion Airway Pressure: Normal airways resistance. Impression There is air trapping but no airflow obstruction. This can be seen in emphysema and/or asthma. Clinical Correlation therefore is recommended.
== END 2022-10-15 01:38 | disposition home or self-care (01) ==
LOC: RT 01:38
PROVIDERS: PCP Family Medicine; Visit Provider Physician Assistant Surgical
DX: J44.9 Chronic obstructive pulmonary disease, unspecified (principal)
CPT/HCPCS: 94060; 94726; 94729

== ENCOUNTER 2022-12-10 02:58 | Outpatient (CLI) | payer MEDICAID, SELFPAY ==
[2022-12-10] MEDS: Inhaler, Assist Device 1 EACH MC (11:41)
[2022-12-10] MEDS: Albuterol HFA 18 GM 200 PUFF INH IH (11:41)
[2022-12-10] MEDS: Methacholine 100 MG VIAL IH (11:41)
--- NOTE | 2022-12-15 07:24 | W.PFT ---
Date of service: 12/10/22 Time of Service: 10:04 Pulmonary Function Test Result Indications: Air trapping Interpretation Spirometry: No baseline airflow limitation. There was a 14% decrease with administration of 16 mg/mL methacholine. Impression Negative methacholine challenge test. Clinical Correlation therefore is recommended.
== END 2022-12-10 02:59 | disposition home or self-care (01) ==
LOC: RT 02:58
PROVIDERS: PCP Family Medicine; Visit Provider Student in an Organized Health Care Education/Training Program
DX: J44.9 Chronic obstructive pulmonary disease, unspecified (principal)
CPT/HCPCS: 94060; 94070; J7674

== ENCOUNTER → 2023-01-11 16:28 | Outpatient (CLI) | payer MEDICAID, SELFPAY ==
--- NOTE | 2023-01-11 15:30 | DI.RAD_ITS ---
Exam(s) XR ELBOW LT COMPLETE EXAM: XR ELBOW LT COMPLETE CLINICAL HISTORY: left elbow pain, M25.522. TECHNIQUE: 2D digital imaging was performed. COMPARISON: No exams were available for comparison FINDINGS: 3 views No evidence of acute fracture nor elevation of the anterior fat pad to suggest joint effusion. There is some soft tissue swelling over the dorsal forearm as well as over the olecranon bursa region. No radiopaque foreign body seen Radial head and neck appear unremarkable. There is small bony excrescence off the lateral epicondyle and a smaller epicondylar excrescence on the medial epicondyle. May reflect epicondylitis. No omin ous osseous lesions. IMPRESSION: Dorsal soft tissue swelling. No fractures. Swelling of the olecranon bursa. Findings at the epicondyles consistent with probable epicondylitis, more so on lateral epicondyle lev el. DATA REPOSITORY: RADIATION DOSE DELIVERED:
== END ==
PROVIDERS: PCP Family Medicine; Visit Provider Physician Assistant
DX: M25.522 Pain in left elbow (principal)
CPT/HCPCS: 73080

== ENCOUNTER 2023-09-24 07:59 | Outpatient (REF) | payer MEDICAID, SELFPAY ==
[2023-09-23 23:02] LABS: COMMENT (LAB VIEW ONLY) 67.87 mg/dL; Microalb ug/mg Crea 11.8 ug/mg Cr
== END 2023-09-24 08:00 | disposition home or self-care (01) ==
LOC: LBN 07:59
PROVIDERS: PCP Family Medicine; Visit Provider Family Medicine
DX: E11.9 Type 2 diabetes mellitus without complications (principal)
CPT/HCPCS: 82043; 82570

== ENCOUNTER 2024-12-20 03:00 | Outpatient (CLI) | payer MEDICAID, SELFPAY ==
[2024-12-20 12:37] LABS: Anion Gap 10.2 mmol/L (3-11); BUN 11 mg/dL (7-18); CO2 27.8 mmol/L (21.0-32.0); Calcium 8.9 mg/dL (8.5-10.1); Calculated LDL 201 mg/dL (<100); Chloride 102 mmol/L (98-107); Cholesterol 294 mg/dL (<200); Estimated GFR 70.10 (mL/min/1.73m2); Glucose 186 mg/dL (74-106); HDL Cholesterol 50 mg/dL (>or=40); Potassium 4.0 mmol/L (3.5-5.1); Sodium 140 mmol/L (136-145); Triglyceride 217 mg/dL (<150)
== END 2024-12-20 03:01 | disposition home or self-care (01) ==
LOC: LOS 03:00
PROVIDERS: PCP Family Medicine; Visit Provider Family Medicine
DX: E78.5 Hyperlipidemia, unspecified (principal); R42 Dizziness and giddiness
CPT/HCPCS: 36415; 80048; 80061